=== PATIENT | female | born 1950 | race Caucasian/White ===

== ENCOUNTER → 2020-08-23 | Outpatient (REF) | payer OTHER | LOC: M LAB REF 16:44 | PROVIDERS: ATTEND Internal Medicine Nephrology | DX: R60.9 Edema, unspecified (principal) ==

== ENCOUNTER → 2020-10-03 | Outpatient (REF) | payer OTHER ==
[2020-10-03 17:54] LABS: COMPLEMENT C3 181 MG/DL (90-180); COMPLEMENT C4 39 MG/DL (10-40); TOTAL PROTEIN 8.4 GM/DL (6.4-8.2)
[2020-10-04 09:45] LABS: HEPATITIS B SURFACE ANTIBODY NEGATIVE (POSITIVE)
[2020-10-04 09:55] LABS: HEPATITIS B SURFACE ANTIGEN NEGATIVE (NEGATIVE)
[2020-10-04 10:23] LABS: HEPATITIS C VIRUS ABY INDEX < 0.0 INDEX (<0.8)
[2020-10-04 10:24] LABS: HEPATITIS B CORE ANTIBODY IGM NEGATIVE (NEGATIVE)
[2020-10-04 13:09] LABS: ALBUMIN 4.38 GM/DL (3.29-5.55); ALBUMIN % 52.1 % (55.8-66.1); ALPHA-1-GLOBULIN % 5.1 % (2.9-4.9); ALPHA-1-GLOBULINS 0.43 GM/DL (0.17-0.41); ALPHA-2-GLOBULINS 1.13 GM/DL (0.42-0.99); ALPHA-2-GLOBULINS % 13.5 % (7.1-11.8); BETA-1-GLOBULINS % 7.2 % (4.7-7.2); BETA-2-GLOBULINS 0.56 GM/DL (0.19-0.55); BETA-2-GLOBULINS % 6.7 % (3.2-6.5); GAMMA GLOBULIN % 15.4 % (11.1-18.8); GAMMA GLOBULINS 1.29 GM/DL (0.65-1.58)
== END ==
LOC: M LAB REF 17:00
PROVIDERS: ATTEND Internal Medicine Nephrology
DX: R80.9 Proteinuria, unspecified (principal)

== ENCOUNTER → 2021-03-14 | Outpatient (REF) | payer OTHER | LOC: M LAB REF 17:11 | PROVIDERS: ATTEND Internal Medicine Nephrology | DX: R80.9 Proteinuria, unspecified (principal); E83.42 Hypomagnesemia; N18.31 Chronic kidney disease, stage 3a ==

== ENCOUNTER → 2022-02-20 | Outpatient (REF) | payer OTHER ==
[2022-02-20 23:10] LABS: FERRITIN 103.6 NG/ML (7.3-270.7); PERCENT SATURATION 17.4 % (13.2-45.0)
[2022-02-20 23:15] LABS: FOLATE 16.7 NG/ML (>3.0)
== END ==
LOC: M LAB REF 17:19
PROVIDERS: ATTEND Internal Medicine Nephrology
DX: N18.9 Chronic kidney disease, unspecified (principal); D63.1 Anemia in chronic kidney disease

== ENCOUNTER → 2022-03-12 | Outpatient (CLI) | payer OTHER | LOC: M LABSMTC 11:01 | PROVIDERS: ATTEND Anesthesiology | DX: Z01.812 Encounter for preprocedural laboratory examination (principal); Z20.822 Contact with and (suspected) exposure to COVID-19 ==

== ENCOUNTER 2022-03-16 07:56 | Day surgery (SDC) | payer OTHER ==
[~2022-03-16] VITALS: Ht 152.4 cm; Wt 142.9 kg
[~2022-03-16 07:56] MED LIST: ACET650T61 PO; CALC1CAP31 PO; CARV3.12 PO; GLIM4TAB5 PO; HYDR-3490 PO; INSU100I12 SC; LISI40TA4 PO; MAGN200T PO; NITR4TASL SL; NS 1,000 ML IV ONE; PRESCAP PO; PROBCAP14 PO; SIMV20TA22 PO; SYNT150T PO; insulin N SC
[2022-03-16] MEDS ORDERED: propofoL 200 MG/20 ML VIAL As Ordered ONE ×2 (08:11→09:38)
[2022-03-16] MEDS ORDERED: LIDOCAINE 2% 100MG/5ML SDV (FOR ANES.) As Ordered ONE (08:11)
[2022-03-16] MEDS ORDERED: fentaNYL 100 MCG/2 ML INJECTION As Ordered ONE (08:11)
[2022-03-16] MEDS ORDERED: INSULIN LISPRO (NovoLOG) PER UNIT SC PRN (09:00)
[2022-03-16] MEDS ORDERED: LIDOCAINE VISCOUS 2% SOLN 15ML UDC As Ordered ONE (09:36)
[2022-03-16] MEDS ORDERED: LIDOCAINE 2% JELLY 6ML SYRINGE As Ordered ONE (09:36)
[2022-03-16 10:25] VITALS: BP 132/73
== END 2022-03-16 10:36 | disposition home or self-care (01) ==
LOC: M OPP 07:56
PROVIDERS: ATTEND Internal Medicine Gastroenterology
DX: D12.3 Benign neoplasm of transverse colon (principal); C20 Malignant neoplasm of rectum; D49.0 Neoplasm of unspecified behavior of digestive system; K56.690 Other partial intestinal obstruction; R19.7 Diarrhea, unspecified; K92.1 Melena; Z79.02 Long term (current) use of antithrombotics/antiplatelets; Z79.4 Long term (current) use of insulin; Z79.899 Other long term (current) drug therapy; Z88.0 Allergy status to penicillin; Z88.6 Allergy status to analgesic agent; Z88.8 Allergy status to other drugs, medicaments and biological substances; Z91.013 Allergy to seafood; I10 Essential (primary) hypertension; E11.9 Type 2 diabetes mellitus without complications; E03.9 Hypothyroidism, unspecified; I34.1 Nonrheumatic mitral (valve) prolapse; R10.30 Lower abdominal pain, unspecified; R15.9 Full incontinence of feces; K62.9 Disease of anus and rectum, unspecified; Z87.19 Personal history of other diseases of the digestive system
CPT/HCPCS: 43235; 45380; 45385; 87507; 88305; J1815; J3010

== ENCOUNTER → 2022-04-06 | Outpatient (CLI) | payer OTHER ==
[~2022-04-06] MED LIST changes: +HYDR-3910 PO; +LIDO1CRE2 TOP; +MAGN400C PO; +MIRA3350 PO; -NS 1,000 ML IV ONE
== END ==
LOC: M ONCR 12:43
PROVIDERS: ATTEND General Practice
DX: C20 Malignant neoplasm of rectum (principal); N39.46 Mixed incontinence; M12.9 Arthropathy, unspecified; N81.10 Cystocele, unspecified; Z79.4 Long term (current) use of insulin; Z79.899 Other long term (current) drug therapy; Z88.0 Allergy status to penicillin; Z88.6 Allergy status to analgesic agent; Z88.8 Allergy status to other drugs, medicaments and biological substances; Z90.710 Acquired absence of both cervix and uterus; Z91.013 Allergy to seafood; Z91.018 Allergy to other foods; Z91.048 Other nonmedicinal substance allergy status; Z95.5 Presence of coronary angioplasty implant and graft

== ENCOUNTER 2022-04-16 11:39 | Outpatient (RCR) | payer OTHER ==
[2022-04-19] MEDS ORDERED: CARV6.25 (11:42)
[2022-04-19] MEDS ORDERED: GLIM4TAB5 PO (11:42)
[2022-04-19] MEDS ORDERED: INSUN SC (18:24)
[2022-04-23] MEDS ORDERED: ONDA4TAB6 SL (14:16)
[2022-04-23] MEDS ORDERED: LACT20EL PO (14:16)
[2022-04-24] MEDS ORDERED: LACT20EL PO (14:09)
[2022-05-01] MEDS ORDERED: OXYC-517 PO (11:12)
[2022-05-01] MEDS ORDERED: COLA100C5 PO (11:18)
[2022-05-01] MEDS ORDERED: DEXA4TA PO (11:18)
[2022-05-07] MEDS ORDERED: CONS10SO3 (07:44)
[2022-05-07] MEDS ORDERED: CARV6.25 (07:44)
[2022-05-07] MEDS ORDERED: HYDR25TA PO (09:43)
[2022-05-07] MEDS ORDERED: LISI40TA4 PO (09:43)
[2022-05-08] MEDS ORDERED: OXYC-517 PO (15:57)
== END 2022-05-08 ==
LOC: M ONCR 11:39
PROVIDERS: ATTEND General Practice
DX: C21.0 Malignant neoplasm of anus, unspecified (principal)

== ENCOUNTER → 2022-04-16 | Outpatient (CLI) | payer OTHER | LOC: M LABSMTC 11:58 | PROVIDERS: ATTEND Anesthesiology | DX: Z01.812 Encounter for preprocedural laboratory examination (principal); Z20.822 Contact with and (suspected) exposure to COVID-19 ==

== ENCOUNTER 2022-04-19 11:23 | Inpatient (IN) | payer OTHER ==
[~2022-04-19] VITALS: Ht 154.9 cm; Wt 135.2 kg
[~2022-04-19 11:23] MED LIST changes: -CARV6.25; -INSUN SC; -LACT20EL PO; -NS 1,000 ML IV SCH; -ONDA4TAB6 SL; -VANCOMYCIN HCL 1,000 MG, VIAL MATE ADAPTER 1 EACH in NS 250 ML IV ONE
[2022-04-19] MEDS ORDERED: NS 1,000 ML IV SCH (11:40)
[2022-04-19] MEDS ORDERED: GLIM4TAB5 PO (11:42)
[2022-04-19] MEDS ORDERED: CARV6.25 (11:42)
[2022-04-19 12:30] LABS: BASO # 0.1 10^3/uL (0.0-0.2); BASO % 0.5 % (0.0-1.0); EOS # 0.1 10^3/uL (0.0-0.5); EOS % 0.8 % (0.0-3.0); HEMATOCRIT 37.3 % (36.0-47.0); HEMOGLOBIN 11.9 g/dl (12.0-15.5); LYMPH # 1.4 10^3/uL (1.5-5.0); LYMPH % 12.2 % (24.0-44.0); MEAN CORPUSCULAR HEMOGLOBIN 31.2 pg (27.0-33.0); MEAN CORPUSCULAR HGB CONC 31.9 g/dl (32.0-36.5); MEAN CORPUSCULAR VOLUME 97.6 fl (80.0-96.0); MONO # 0.5 10^3/uL (0.0-0.8); MONO % 4.7 % (2.0-8.0); NEUTROPHILS % 81.5 % (36.0-66.0); PLATELET COUNT, AUTOMATED 218 10^3/uL (150-450); RED BLOOD COUNT 3.82 10^6/uL (4.00-5.40)
[2022-04-19 12:47] LABS: PROTHROMBIN TIME 13.4 SECONDS (12.5-14.5)
[2022-04-19 12:54] LABS: BLOOD UREA NITROGEN 19 MG/DL (9-23); CALCIUM LEVEL 10.1 MG/DL (8.3-10.6); CARBON DIOXIDE LEVEL 26 MMOL/L (20-31); CHLORIDE LEVEL 102 MMOL/L (98-107); CREATININE FOR GFR 0.96 MG/DL (0.55-1.30); GLOMERULAR FILTRATION RATE > 60.0 (>39); GLUCOSE, FASTING 191 MG/DL (74-106); SODIUM LEVEL 138 MMOL/L (136-145)
[2022-04-19 12:54] LABS: ALBUMIN 3.7 G/DL (3.2-5.2); BILIRUBIN,DIRECT 0.2 MG/DL (<0.4); BILIRUBIN,TOTAL 0.5 MG/DL (0.3-1.2); TOTAL PROTEIN 7.3 G/DL (5.7-8.2)
[2022-04-19] MEDS ORDERED: ACETAMINOPHEN 500 MG TAB PO ONE (15:35)
[2022-04-19] MEDS ORDERED: INSUN SC (18:24)
[2022-04-19] MEDS ORDERED: HOME MED LIST COMPLETE! XX SCH (18:25)
[2022-04-19 20:00] LABS: RSV AMPLIFICATION NEGATIVE (NEGATIVE)
[2022-04-19] MEDS ORDERED: GLUCOSE 4GM CHEW TABLET PO PRN (21:30)
[2022-04-19] MEDS ORDERED: DEXTROSE 50% 50ML SYRINGE IV PRN (21:30)
[2022-04-19] MEDS ORDERED: GLUCAGON INJ 1MG VIAL SC PRN (21:30)
[2022-04-19] MEDS ORDERED: MORPHINE 2 MG/ML 1ML VIAL IV PRN (22:05)
[2022-04-19 22:48] VITALS: BP 138/79
[2022-04-20] MEDS: ACETAMINOPHEN TAB 650MG DOSE (2X325MG) PO PRN ×2 (01:20→12:24)
[2022-04-20] MEDS: NYSTATIN 100,000 UNITS/GM TOPICAL PWD 15GM TOP SCH ×3 (01:20→20:36)
[2022-04-20 05:50] VITALS: BP 145/79
[2022-04-20] MEDS: LEVOTHYROXINE 150MCG TABLET (0.15MG) PO SCH (06:08)
[2022-04-20 06:14] LABS: BASO # 0.1 10^3/uL (0.0-0.2); BASO % 0.5 % (0.0-1.0); EOS # 0.2 10^3/uL (0.0-0.5); EOS % 2.2 % (0.0-3.0); HEMATOCRIT 36.1 % (36.0-47.0); HEMOGLOBIN 11.5 g/dl (12.0-15.5); LYMPH # 1.6 10^3/uL (1.5-5.0); LYMPH % 15.8 % (24.0-44.0); MEAN CORPUSCULAR HEMOGLOBIN 30.9 pg (27.0-33.0); MEAN CORPUSCULAR HGB CONC 31.9 g/dl (32.0-36.5); MONO # 0.6 10^3/uL (0.0-0.8); MONO % 5.5 % (2.0-8.0); NEUTROPHILS # 7.7 10^3/uL (1.5-8.5); NEUTROPHILS % 75.6 % (36.0-66.0); PLATELET COUNT, AUTOMATED 221 10^3/uL (150-450); RED BLOOD COUNT 3.72 10^6/uL (4.00-5.40); WHITE BLOOD COUNT 10.2 10^3/uL (4.0-10.0)
[2022-04-20 06:38] LABS: BLOOD UREA NITROGEN 16 MG/DL (9-23); CALCIUM LEVEL 8.9 MG/DL (8.3-10.6); CARBON DIOXIDE LEVEL 26 MMOL/L (20-31); CHLORIDE LEVEL 103 MMOL/L (98-107); CREATININE FOR GFR 0.88 MG/DL (0.55-1.30); GLOMERULAR FILTRATION RATE > 60.0 (>39); GLUCOSE, FASTING 160 MG/DL (74-106); POTASSIUM SERUM 4.6 MMOL/L (3.5-5.1); SODIUM LEVEL 138 MMOL/L (136-145)
[2022-04-20] MEDS: lisinopriL 40MG TAB PO SCH (07:58)
[2022-04-20] MEDS: **hydrALAZINE HCL** 25 MG TAB PO SCH (07:58)
[2022-04-20] MEDS: INSULIN LISPRO (NovoLOG) PER UNIT SC SCH ×4 (07:59→20:35)
[2022-04-20] MEDS ORDERED: ONDANSETRON 4MG ORAL DISINTEGRATING TAB SL PRN (12:40)
[2022-04-20 14:00] VITALS: BP 142/74
[2022-04-20 20:00] VITALS: BP 155/66
[2022-04-20] MEDS: LACTULOSE 20GM/30ML SYRUP UDC PO SCH (20:36)
[2022-04-20] MEDS: SIMVASTATIN 20 MG TAB PO SCH (20:36)
[2022-04-21] MEDS: ACETAMINOPHEN TAB 650MG DOSE (2X325MG) PO PRN ×2 (02:22→21:57)
[2022-04-21] MEDS: diphenhydrAMINE 25MG CAP PO PRN ×2 (02:22→09:38)
[2022-04-21 06:00] VITALS: BP 158/62
[2022-04-21] MEDS: LEVOTHYROXINE 150MCG TABLET (0.15MG) PO SCH (06:28)
[2022-04-21 06:48] LABS: BASO # 0.1 10^3/uL (0.0-0.2); BASO % 0.5 % (0.0-1.0); EOS # 0.3 10^3/uL (0.0-0.5); EOS % 2.8 % (0.0-3.0); HEMATOCRIT 34.9 % (36.0-47.0); HEMOGLOBIN 11.1 g/dl (12.0-15.5); LYMPH # 1.6 10^3/uL (1.5-5.0); LYMPH % 17.1 % (24.0-44.0); MEAN CORPUSCULAR HEMOGLOBIN 30.8 pg (27.0-33.0); MEAN CORPUSCULAR HGB CONC 31.8 g/dl (32.0-36.5); MEAN CORPUSCULAR VOLUME 96.9 fl (80.0-96.0); MONO # 0.6 10^3/uL (0.0-0.8); MONO % 6.7 % (2.0-8.0); NEUTROPHILS # 6.8 10^3/uL (1.5-8.5); NEUTROPHILS % 72.4 % (36.0-66.0); PLATELET COUNT, AUTOMATED 204 10^3/uL (150-450); WHITE BLOOD COUNT 9.4 10^3/uL (4.0-10.0)
[2022-04-21 07:09] LABS: BLOOD UREA NITROGEN 13 MG/DL (9-23); CALCIUM LEVEL 8.6 MG/DL (8.3-10.6); CARBON DIOXIDE LEVEL 26 MMOL/L (20-31); CHLORIDE LEVEL 105 MMOL/L (98-107); CREATININE FOR GFR 0.87 MG/DL (0.55-1.30); GLOMERULAR FILTRATION RATE > 60.0 (>39); GLUCOSE, FASTING 147 MG/DL (74-106); POTASSIUM SERUM 4.2 MMOL/L (3.5-5.1); SODIUM LEVEL 138 MMOL/L (136-145)
[2022-04-21 08:00] VITALS: BP 138/64
[2022-04-21] MEDS ORDERED: FLUBLOK(EGG FREE)(QUAD)INFLUENZA VACC 0.5ML SYRINGE 18YRS & OLDER IM.IMMUN ONE (09:00)
[2022-04-21] MEDS: INSULIN LISPRO (NovoLOG) PER UNIT SC SCH ×4 (09:37→20:01)
[2022-04-21] MEDS: lisinopriL 40MG TAB PO SCH (10:21)
[2022-04-21] MEDS: **hydrALAZINE HCL** 25 MG TAB PO SCH (10:21)
[2022-04-21] MEDS: LACTULOSE 20GM/30ML SYRUP UDC PO SCH ×3 (10:22→20:01)
[2022-04-21] MEDS: NYSTATIN 100,000 UNITS/GM TOPICAL PWD 15GM TOP SCH ×2 (10:26→20:02)
[2022-04-21 14:00] VITALS: BP 142/64
[2022-04-21] MEDS: SIMVASTATIN 20 MG TAB PO SCH (20:01)
[2022-04-22] MEDS: CEPACOL LOZENGE PO PRN ×3 (02:23→20:38)
[2022-04-22] MEDS: LEVOTHYROXINE 150MCG TABLET (0.15MG) PO SCH (05:18)
[2022-04-22 05:35] LABS: BASO # 0.1 10^3/uL (0.0-0.2); BASO % 0.6 % (0.0-1.0); EOS # 0.2 10^3/uL (0.0-0.5); EOS % 2.4 % (0.0-3.0); HEMATOCRIT 34.5 % (36.0-47.0); HEMOGLOBIN 10.9 g/dl (12.0-15.5); LYMPH # 1.5 10^3/uL (1.5-5.0); MEAN CORPUSCULAR HEMOGLOBIN 30.5 pg (27.0-33.0); MEAN CORPUSCULAR HGB CONC 31.6 g/dl (32.0-36.5); MEAN CORPUSCULAR VOLUME 96.6 fl (80.0-96.0); MONO # 0.6 10^3/uL (0.0-0.8); MONO % 6.2 % (2.0-8.0); NEUTROPHILS # 6.6 10^3/uL (1.5-8.5); NEUTROPHILS % 73.4 % (36.0-66.0); PLATELET COUNT, AUTOMATED 203 10^3/uL (150-450); RED BLOOD COUNT 3.57 10^6/uL (4.00-5.40)
[2022-04-22 05:59] LABS: BLOOD UREA NITROGEN 15 MG/DL (9-23); CALCIUM LEVEL 8.8 MG/DL (8.3-10.6); CARBON DIOXIDE LEVEL 24 MMOL/L (20-31); CHLORIDE LEVEL 104 MMOL/L (98-107); CREATININE FOR GFR 0.92 MG/DL (0.55-1.30); GLOMERULAR FILTRATION RATE > 60.0 (>39); GLUCOSE, FASTING 189 MG/DL (74-106); POTASSIUM SERUM 4.1 MMOL/L (3.5-5.1); SODIUM LEVEL 139 MMOL/L (136-145)
[2022-04-22] MEDS: ACETAMINOPHEN TAB 650MG DOSE (2X325MG) PO PRN ×2 (09:30→20:38)
[2022-04-22] MEDS: LACTULOSE 20GM/30ML SYRUP UDC PO SCH ×3 (09:32→20:37)
[2022-04-22] MEDS: lisinopriL 40MG TAB PO SCH (09:33)
[2022-04-22] MEDS: **hydrALAZINE HCL** 25 MG TAB PO SCH (09:33)
[2022-04-22] MEDS: NYSTATIN 100,000 UNITS/GM TOPICAL PWD 15GM TOP SCH ×2 (09:33→20:39)
[2022-04-22] MEDS: INSULIN LISPRO (NovoLOG) PER UNIT SC SCH ×4 (09:34→22:02)
[2022-04-22] MEDS ORDERED: KETOROLAC 30 MG/ML 1ML VIAL IV ONE (13:00)
[2022-04-22 14:00] VITALS: BP 141/64
[2022-04-22] MEDS ORDERED: DICYCLOMINE 10 MG CAP PO ONE (14:00)
[2022-04-22] MEDS: LIDOCAINE 2% JELLY 6ML SYRINGE TOP PRN (17:37)
[2022-04-22] MEDS: SIMVASTATIN 20 MG TAB PO SCH (20:38)
[2022-04-22 22:00] VITALS: BP 128/63
[2022-04-23] MEDS: ACETAMINOPHEN TAB 650MG DOSE (2X325MG) PO PRN ×2 (03:24→10:14)
[2022-04-23] MEDS: CEPACOL LOZENGE PO PRN (04:04)
[2022-04-23] MEDS: LIDOCAINE 2% JELLY 6ML SYRINGE TOP PRN (04:05)
[2022-04-23] MEDS: LEVOTHYROXINE 150MCG TABLET (0.15MG) PO SCH (05:41)
[2022-04-23 06:00] VITALS: BP 130/60
[2022-04-23 06:30] LABS: BASO % 0.5 % (0.0-1.0); EOS # 0.2 10^3/uL (0.0-0.5); EOS % 2.4 % (0.0-3.0); HEMATOCRIT 35.2 % (36.0-47.0); HEMOGLOBIN 11.1 g/dl (12.0-15.5); LYMPH % 12.3 % (24.0-44.0); MEAN CORPUSCULAR HGB CONC 31.5 g/dl (32.0-36.5); MEAN CORPUSCULAR VOLUME 98.3 fl (80.0-96.0); MONO # 0.5 10^3/uL (0.0-0.8); MONO % 5.7 % (2.0-8.0); NEUTROPHILS # 6.6 10^3/uL (1.5-8.5); NEUTROPHILS % 78.9 % (36.0-66.0); PLATELET COUNT, AUTOMATED 197 10^3/uL (150-450); RED BLOOD COUNT 3.58 10^6/uL (4.00-5.40); WHITE BLOOD COUNT 8.4 10^3/uL (4.0-10.0)
[2022-04-23 06:56] LABS: BLOOD UREA NITROGEN 17 MG/DL (9-23); CALCIUM LEVEL 8.8 MG/DL (8.3-10.6); CARBON DIOXIDE LEVEL 26 MMOL/L (20-31); CHLORIDE LEVEL 102 MMOL/L (98-107); GLOMERULAR FILTRATION RATE > 60.0 (>39); GLUCOSE, FASTING 212 MG/DL (74-106); POTASSIUM SERUM 4.5 MMOL/L (3.5-5.1); SODIUM LEVEL 135 MMOL/L (136-145)
[2022-04-23 08:21] VITALS: BP 130/60
[2022-04-23] MEDS: INSULIN LISPRO (NovoLOG) PER UNIT SC SCH ×2 (08:21→12:33)
[2022-04-23] MEDS: lisinopriL 40MG TAB PO SCH (08:21)
[2022-04-23] MEDS: LACTULOSE 20GM/30ML SYRUP UDC PO SCH (08:21)
[2022-04-23] MEDS: **hydrALAZINE HCL** 25 MG TAB PO SCH (08:21)
[2022-04-23] MEDS: NYSTATIN 100,000 UNITS/GM TOPICAL PWD 15GM TOP SCH (08:22)
[2022-04-23 14:00] VITALS: BP 154/58
[2022-04-23] MEDS ORDERED: ONDA4TAB6 SL (14:16)
[2022-04-23] MEDS ORDERED: LACT20EL PO (14:16)
[2022-04-24] MEDS ORDERED: LACT20EL PO (14:09)
== END 2022-04-23 16:02 | disposition home or self-care (01) | DRG 392 ==
LOC: M ED 11:23 → M ED INP 18:04 → M MSPAV 22:47
PROVIDERS: ADMIT Internal Medicine Nephrology; ATTEND Internal Medicine Nephrology
DX: K59.00 Constipation, unspecified (principal); C20 Malignant neoplasm of rectum; K62.5 Hemorrhage of anus and rectum; K82.1 Hydrops of gallbladder; Z68.43 Body mass index [BMI] 50.0-59.9, adult; I10 Essential (primary) hypertension; E66.01 Morbid (severe) obesity due to excess calories; E03.9 Hypothyroidism, unspecified; I25.10 Atherosclerotic heart disease of native coronary artery without angina pectoris; K22.70 Barrett's esophagus without dysplasia; E78.5 Hyperlipidemia, unspecified; M19.90 Unspecified osteoarthritis, unspecified site; Z95.5 Presence of coronary angioplasty implant and graft; R63.0 Anorexia; E11.40 Type 2 diabetes mellitus with diabetic neuropathy, unspecified; Z79.899 Other long term (current) drug therapy; Z79.4 Long term (current) use of insulin; Z88.0 Allergy status to penicillin; Z91.013 Allergy to seafood; Z91.018 Allergy to other foods; Z88.6 Allergy status to analgesic agent; K76.0 Fatty (change of) liver, not elsewhere classified

== ENCOUNTER → 2022-04-19 | Outpatient (CLI) | payer OTHER ==
[~2022-04-19] MED LIST changes: +CARV6.25; +INSUN SC; +LACT20EL PO; +NS 1,000 ML IV SCH; +ONDA4TAB6 SL; +VANCOMYCIN HCL 1,000 MG, VIAL MATE ADAPTER 1 EACH in NS 250 ML IV ONE
== END ==
LOC: M IRPRO 10:37
PROVIDERS: ATTEND Internal Medicine Hematology & Oncology
DX: C21.0 Malignant neoplasm of anus, unspecified (principal); Z53.9 Procedure and treatment not carried out, unspecified reason

== ENCOUNTER → 2022-05-01 | Outpatient (CLI) | payer OTHER ==
[~2022-05-01] VITALS: Ht 152.4 cm; Wt 134.8 kg
[~2022-05-01] MED LIST changes: +CARV6.25; +COLA100C5 PO; +DEXA4TA PO; +INSUN SC; +LACT20EL PO; +ONDA4TAB6 SL; +OXYC-517 PO
[2022-05-01 09:45] VITALS: BP 125/60
== END ==
LOC: M PAL 09:34
PROVIDERS: ATTEND Nurse Practitioner Adult Health
DX: C21.0 Malignant neoplasm of anus, unspecified (principal); Z51.5 Encounter for palliative care; G89.3 Neoplasm related pain (acute) (chronic); R63.0 Anorexia; R11.0 Nausea; E11.9 Type 2 diabetes mellitus without complications; Z79.4 Long term (current) use of insulin; I10 Essential (primary) hypertension; M17.0 Bilateral primary osteoarthritis of knee; M19.011 Primary osteoarthritis, right shoulder; M19.012 Primary osteoarthritis, left shoulder; M19.032 Primary osteoarthritis, left wrist; M19.031 Primary osteoarthritis, right wrist; M54.50 Low back pain, unspecified; Z88.0 Allergy status to penicillin; Z88.8 Allergy status to other drugs, medicaments and biological substances; Z88.6 Allergy status to analgesic agent; Z88.5 Allergy status to narcotic agent; Z91.013 Allergy to seafood; Z79.891 Long term (current) use of opiate analgesic; Z79.899 Other long term (current) drug therapy

== ENCOUNTER → 2022-05-06 | Outpatient (CLI) | payer OTHER ==
[~2022-05-06] MED LIST changes: +CONS10SO3; +HYDR25TA PO
== END ==
LOC: M LABSMTC 11:01
PROVIDERS: ATTEND Anesthesiology
DX: Z20.828 Contact with and (suspected) exposure to other viral communicable diseases (principal); Z11.52 Encounter for screening for COVID-19

== ENCOUNTER → 2022-05-08 | Outpatient (REF) | payer OTHER ==
[2022-05-08 16:01] LABS: BASO # 0.1 10^3/uL (0.0-0.2); BASO % 0.6 % (0.0-1.0); EOS # 0.2 10^3/uL (0.0-0.5); EOS % 1.2 % (0.0-3.0); HEMATOCRIT 40.8 % (36.0-47.0); HEMOGLOBIN 13.2 g/dl (12.0-15.5); LYMPH # 1.6 10^3/uL (1.5-5.0); LYMPH % 11.5 % (24.0-44.0); MEAN CORPUSCULAR HEMOGLOBIN 30.8 pg (27.0-33.0); MEAN CORPUSCULAR HGB CONC 32.4 g/dl (32.0-36.5); MEAN CORPUSCULAR VOLUME 95.3 fl (80.0-96.0); MONO # 0.8 10^3/uL (0.0-0.8); MONO % 5.8 % (2.0-8.0); NEUTROPHILS # 10.8 10^3/uL (1.5-8.5); NEUTROPHILS % 80.5 % (36.0-66.0); PLATELET COUNT, AUTOMATED 274 10^3/uL (150-450); RED BLOOD COUNT 4.28 10^6/uL (4.00-5.40); WHITE BLOOD COUNT 13.4 10^3/uL (4.0-10.0)
[2022-05-08 16:33] LABS: ALBUMIN 3.6 G/DL (3.2-5.2); ALKALINE PHOSPHATASE 62 U/L (46-116); ALT/SGPT 25 U/L (7.0-40); AST/SGOT 17 U/L (<34); BILIRUBIN,TOTAL 0.4 MG/DL (0.3-1.2); BLOOD UREA NITROGEN 23 MG/DL (9-23); CALCIUM LEVEL 10.6 MG/DL (8.3-10.6); CARBON DIOXIDE LEVEL 27 MMOL/L (20-31); CHLORIDE LEVEL 99 MMOL/L (98-107); CHOLESTEROL LEVEL 136 MG/DL (<200); CHOLESTEROL RISK RATIO 2.91 (<5); GLOMERULAR FILTRATION RATE > 60.0 (>39); GLUCOSE, FASTING 167 MG/DL (74-106); HDL CHOLESTEROL 46.7 MG/DL (>40); IRON (FE) 28 UG/DL (50-170); LDL CHOLESTEROL 64.7 MG/DL (<100); NON-HDL-C 89 MG/DL; POTASSIUM SERUM 4.5 MMOL/L (3.5-5.1); SODIUM LEVEL 136 MMOL/L (136-145); TOTAL PROTEIN 7.4 G/DL (5.7-8.2); TRIGLYCERIDES LEVEL 123 MG/DL (<150)
[2022-05-08 16:34] LABS: FERRITIN 152.7 NG/ML (7.3-270.7); THYROID STIMULATING HORMONE 2.967 uIU/ML (0.55-4.78)
[2022-05-08 16:35] LABS: VITAMIN B12 LEVEL 637 PG/ML (211-911)
[2022-05-08 16:36] LABS: FREE T4 1.28 NG/DL (0.89-1.76)
[2022-05-08 18:20] LABS: FOLATE 6.2 NG/ML (>5.4)
== END ==
LOC: M LAB REF 15:30
PROVIDERS: ATTEND Family Medicine
DX: D53.9 Nutritional anemia, unspecified (principal); E87.1 Hypo-osmolality and hyponatremia; E03.9 Hypothyroidism, unspecified; E78.2 Mixed hyperlipidemia

== ENCOUNTER 2022-05-10 11:27 | Inpatient (IN) | payer OTHER ==
[~2022-05-10] VITALS: Ht 154.9 cm; Wt 130.6 kg
[~2022-05-10 11:27] MED LIST changes: +ALVIMOPAN 12 MG CAPSULE (ENTEREG) PO ONE; +CelecoXIB 400 MG CAP PO ONE; +HEPARIN SOD (PORCINE) 5000UNITS/ML 1ML VIAL/SYRINGE SQ ONE; +LIDOCAINE 2% 100MG/5ML SDV (FOR ANES.) As Ordered ONE; +MIDAZOLAM INJ 2MG/2ML VIAL As Ordered ONE; +ROCURONIUM BROMIDE 50MG/5ML VIAL As Ordered ONE; +cefoTEtan DISODIUM 2 GM in D5W MINI-BAG PLUS 50 ML IV ONE; +fentaNYL 250 MCG/5 ML INJECTION As Ordered ONE; +propofoL 200 MG/20 ML VIAL As Ordered ONE
[2022-05-10] MEDS ORDERED: DESFLURANE 240 ML INHALANT As Ordered ONE (11:40)
[2022-05-10] MEDS ORDERED: LR 1,000 ML IV SCH ×2 (11:50→17:10)
[2022-05-10] MEDS ORDERED: BUPIVACAINE HCL 0.25% 30ML VIAL As Ordered ONE ×2 (13:11→13:12)
[2022-05-10] MEDS ORDERED: LIDOCAINE 1% SDV 30ML VIAL As Ordered ONE (13:11)
[2022-05-10] MEDS ORDERED: BUPIVACAINE LIPOSOME/PF 1.3% 20ML VIAL (13.3MG/ML)(EXPAREL) As Ordered ONE (13:11)
[2022-05-10] MEDS ORDERED: LACRILUBE (AKWA TEARS) OPHTH OINT 3.5GM As Ordered ONE (13:52)
[2022-05-10] MEDS ORDERED: ROCURONIUM BROMIDE 50MG/5ML VIAL As Ordered ONE (14:23)
[2022-05-10] MEDS ORDERED: fentaNYL 100 MCG/2 ML INJECTION As Ordered ONE (14:33)
[2022-05-10] MEDS ORDERED: SUGAMMADEX SODIUM 500 MG/5 ML VIAL (BRIDION) As Ordered ONE (15:30)
[2022-05-10] MEDS ORDERED: ACETAMINOPHEN 1000MG 100ML IV BAG As Ordered ONE (15:36)
[2022-05-10] MEDS ORDERED: ONDANSETRON 4MG 2ML VIAL As Ordered ONE (15:37)
[2022-05-10] MEDS ORDERED: oxyCODONE 5MG TAB PO PRN (17:10)
[2022-05-10] MEDS ORDERED: fentaNYL 100 MCG/2 ML INJECTION IV PRN (17:10)
[2022-05-10] MEDS ORDERED: ONDANSETRON 4MG 2ML VIAL IV PRN ×2 (17:10→17:15)
[2022-05-10] MEDS ORDERED: KETOROLAC 30 MG/ML 1ML VIAL IV PRN (17:15)
[2022-05-10] MEDS ORDERED: GLUCAGON INJ 1MG VIAL SC PRN (17:25)
[2022-05-10] MEDS ORDERED: DEXTROSE 50% 50ML SYRINGE IV PRN (17:25)
[2022-05-10] MEDS ORDERED: GLUCOSE 4GM CHEW TABLET PO PRN (17:25)
[2022-05-10] MEDS: INSULIN LISPRO (NovoLOG) PER UNIT SC SCH (17:30)
[2022-05-10 18:51] VITALS: BP 153/70
[2022-05-10 19:30] VITALS: BP 140/67
[2022-05-10 20:30] VITALS: BP 141/68
[2022-05-10] MEDS: DOCUSATE SODIUM 100MG CAPSULE PO SCH (20:53)
[2022-05-10] MEDS: LR 1,000 ML IV SCH (20:53)
[2022-05-10 21:30] VITALS: BP 99/52
[2022-05-10 22:30] VITALS: BP 151/63
[2022-05-10 23:30] VITALS: BP 150/64
[2022-05-10] MEDS: ACETAMINOPHEN TAB 650MG DOSE (2X325MG) PO PRN (23:53)
[2022-05-11 00:30] VITALS: BP 148/71
[2022-05-11 02:00] VITALS: BP 151/78
[2022-05-11] MEDS: LR 1,000 ML IV SCH ×2 (05:44→19:55)
[2022-05-11] MEDS: LEVOTHYROXINE 150MCG TABLET (0.15MG) PO SCH (05:45)
[2022-05-11] MEDS: ACETAMINOPHEN TAB 650MG DOSE (2X325MG) PO PRN ×2 (05:45→19:02)
[2022-05-11 06:00] VITALS: BP 146/62
[2022-05-11 07:18] LABS: BASO # 0.1 10^3/uL (0.0-0.2); BASO % 0.4 % (0.0-1.0); EOS # 0.2 10^3/uL (0.0-0.5); EOS % 1.3 % (0.0-3.0); HEMATOCRIT 32.8 % (36.0-47.0); HEMOGLOBIN 10.4 g/dl (12.0-15.5); LYMPH # 1.7 10^3/uL (1.5-5.0); MEAN CORPUSCULAR HEMOGLOBIN 30.9 pg (27.0-33.0); MEAN CORPUSCULAR HGB CONC 31.7 g/dl (32.0-36.5); MEAN CORPUSCULAR VOLUME 97.3 fl (80.0-96.0); MONO # 0.7 10^3/uL (0.0-0.8); MONO % 6.2 % (2.0-8.0); NEUTROPHILS # 9.2 10^3/uL (1.5-8.5); NEUTROPHILS % 77.7 % (36.0-66.0); PLATELET COUNT, AUTOMATED 209 10^3/uL (150-450); RED BLOOD COUNT 3.37 10^6/uL (4.00-5.40); WHITE BLOOD COUNT 11.8 10^3/uL (4.0-10.0)
[2022-05-11 07:39] LABS: CALCIUM LEVEL 8.3 MG/DL (8.3-10.6); CREATININE FOR GFR 1.08 MG/DL (0.55-1.30); GLOMERULAR FILTRATION RATE 53.2 (>39); POTASSIUM SERUM 4.3 MMOL/L (3.5-5.1)
[2022-05-11] MEDS: ENOXAPARIN 40MG/0.4ML SYRINGE (J1650 PER 10MG) SC SCH (08:23)
[2022-05-11] MEDS: DOCUSATE SODIUM 100MG CAPSULE PO SCH ×2 (08:24→20:06)
[2022-05-11] MEDS: GLIMEPIRIDE 2 MG TAB PO SCH ×2 (08:24→18:31)
[2022-05-11] MEDS: INSULIN LISPRO (NovoLOG) PER UNIT SC SCH ×3 (08:25→18:32)
[2022-05-11] MEDS: PERCOCET 5MG/325MG TAB PO PRN ×2 (08:27→20:05)
[2022-05-11 10:00] VITALS: BP 117/61
[2022-05-11] MEDS: HumuLIN N INSULIN (NovoLIN N) PER UNIT SC SCH ×3 (12:00→20:07)
[2022-05-11 14:00] VITALS: BP 132/64
[2022-05-11 21:47] VITALS: BP 123/59
[2022-05-12] MEDS: LEVOTHYROXINE 150MCG TABLET (0.15MG) PO SCH (05:15)
[2022-05-12] MEDS: PERCOCET 5MG/325MG TAB PO PRN ×2 (05:45→19:58)
[2022-05-12 06:00] VITALS: BP 139/67
[2022-05-12] MEDS: INSULIN LISPRO (NovoLOG) PER UNIT SC SCH ×3 (09:00→17:11)
[2022-05-12] MEDS: GLIMEPIRIDE 2 MG TAB PO SCH ×2 (09:01→17:10)
[2022-05-12] MEDS: ENOXAPARIN 40MG/0.4ML SYRINGE (J1650 PER 10MG) SC SCH (09:01)
[2022-05-12] MEDS: HumuLIN N INSULIN (NovoLIN N) PER UNIT SC SCH ×4 (09:01→19:59)
[2022-05-12] MEDS: ACETAMINOPHEN TAB 650MG DOSE (2X325MG) PO PRN (09:02)
[2022-05-12] MEDS: DOCUSATE SODIUM 100MG CAPSULE PO SCH ×2 (09:02→19:58)
[2022-05-12] MEDS: LR 1,000 ML IV SCH (09:15)
[2022-05-12 14:00] VITALS: BP 146/62
[2022-05-12 22:00] VITALS: BP 146/70
[2022-05-13] MEDS: CEPACOL LOZENGE PO PRN
[2022-05-13] MEDS: LEVOTHYROXINE 150MCG TABLET (0.15MG) PO SCH (05:29)
[2022-05-13 06:00] VITALS: BP_SYST 146; BP_SYST 165; BP_DIAS 70; BP_DIAS 78
[2022-05-13] MEDS: INSULIN LISPRO (NovoLOG) PER UNIT SC SCH ×3 (07:30→17:30)
[2022-05-13] MEDS: DOCUSATE SODIUM 100MG CAPSULE PO SCH ×2 (08:04→21:57)
[2022-05-13] MEDS: diphenhydrAMINE 25MG CAP PO PRN ×3 (08:04→21:57)
[2022-05-13] MEDS: GLIMEPIRIDE 2 MG TAB PO SCH ×2 (08:04→18:00)
[2022-05-13] MEDS: ENOXAPARIN 40MG/0.4ML SYRINGE (J1650 PER 10MG) SC SCH (08:06)
[2022-05-13] MEDS: HumuLIN N INSULIN (NovoLIN N) PER UNIT SC SCH ×4 (08:06→21:00)
[2022-05-13] MEDS: MIRALAX *UNIT DOSE* 17GM PACKET PO SCH ×3 (09:00→21:57)
[2022-05-13] MEDS: DICYCLOMINE 10 MG CAP PO SCH ×2 (11:22→21:57)
[2022-05-13] MEDS: PERCOCET 5MG/325MG TAB PO PRN (11:23)
[2022-05-13 14:00] VITALS: BP 166/77
[2022-05-13] MEDS: PREPARATION H OINTMENT (HEMORRHOID) TOP PRN ×2 (14:32)
[2022-05-13 22:00] VITALS: BP 158/69
[2022-05-14] MEDS: ACETAMINOPHEN TAB 650MG DOSE (2X325MG) PO PRN ×2 (03:13→20:39)
[2022-05-14] MEDS: LEVOTHYROXINE 150MCG TABLET (0.15MG) PO SCH (05:20)
[2022-05-14 06:00] VITALS: BP 159/73
[2022-05-14] MEDS: ENOXAPARIN 40MG/0.4ML SYRINGE (J1650 PER 10MG) SC SCH (08:01)
[2022-05-14] MEDS: GLIMEPIRIDE 2 MG TAB PO SCH (08:01)
[2022-05-14] MEDS: INSULIN LISPRO (NovoLOG) PER UNIT SC SCH ×3 (08:01→17:39)
[2022-05-14] MEDS: MIRALAX *UNIT DOSE* 17GM PACKET PO SCH (08:02)
[2022-05-14] MEDS: DOCUSATE SODIUM 100MG CAPSULE PO SCH ×2 (08:02→20:39)
[2022-05-14] MEDS: DICYCLOMINE 10 MG CAP PO SCH ×2 (08:02→20:41)
[2022-05-14] MEDS: HumuLIN N INSULIN (NovoLIN N) PER UNIT SC SCH (08:02)
[2022-05-14] MEDS: PANTOPRAZOLE 40MG TAB (PROTONIX) PO SCH ×2 (09:00→20:40)
[2022-05-14] MEDS: LACTULOSE 20GM/30ML SYRUP UDC PO SCH ×3 (09:00→20:37)
[2022-05-14] MEDS: DAPAGLIFLOZIN PROPANEDIOL 10MG TABLET (FARXIGA) PO SCH (09:00)
[2022-05-14] MEDS ORDERED: MOM 30ML SUSPENSION UDC PO SCH (09:00)
[2022-05-14] MEDS: PERCOCET 5MG/325MG TAB PO PRN (09:12)
[2022-05-14 09:57] LABS: HEMOGLOBIN 11.4 g/dl (12.0-15.5); MEAN CORPUSCULAR HEMOGLOBIN 31.1 pg (27.0-33.0); MEAN CORPUSCULAR HGB CONC 32.6 g/dl (32.0-36.5); MEAN CORPUSCULAR VOLUME 95.6 fl (80.0-96.0); PLATELET COUNT, AUTOMATED 222 10^3/uL (150-450); RED BLOOD COUNT 3.66 10^6/uL (4.00-5.40); WHITE BLOOD COUNT 10.1 10^3/uL (4.0-10.0)
[2022-05-14 10:13] LABS: CK-MB VALUE MASS < 1.0 NG/ML (<3.6)
[2022-05-14 10:15] LABS: CPK CREATINE PHOSPHOKINASE 27 U/L (34-145)
[2022-05-14 10:20] LABS: ALBUMIN 2.7 G/DL (3.2-5.2); ALKALINE PHOSPHATASE 47 U/L (46-116); ALT/SGPT 17 U/L (7.0-40); AST/SGOT 17 U/L (<34); BILIRUBIN,TOTAL 0.4 MG/DL (0.3-1.2); BLOOD UREA NITROGEN 16 MG/DL (9-23); CALCIUM LEVEL 9.4 MG/DL (8.3-10.6); CARBON DIOXIDE LEVEL 27 MMOL/L (20-31); CHLORIDE LEVEL 100 MMOL/L (98-107); CREATININE FOR GFR 0.78 MG/DL (0.55-1.30); GLOMERULAR FILTRATION RATE > 60.0 (>39); GLUCOSE, FASTING 223 MG/DL (74-106); POTASSIUM SERUM 4.4 MMOL/L (3.5-5.1); SODIUM LEVEL 136 MMOL/L (136-145); TOTAL PROTEIN 6.5 G/DL (5.7-8.2)
[2022-05-14] MEDS ORDERED: PILL CUTTER 1 EACH XX PRN (11:15)
[2022-05-14] MEDS ORDERED: GI COCKTAIL 50ML BTL(HYOSCYAMINE/MAALOX/LIDOCAINE VISCOUS)(1:3:1) PO ONE (11:15)
[2022-05-14 11:44] LABS: HEMOGLOBIN A1c 7.6 % (4.0-6.0)
[2022-05-14] MEDS: metFORMIN (GLUCOPHAGE) 500MG TAB PO SCH ×2 (12:00→17:39)
[2022-05-14] MEDS ORDERED: PRES10CA2 PO (13:04)
[2022-05-14] MEDS ORDERED: SIME80CH6 PO (13:04)
[2022-05-14] MEDS ORDERED: HOME MED LIST COMPLETE! XX SCH (13:05)
[2022-05-14 13:34] VITALS: BP 172/72
[2022-05-14] MEDS: MAGNESIUM OXIDE 400MG TAB (MAG-OX) PO SCH (13:41)
[2022-05-14] MEDS: CALCITRIOL 0.25 MCG CAP (S0169) PO SCH (13:42)
[2022-05-14] MEDS: lisinopriL 40MG TAB PO SCH (13:42)
[2022-05-14] MEDS: **hydrALAZINE HCL** 25 MG TAB PO SCH (13:42)
[2022-05-14] MEDS: HumuLIN R (REGULAR) INSULIN (NovoLIN R) **100U/ML** PER UNIT SC SCH (17:38)
[2022-05-14] MEDS: SIMVASTATIN 20 MG TAB PO SCH (20:40)
[2022-05-14] MEDS ORDERED: LEVEMIR (INSULIN DETEMIR) 1 UNITS/0.01ML SC SCH (21:00)
[2022-05-14 22:00] VITALS: BP 151/60
[2022-05-15 06:00] VITALS: BP 145/71
[2022-05-15 06:05] LABS: BASO # 0.1 10^3/uL (0.0-0.2); BASO % 0.5 % (0.0-1.0); EOS # 0.3 10^3/uL (0.0-0.5); EOS % 2.5 % (0.0-3.0); HEMATOCRIT 31.9 % (36.0-47.0); HEMOGLOBIN 10.3 g/dl (12.0-15.5); LYMPH # 1.7 10^3/uL (1.5-5.0); LYMPH % 15.4 % (24.0-44.0); MEAN CORPUSCULAR HGB CONC 32.3 g/dl (32.0-36.5); MEAN CORPUSCULAR VOLUME 96.1 fl (80.0-96.0); MONO # 0.8 10^3/uL (0.0-0.8); MONO % 6.7 % (2.0-8.0); NEUTROPHILS # 8.4 10^3/uL (1.5-8.5); NEUTROPHILS % 74.5 % (36.0-66.0); PLATELET COUNT, AUTOMATED 213 10^3/uL (150-450); RED BLOOD COUNT 3.32 10^6/uL (4.00-5.40); WHITE BLOOD COUNT 11.3 10^3/uL (4.0-10.0)
[2022-05-15] MEDS: LEVOTHYROXINE 150MCG TABLET (0.15MG) PO SCH (06:17)
[2022-05-15] MEDS: ACETAMINOPHEN TAB 650MG DOSE (2X325MG) PO PRN ×2 (06:18→20:29)
[2022-05-15] MEDS: diphenhydrAMINE 25MG CAP PO PRN ×2 (06:18→20:29)
[2022-05-15 06:26] LABS: BLOOD UREA NITROGEN 18 MG/DL (9-23); CALCIUM LEVEL 9.3 MG/DL (8.3-10.6); CARBON DIOXIDE LEVEL 24 MMOL/L (20-31); CHLORIDE LEVEL 101 MMOL/L (98-107); CREATININE FOR GFR 0.93 MG/DL (0.55-1.30); GLOMERULAR FILTRATION RATE > 60.0 (>39); GLUCOSE, FASTING 169 MG/DL (74-106); POTASSIUM SERUM 4.8 MMOL/L (3.5-5.1); SODIUM LEVEL 136 MMOL/L (136-145)
[2022-05-15] MEDS: HumuLIN R (REGULAR) INSULIN (NovoLIN R) **100U/ML** PER UNIT SC SCH ×3 (07:30→18:11)
[2022-05-15] MEDS: INSULIN LISPRO (NovoLOG) PER UNIT SC SCH ×3 (07:30→18:12)
[2022-05-15 08:00] VITALS: BP 135/58
[2022-05-15] MEDS: metFORMIN (GLUCOPHAGE) 500MG TAB PO SCH ×2 (08:00→18:00)
[2022-05-15] MEDS: PANTOPRAZOLE 40MG TAB (PROTONIX) PO SCH ×2 (09:00→20:30)
[2022-05-15] MEDS: DAPAGLIFLOZIN PROPANEDIOL 10MG TABLET (FARXIGA) PO SCH (09:00)
[2022-05-15] MEDS: DICYCLOMINE 10 MG CAP PO SCH (09:00)
[2022-05-15] MEDS: MAGNESIUM OXIDE 400MG TAB (MAG-OX) PO SCH (10:28)
[2022-05-15] MEDS: DOCUSATE SODIUM 100MG CAPSULE PO SCH ×2 (10:28→20:30)
[2022-05-15] MEDS: lisinopriL 40MG TAB PO SCH (10:29)
[2022-05-15] MEDS: **hydrALAZINE HCL** 25 MG TAB PO SCH (10:30)
[2022-05-15] MEDS: ENOXAPARIN 40MG/0.4ML SYRINGE (J1650 PER 10MG) SC SCH (10:32)
[2022-05-15] MEDS: LACTULOSE 20GM/30ML SYRUP UDC PO SCH (10:32)
[2022-05-15] MEDS ORDERED: LIDOCAINE 5% OINT 30GM TUBE TOP PRN (10:45)
[2022-05-15 14:00] VITALS: BP 132/69
[2022-05-15] MEDS: SIMVASTATIN 20 MG TAB PO SCH (20:30)
[2022-05-15 21:37] VITALS: BP 123/68
[2022-05-16] MEDS: CEPACOL LOZENGE PO PRN (00:09)
[2022-05-16 05:33] VITALS: BP 134/66
[2022-05-16] MEDS: LEVOTHYROXINE 150MCG TABLET (0.15MG) PO SCH (06:02)
[2022-05-16] MEDS: ACETAMINOPHEN TAB 650MG DOSE (2X325MG) PO PRN ×2 (06:02→21:22)
[2022-05-16 06:38] LABS: BASO # 0.1 10^3/uL (0.0-0.2); BASO % 0.6 % (0.0-1.0); EOS # 0.3 10^3/uL (0.0-0.5); EOS % 2.7 % (0.0-3.0); HEMATOCRIT 32.3 % (36.0-47.0); HEMOGLOBIN 10.4 g/dl (12.0-15.5); LYMPH # 1.7 10^3/uL (1.5-5.0); LYMPH % 15.8 % (24.0-44.0); MEAN CORPUSCULAR HGB CONC 32.2 g/dl (32.0-36.5); MEAN CORPUSCULAR VOLUME 96.4 fl (80.0-96.0); MONO # 0.6 10^3/uL (0.0-0.8); NEUTROPHILS % 74.2 % (36.0-66.0); PLATELET COUNT, AUTOMATED 240 10^3/uL (150-450); RED BLOOD COUNT 3.35 10^6/uL (4.00-5.40); WHITE BLOOD COUNT 10.8 10^3/uL (4.0-10.0)
[2022-05-16 06:55] LABS: BLOOD UREA NITROGEN 20 MG/DL (9-23); CALCIUM LEVEL 9.1 MG/DL (8.3-10.6); CARBON DIOXIDE LEVEL 27 MMOL/L (20-31); CHLORIDE LEVEL 102 MMOL/L (98-107); CREATININE FOR GFR 0.92 MG/DL (0.55-1.30); GLOMERULAR FILTRATION RATE > 60.0 (>39); GLUCOSE, FASTING 184 MG/DL (74-106); POTASSIUM SERUM 4.5 MMOL/L (3.5-5.1); SODIUM LEVEL 134 MMOL/L (136-145)
[2022-05-16] MEDS: metFORMIN (GLUCOPHAGE) 500MG TAB PO SCH ×2 (08:00→18:00)
[2022-05-16 08:27] VITALS: BP 135/67
[2022-05-16] MEDS: **hydrALAZINE HCL** 25 MG TAB PO SCH (08:27)
[2022-05-16] MEDS: CALCITRIOL 0.25 MCG CAP (S0169) PO SCH (08:27)
[2022-05-16] MEDS: MAGNESIUM OXIDE 400MG TAB (MAG-OX) PO SCH (08:27)
[2022-05-16] MEDS: ENOXAPARIN 40MG/0.4ML SYRINGE (J1650 PER 10MG) SC SCH (08:28)
[2022-05-16] MEDS: lisinopriL 40MG TAB PO SCH (08:28)
[2022-05-16] MEDS: HumuLIN R (REGULAR) INSULIN (NovoLIN R) **100U/ML** PER UNIT SC SCH ×3 (08:29→18:37)
[2022-05-16] MEDS: INSULIN LISPRO (NovoLOG) PER UNIT SC SCH ×3 (08:29→18:36)
[2022-05-16] MEDS: DAPAGLIFLOZIN PROPANEDIOL 10MG TABLET (FARXIGA) PO SCH (08:44)
[2022-05-16] MEDS: PANTOPRAZOLE 40MG TAB (PROTONIX) PO SCH ×2 (08:45→21:00)
[2022-05-16] MEDS ORDERED: LACTULOSE 20GM/30ML SYRUP UDC PO SCH (09:00)
[2022-05-16 14:00] VITALS: BP 130/69
[2022-05-16] MEDS: DOCUSATE SODIUM 100MG CAPSULE PO SCH (21:22)
[2022-05-16] MEDS: SIMVASTATIN 20 MG TAB PO SCH (21:23)
[2022-05-16 22:00] VITALS: BP 128/70
[2022-05-17] MEDS: LEVOTHYROXINE 150MCG TABLET (0.15MG) PO SCH (05:52)
[2022-05-17 06:00] VITALS: BP 134/71
[2022-05-17] MEDS ORDERED: COLA100C5 PO (06:04)
[2022-05-17] MEDS ORDERED: LACT20EL PO (06:04)
[2022-05-17 06:32] LABS: BASO # 0.1 10^3/uL (0.0-0.2); BASO % 0.6 % (0.0-1.0); EOS # 0.3 10^3/uL (0.0-0.5); EOS % 2.8 % (0.0-3.0); HEMATOCRIT 34.1 % (36.0-47.0); HEMOGLOBIN 10.6 g/dl (12.0-15.5); LYMPH # 1.5 10^3/uL (1.5-5.0); LYMPH % 15.8 % (24.0-44.0); MEAN CORPUSCULAR HEMOGLOBIN 29.9 pg (27.0-33.0); MEAN CORPUSCULAR HGB CONC 31.1 g/dl (32.0-36.5); MEAN CORPUSCULAR VOLUME 96.3 fl (80.0-96.0); MONO # 0.6 10^3/uL (0.0-0.8); MONO % 6.5 % (2.0-8.0); NEUTROPHILS # 6.9 10^3/uL (1.5-8.5); NEUTROPHILS % 73.9 % (36.0-66.0); PLATELET COUNT, AUTOMATED 257 10^3/uL (150-450); RED BLOOD COUNT 3.54 10^6/uL (4.00-5.40); WHITE BLOOD COUNT 9.3 10^3/uL (4.0-10.0)
[2022-05-17 07:01] LABS: BLOOD UREA NITROGEN 18 MG/DL (9-23); CALCIUM LEVEL 9.5 MG/DL (8.3-10.6); CARBON DIOXIDE LEVEL 27 MMOL/L (20-31); CHLORIDE LEVEL 98 MMOL/L (98-107); CREATININE FOR GFR 0.85 MG/DL (0.55-1.30); GLOMERULAR FILTRATION RATE > 60.0 (>39); GLUCOSE, FASTING 212 MG/DL (74-106); POTASSIUM SERUM 4.4 MMOL/L (3.5-5.1); SODIUM LEVEL 135 MMOL/L (136-145)
[2022-05-17] MEDS: HumuLIN R (REGULAR) INSULIN (NovoLIN R) **100U/ML** PER UNIT SC SCH (07:30)
[2022-05-17] MEDS: INSULIN LISPRO (NovoLOG) PER UNIT SC SCH (07:30)
[2022-05-22] MEDS ORDERED: OXYC-517 PO (14:25)
[2022-05-25] MEDS ORDERED: Magic Mouthwash SSP (13:50)
[2022-05-28] MEDS ORDERED: Magic Mouthwash SSP ×2 (11:00→18:07)
[2022-05-28] MEDS ORDERED: LEVO25TA5 PO (11:00)
[2022-06-04] MEDS ORDERED: LIDO15SO4 PO (13:00)
== END 2022-05-17 07:29 | disposition home or self-care (01) | DRG 330 ==
LOC: M OR 11:27 → M MS5PR 18:25
PROVIDERS: ADMIT Surgery; ATTEND Internal Medicine
PROC: 8E0W4CZ Robotic Assisted Procedure of Trunk Region, Percutaneous Endoscopic Approach (ICD-10-PCS; 2022-05-10)
PROC: 0D1N4Z4 Bypass Sigmoid Colon to Cutaneous, Percutaneous Endoscopic Approach (ICD-10-PCS; principal; 2022-05-10 13:00)
DX: C21.0 Malignant neoplasm of anus, unspecified (principal); Z68.43 Body mass index [BMI] 50.0-59.9, adult; K82.1 Hydrops of gallbladder; E66.01 Morbid (severe) obesity due to excess calories; E11.9 Type 2 diabetes mellitus without complications; I10 Essential (primary) hypertension; E78.5 Hyperlipidemia, unspecified; I25.119 Atherosclerotic heart disease of native coronary artery with unspecified angina pectoris; E89.0 Postprocedural hypothyroidism; K76.0 Fatty (change of) liver, not elsewhere classified; K21.9 Gastro-esophageal reflux disease without esophagitis; G89.29 Other chronic pain; K22.70 Barrett's esophagus without dysplasia; R26.89 Other abnormalities of gait and mobility; M19.90 Unspecified osteoarthritis, unspecified site; R14.0 Abdominal distension (gaseous); R07.9 Chest pain, unspecified; T47.4X5A Adverse effect of other laxatives, initial encounter; Z95.5 Presence of coronary angioplasty implant and graft; Z79.890 Hormone replacement therapy; Z79.899 Other long term (current) drug therapy; Z79.4 Long term (current) use of insulin

== ENCOUNTER → 2022-05-17 | Outpatient (CLI) | payer OTHER ==
[~2022-05-17] MED LIST changes: +ACETAMINOPHEN 325 MG TAB As Ordered ONE; +ACETAMINOPHEN TAB 650MG DOSE (2X325MG) PO ONE; -ALVIMOPAN 12 MG CAPSULE (ENTEREG) PO ONE; -CelecoXIB 400 MG CAP PO ONE; -HEPARIN SOD (PORCINE) 5000UNITS/ML 1ML VIAL/SYRINGE SQ ONE; +LIDOCAINE 1% MDV 20ML VIAL As Ordered ONE; -LIDOCAINE 2% 100MG/5ML SDV (FOR ANES.) As Ordered ONE; +NS 1,000 ML IV SCH; +PRES10CA2 PO; +PROMETHAZINE 25MG/ML 1ML VIAL As Ordered ONE; -ROCURONIUM BROMIDE 50MG/5ML VIAL As Ordered ONE; +SIME80CH6 PO; +VANCOMYCIN 1000MG/20ML VIAL As Ordered ONE; +VANCOMYCIN HCL 1,000 MG, VIAL MATE ADAPTER 1 EACH in NS 250 ML IV ONE; -cefoTEtan DISODIUM 2 GM in D5W MINI-BAG PLUS 50 ML IV ONE; +diphenhydrAMINE 50MG/ML VIAL As Ordered ONE; +fentaNYL 100 MCG/2 ML INJECTION As Ordered ONE; -fentaNYL 250 MCG/5 ML INJECTION As Ordered ONE; -propofoL 200 MG/20 ML VIAL As Ordered ONE
[2022-05-17 11:45] VITALS: BP 170/75
== END ==
LOC: M IRPRO 07:38
PROVIDERS: ATTEND Internal Medicine Hematology & Oncology
DX: C21.0 Malignant neoplasm of anus, unspecified (principal)
CPT/HCPCS: 36561; C1769; C1788; C1894; J1200; J2250; J3010

== ENCOUNTER → 2022-05-22 | Outpatient (CLI) | payer OTHER ==
[~2022-05-22] VITALS: Ht 154.9 cm; Wt 131.3 kg
[~2022-05-22] MED LIST changes: -ACETAMINOPHEN 325 MG TAB As Ordered ONE; -ACETAMINOPHEN TAB 650MG DOSE (2X325MG) PO ONE; +LEVO25TA5 PO; +LIDO15SO4 PO; -LIDOCAINE 1% MDV 20ML VIAL As Ordered ONE; -MIDAZOLAM INJ 2MG/2ML VIAL As Ordered ONE; +Magic Mouthwash SSP; -NS 1,000 ML IV SCH; -PROMETHAZINE 25MG/ML 1ML VIAL As Ordered ONE; -VANCOMYCIN 1000MG/20ML VIAL As Ordered ONE; -VANCOMYCIN HCL 1,000 MG, VIAL MATE ADAPTER 1 EACH in NS 250 ML IV ONE; -diphenhydrAMINE 50MG/ML VIAL As Ordered ONE; -fentaNYL 100 MCG/2 ML INJECTION As Ordered ONE
[2022-05-22 13:36] VITALS: BP 112/61
== END ==
LOC: M PAL 13:13
PROVIDERS: ATTEND Nurse Practitioner Adult Health
DX: C21.0 Malignant neoplasm of anus, unspecified (principal); Z51.5 Encounter for palliative care; G89.3 Neoplasm related pain (acute) (chronic); R06.02 Shortness of breath; E11.9 Type 2 diabetes mellitus without complications; Z79.4 Long term (current) use of insulin; R63.0 Anorexia; R11.10 Vomiting, unspecified; Z79.899 Other long term (current) drug therapy; Z79.891 Long term (current) use of opiate analgesic; I10 Essential (primary) hypertension; Z88.5 Allergy status to narcotic agent; Z88.8 Allergy status to other drugs, medicaments and biological substances; Z88.6 Allergy status to analgesic agent; Z88.0 Allergy status to penicillin; Z93.3 Colostomy status

== ENCOUNTER → 2022-06-05 | Outpatient (POV) | payer OTHER ==
[~2022-06-05] MED LIST changes: +LIDVISCBTL SSP; +MM S100C PO; +ONDA4TAB6 PO; +[UNRECOGNIZED DRUG - SUPPLY] TOP
== END ==
LOC: M IRPOV 14:43
PROVIDERS: ATTEND Radiology Diagnostic Radiology
DX: Z01.89 Encounter for other specified special examinations (principal)

== ENCOUNTER → 2022-06-05 | Outpatient (RCR) | payer OTHER | LOC: M ONCR 05-28 13:14 | PROVIDERS: ATTEND General Practice | DX: C21.0 Malignant neoplasm of anus, unspecified (principal) | CPT/HCPCS: 77336; 77386; G0463 ==

== ENCOUNTER 2022-06-08 12:28 | Inpatient (IN) | payer OTHER ==
[~2022-06-08] VITALS: Ht 154.9 cm; Wt 123.6 kg
[~2022-06-08 12:28] MED LIST changes: +LIDO15SO PO; -LIDO15SO4 PO; -LIDVISCBTL SSP; -MM S100C PO; -ONDA4TAB6 PO; -[UNRECOGNIZED DRUG - SUPPLY] TOP
[2022-06-08 13:15] VITALS: BP 133/58
[2022-06-08] MEDS ORDERED: GLUCOSE 4GM CHEW TABLET PO PRN (13:15)
[2022-06-08] MEDS ORDERED: GLUCAGON INJ 1MG VIAL SC PRN (13:15)
[2022-06-08] MEDS ORDERED: DEXTROSE 50% 50ML SYRINGE IV PRN (13:15)
[2022-06-08 14:00] VITALS: BP 133/58
[2022-06-08] MEDS ORDERED: ACETAMINOPHEN 650MG ER TAB (TYLENOL ARTHRITIS) PO PRN (14:25)
[2022-06-08] MEDS ORDERED: MM S100C PO (14:37)
[2022-06-08] MEDS ORDERED: OXYC-517 PO (14:37)
[2022-06-08] MEDS ORDERED: LIDVISCBTL SSP (14:37)
[2022-06-08] MEDS ORDERED: [UNRECOGNIZED DRUG - SUPPLY] TOP (14:37)
[2022-06-08] MEDS ORDERED: ONDA4TAB6 PO (14:37)
[2022-06-08] MEDS ORDERED: LEVO25TA5 PO (14:37)
[2022-06-08] MEDS ORDERED: HOME MED LIST COMPLETE! XX SCH (14:40)
[2022-06-08] MEDS: MAGNESIUM OXIDE 400MG TAB (MAG-OX) PO SCH (15:06)
[2022-06-08] MEDS: ACETAMINOPHEN TAB 650MG DOSE (2X325MG) PO PRN (15:10)
[2022-06-08 15:13] LABS: HEMATOCRIT 30.3 % (36.0-47.0); HEMOGLOBIN 9.8 g/dl (12.0-15.5); MEAN CORPUSCULAR HEMOGLOBIN 30.3 pg (27.0-33.0); MEAN CORPUSCULAR HGB CONC 32.3 g/dl (32.0-36.5); MEAN CORPUSCULAR VOLUME 93.8 fl (80.0-96.0); PLATELET COUNT, AUTOMATED 112 10^3/uL (150-450); RED BLOOD COUNT 3.23 10^6/uL (4.00-5.40); WHITE BLOOD COUNT 3.7 10^3/uL (4.0-10.0)
[2022-06-08 15:38] LABS: ALBUMIN 3.2 G/DL (3.2-5.2); BILIRUBIN,TOTAL 0.5 MG/DL (0.3-1.2); CALCIUM LEVEL 8.6 MG/DL (8.3-10.6); CREATININE FOR GFR 1.34 MG/DL (0.55-1.30); GLOMERULAR FILTRATION RATE 41.5 (>39); POTASSIUM SERUM 4.2 MMOL/L (3.5-5.1); TOTAL PROTEIN 6.7 G/DL (5.7-8.2)
[2022-06-08] MEDS: LIDOCAINE VISCOUS 2% SOLN 15ML UDC SSP SCH ×2 (16:31→21:18)
[2022-06-08] MEDS ORDERED: INSULIN LISPRO (NovoLOG) PER UNIT SC SCH ×2 (17:30→21:00)
[2022-06-08] MEDS: INSULIN LISPRO (NovoLOG) PER UNIT SC SCH ×2 (17:56→20:31)
[2022-06-08 20:00] VITALS: BP 103/45
[2022-06-08] MEDS: DOCUSATE SODIUM 100MG CAPSULE PO SCH ×2 (21:00→21:17)
[2022-06-08] MEDS: SIMVASTATIN 20 MG TAB PO SCH (21:17)
[2022-06-08] MEDS: HEPARIN SOD (PORCINE) 5000UNITS/ML 1ML VIAL/SYRINGE SC SCH (21:18)
[2022-06-09] MEDS: oxyCODONE 5MG TAB PO PRN ×2 (00:20→20:35)
[2022-06-09] MEDS: ACETAMINOPHEN TAB 650MG DOSE (2X325MG) PO PRN ×3 (02:07→16:53)
[2022-06-09] MEDS: LEVOTHYROXINE 25MCG TABLET (0.025MG) PO SCH (05:38)
[2022-06-09] MEDS: LEVOTHYROXINE 150MCG TABLET (0.15MG) PO SCH (05:38)
[2022-06-09] MEDS: HEPARIN SOD (PORCINE) 5000UNITS/ML 1ML VIAL/SYRINGE SC SCH ×3 (05:38→20:36)
[2022-06-09 06:00] VITALS: BP 114/47
[2022-06-09] MEDS: INSULIN LISPRO (NovoLOG) PER UNIT SC SCH ×4 (09:00→20:21)
[2022-06-09] MEDS: LIDOCAINE VISCOUS 2% SOLN 15ML UDC SSP SCH ×3 (09:00→20:36)
[2022-06-09] MEDS: DOCUSATE SODIUM 100MG CAPSULE PO SCH (09:00)
[2022-06-09] MEDS: lisinopriL 40MG TAB PO SCH (09:02)
[2022-06-09] MEDS: **hydrALAZINE HCL** 25 MG TAB PO SCH (09:03)
[2022-06-09 09:39] LABS: CALCIUM LEVEL 8.1 MG/DL (8.3-10.6); CREATININE FOR GFR 1.12 MG/DL (0.55-1.30); GLOMERULAR FILTRATION RATE 51.1 (>39); MAGNESIUM LEVEL 1.5 MG/DL (1.8-2.4); POTASSIUM SERUM 4.1 MMOL/L (3.5-5.1)
[2022-06-09] MEDS ORDERED: MAGNESIUM OXIDE 400MG TAB (MAG-OX) PO ONE (12:00)
[2022-06-09 14:00] VITALS: BP 117/49
[2022-06-09 20:30] VITALS: BP 124/51
[2022-06-09] MEDS: SIMVASTATIN 20 MG TAB PO SCH (20:36)
[2022-06-10] MEDS: ACETAMINOPHEN TAB 650MG DOSE (2X325MG) PO PRN ×2 (03:17→21:08)
[2022-06-10] MEDS: LEVOTHYROXINE 150MCG TABLET (0.15MG) PO SCH (05:32)
[2022-06-10] MEDS: LEVOTHYROXINE 25MCG TABLET (0.025MG) PO SCH (05:32)
[2022-06-10] MEDS: HEPARIN SOD (PORCINE) 5000UNITS/ML 1ML VIAL/SYRINGE SC SCH ×3 (05:33→21:07)
[2022-06-10 06:00] VITALS: BP 115/57
[2022-06-10 08:25] LABS: CALCIUM LEVEL 8.7 MG/DL (8.3-10.6); CREATININE FOR GFR 0.99 MG/DL (0.55-1.30); GLOMERULAR FILTRATION RATE 58.7 (>39); MAGNESIUM LEVEL 1.6 MG/DL (1.8-2.4); POTASSIUM SERUM 4.3 MMOL/L (3.5-5.1)
[2022-06-10] MEDS: LIDOCAINE VISCOUS 2% SOLN 15ML UDC SSP SCH ×3 (09:00→21:00)
[2022-06-10] MEDS ORDERED: MAGNESIUM OXIDE 400MG TAB (MAG-OX) PO ONE (09:30)
[2022-06-10] MEDS: lisinopriL 40MG TAB PO SCH (09:39)
[2022-06-10] MEDS: **hydrALAZINE HCL** 25 MG TAB PO SCH (09:43)
[2022-06-10] MEDS: INSULIN LISPRO (NovoLOG) PER UNIT SC SCH ×4 (09:44→20:37)
[2022-06-10] MEDS: oxyCODONE 5MG TAB PO PRN ×2 (09:47→18:15)
[2022-06-10] MEDS ORDERED: LIDOCAINE 4% CREAM 5GM (LMX4) TOP PRN (09:55)
[2022-06-10 13:57] VITALS: BP_SYST 112; BP_DIAS 52; BP_DIAS 54
[2022-06-10 21:00] VITALS: BP 124/48
[2022-06-10] MEDS: SIMVASTATIN 20 MG TAB PO SCH (21:08)
[2022-06-11] MEDS: BENZOCAINE 20% HEMORRHOIDAL OINTMENT 28GM TUBE TOP PRN ×3 (00:11→12:49)
[2022-06-11] MEDS: HEPARIN SOD (PORCINE) 5000UNITS/ML 1ML VIAL/SYRINGE SC SCH ×3 (05:33→20:49)
[2022-06-11] MEDS: LEVOTHYROXINE 150MCG TABLET (0.15MG) PO SCH (05:34)
[2022-06-11] MEDS: LEVOTHYROXINE 25MCG TABLET (0.025MG) PO SCH (05:34)
[2022-06-11 06:00] VITALS: BP 119/52
[2022-06-11] MEDS: LIDOCAINE VISCOUS 2% SOLN 15ML UDC SSP SCH ×3 (09:00→20:54)
[2022-06-11] MEDS: INSULIN LISPRO (NovoLOG) PER UNIT SC SCH ×4 (09:22→21:00)
[2022-06-11] MEDS: METAMUCIL (PSYLLIUM) PACKET PO SCH ×2 (09:23→20:50)
[2022-06-11] MEDS: **hydrALAZINE HCL** 25 MG TAB PO SCH (09:23)
[2022-06-11] MEDS: MAGNESIUM OXIDE 400MG TAB (MAG-OX) PO SCH (09:23)
[2022-06-11] MEDS: lisinopriL 40MG TAB PO SCH (09:24)
[2022-06-11] MEDS: oxyCODONE 5MG TAB PO PRN ×3 (09:56→22:29)
[2022-06-11 10:56] VITALS: BP 115/51
[2022-06-11 11:17] LABS: CALCIUM LEVEL 8.3 MG/DL (8.3-10.6); CREATININE FOR GFR 1.08 MG/DL (0.55-1.30); GLOMERULAR FILTRATION RATE 53.1 (>39); MAGNESIUM LEVEL 1.6 MG/DL (1.8-2.4); POTASSIUM SERUM 4.2 MMOL/L (3.5-5.1)
[2022-06-11] MEDS: NS 1,000 ML IV SCH ×2 (12:50→22:03)
[2022-06-11] MEDS: ACETAMINOPHEN TAB 650MG DOSE (2X325MG) PO PRN ×2 (13:12→20:50)
[2022-06-11 15:00] VITALS: BP 130/50
[2022-06-11 20:17] VITALS: BP 105/47
[2022-06-11] MEDS: SIMVASTATIN 20 MG TAB PO SCH (20:50)
[2022-06-11] MEDS: SIMETHICONE 80MG CHEW TAB PO PRN (20:53)
[2022-06-12] MEDS: LEVOTHYROXINE 25MCG TABLET (0.025MG) PO SCH (05:39)
[2022-06-12] MEDS: LEVOTHYROXINE 150MCG TABLET (0.15MG) PO SCH (05:39)
[2022-06-12] MEDS: HEPARIN SOD (PORCINE) 5000UNITS/ML 1ML VIAL/SYRINGE SC SCH (05:40)
[2022-06-12 06:00] VITALS: BP 119/60
[2022-06-12 06:29] LABS: CREATININE FOR GFR 1.17 MG/DL (0.55-1.30); GLOMERULAR FILTRATION RATE 48.4 (>39); MAGNESIUM LEVEL 1.4 MG/DL (1.8-2.4); POTASSIUM SERUM 4.5 MMOL/L (3.5-5.1)
[2022-06-12] MEDS: INSULIN LISPRO (NovoLOG) PER UNIT SC SCH ×4 (07:30→22:27)
[2022-06-12] MEDS: LIDOCAINE VISCOUS 2% SOLN 15ML UDC SSP SCH ×3 (08:45→21:00)
[2022-06-12] MEDS: MAGNESIUM OXIDE 400MG TAB (MAG-OX) PO SCH ×2 (08:46→22:53)
[2022-06-12] MEDS: ACETAMINOPHEN TAB 650MG DOSE (2X325MG) PO PRN ×2 (08:47→13:58)
[2022-06-12] MEDS: METAMUCIL (PSYLLIUM) PACKET PO SCH ×2 (08:48→22:54)
[2022-06-12] MEDS: **hydrALAZINE HCL** 25 MG TAB PO SCH (08:48)
[2022-06-12] MEDS: lisinopriL 40MG TAB PO SCH (08:48)
[2022-06-12] MEDS: NS 1,000 ML IV SCH (08:48)
[2022-06-12] MEDS: ONDANSETRON 4MG ORAL DISINTEGRATING TAB PO PRN (08:48)
[2022-06-12 09:35] LABS: BASO % 0.7 % (0.0-1.0); EOS # 0.1 10^3/uL (0.0-0.5); EOS % 4.9 % (0.0-3.0); HEMOGLOBIN 8.8 g/dl (12.0-15.5); LYMPH # 0.4 10^3/uL (1.5-5.0); LYMPH % 26.4 % (24.0-44.0); MEAN CORPUSCULAR HEMOGLOBIN 30.9 pg (27.0-33.0); MEAN CORPUSCULAR HGB CONC 32.6 g/dl (32.0-36.5); MEAN CORPUSCULAR VOLUME 94.7 fl (80.0-96.0); MONO # 0.4 10^3/uL (0.0-0.8); MONO % 24.3 % (2.0-8.0); NEUTROPHILS % 42.3 % (36.0-66.0); RED BLOOD COUNT 2.85 10^6/uL (4.00-5.40); WHITE BLOOD COUNT 1.4 10^3/uL (4.0-10.0)
[2022-06-12 09:49] LABS: NEUTROPHILS # 0.6 10^3/uL (1.5-8.5); PLATELET COUNT, AUTOMATED 66 10^3/uL (150-450)
[2022-06-12] MEDS ORDERED: MAG SULF 1GM/100ML (MAG RUN) 1 GM in IV 1 EA IV ONE (10:00)
[2022-06-12] MEDS: oxyCODONE 5MG TAB PO PRN ×2 (10:32→15:29)
[2022-06-12] MEDS: BENZOCAINE 20% HEMORRHOIDAL OINTMENT 28GM TUBE TOP PRN ×2 (11:42→18:10)
[2022-06-12] MEDS: oxyCODONE 20MG CR TAB PO SCH ×2 (13:58→22:54)
[2022-06-12 14:00] VITALS: BP 104/58
[2022-06-12] MEDS ORDERED: SENOKOT S TAB PO SCH (14:00)
[2022-06-12 22:40] VITALS: BP 110/58
[2022-06-12] MEDS: SIMVASTATIN 20 MG TAB PO SCH (22:53)
[2022-06-13] VITALS (11 sets, daily range): BP systolic 82–121; BP diastolic 40–59; O2SAT 94
[2022-06-13] MEDS: LEVOTHYROXINE 25MCG TABLET (0.025MG) PO SCH (05:51)
[2022-06-13] MEDS: LEVOTHYROXINE 150MCG TABLET (0.15MG) PO SCH (05:51)
[2022-06-13] MEDS: INSULIN LISPRO (NovoLOG) PER UNIT SC SCH ×4 (08:17→22:20)
[2022-06-13] MEDS: MAGNESIUM OXIDE 400MG TAB (MAG-OX) PO SCH ×2 (08:18→22:30)
[2022-06-13] MEDS: LIDOCAINE VISCOUS 2% SOLN 15ML UDC SSP SCH ×3 (08:19→22:26)
[2022-06-13] MEDS: oxyCODONE 20MG CR TAB PO SCH ×2 (08:19→22:30)
[2022-06-13] MEDS: METAMUCIL (PSYLLIUM) PACKET PO SCH ×2 (08:19→22:25)
[2022-06-13] MEDS ORDERED: lisinopriL 40MG TAB PO SCH (09:00)
[2022-06-13] MEDS ORDERED: hydroCHLOROthiazide 12.5 MG CAPSULE PO SCH (09:00)
[2022-06-13] MEDS: oxyCODONE 5MG TAB PO PRN (11:54)
[2022-06-13] MEDS: ONDANSETRON 4MG ORAL DISINTEGRATING TAB PO PRN (17:59)
[2022-06-13] MEDS ORDERED: SODIUM CHLORIDE 0.9% 1000ML IV ONE (19:45)
[2022-06-13 20:07] LABS: HEMATOCRIT 29.2 % (36.0-47.0); HEMOGLOBIN 9.6 g/dl (12.0-15.5); MEAN CORPUSCULAR HEMOGLOBIN 30.9 pg (27.0-33.0); MEAN CORPUSCULAR HGB CONC 32.9 g/dl (32.0-36.5); MEAN CORPUSCULAR VOLUME 93.9 fl (80.0-96.0); PLATELET COUNT, AUTOMATED 101 10^3/uL (150-450); RED BLOOD COUNT 3.11 10^6/uL (4.00-5.40); WHITE BLOOD COUNT 3.5 10^3/uL (4.0-10.0)
[2022-06-13 20:50] LABS: EOSINOPHILS 3 % (0-3); LYMPHOCYTES 11 % (16-44); METAMYELOCYTES 1 % (0-0); MONOCYTES 10 % (0-5); MYELOCYTES 8 % (0-0); NEUTROPHILS 60 % (28-66); PLATELET ESTIMATE DECREASED (NORMAL)
[2022-06-13] MEDS ORDERED: NS 500 ML IV ONE (20:55)
[2022-06-13 21:16] LABS: ALBUMIN 2.7 G/DL (3.2-5.2); ALKALINE PHOSPHATASE 48 U/L (46-116); ALT/SGPT 17 U/L (7.0-40); AST/SGOT < 8 U/L (<34); BILIRUBIN,TOTAL 0.2 MG/DL (0.3-1.2); BLOOD UREA NITROGEN 43 MG/DL (9-23); CALCIUM LEVEL 8.5 MG/DL (8.3-10.6); CARBON DIOXIDE LEVEL 24 MMOL/L (20-31); CHLORIDE LEVEL 97 MMOL/L (98-107); CREATININE FOR GFR 1.97 MG/DL (0.55-1.30); GLOMERULAR FILTRATION RATE 26.5 (>39); GLUCOSE, FASTING 188 MG/DL (74-106); POTASSIUM SERUM 4.7 MMOL/L (3.5-5.1); SODIUM LEVEL 129 MMOL/L (136-145)
[2022-06-13] MEDS ORDERED: NS 1,000 ML IV ONE (21:20)
[2022-06-13] MEDS: SODIUM CHLORIDE 0.9% INJ 10 ML SYR IV PRN ×2 (21:36→23:22)
[2022-06-13 22:16] LABS: MAGNESIUM LEVEL 1.6 MG/DL (1.8-2.4)
[2022-06-13] MEDS: SIMVASTATIN 20 MG TAB PO SCH (22:30)
[2022-06-14] VITALS (25 sets, daily range): BP systolic 107–131; BP diastolic 40–63; O2SAT 94–100
[2022-06-14] MEDS: LR 1,000 ML IV SCH ×2 (00:43→08:35)
[2022-06-14] MEDS: ACETAMINOPHEN TAB 650MG DOSE (2X325MG) PO PRN (04:41)
[2022-06-14 05:13] LABS: HEMATOCRIT 27.1 % (36.0-47.0); HEMOGLOBIN 8.7 g/dl (12.0-15.5); MEAN CORPUSCULAR HEMOGLOBIN 30.7 pg (27.0-33.0); MEAN CORPUSCULAR HGB CONC 32.1 g/dl (32.0-36.5); MEAN CORPUSCULAR VOLUME 95.8 fl (80.0-96.0); PLATELET COUNT, AUTOMATED 100 10^3/uL (150-450); RED BLOOD COUNT 2.83 10^6/uL (4.00-5.40); WHITE BLOOD COUNT 3.2 10^3/uL (4.0-10.0)
[2022-06-14 05:38] LABS: CREATININE FOR GFR 1.65 MG/DL (0.55-1.30); GLOMERULAR FILTRATION RATE 32.6 (>39); MAGNESIUM LEVEL 1.6 MG/DL (1.8-2.4)
[2022-06-14] MEDS: LEVOTHYROXINE 150MCG TABLET (0.15MG) PO SCH (05:46)
[2022-06-14] MEDS: LEVOTHYROXINE 25MCG TABLET (0.025MG) PO SCH (05:46)
[2022-06-14 06:09] LABS: BASOPHILS 5 % (0-1); EOSINOPHILS 4 % (0-3); LYMPHOCYTES 22 % (16-44); MONOCYTES 9 % (0-5); MYELOCYTES 3 % (0-0); NEUTROPHILS 55 % (28-66); PLATELET ESTIMATE NORMAL (NORMAL)
[2022-06-14] MEDS: INSULIN LISPRO (NovoLOG) PER UNIT SC SCH ×4 (07:30→20:42)
[2022-06-14] MEDS: SODIUM CHLORIDE 0.9% INJ 10 ML SYR IV SCH (08:09)
[2022-06-14] MEDS: LIDOCAINE VISCOUS 2% SOLN 15ML UDC SSP SCH ×4 (08:32→20:40)
[2022-06-14] MEDS: oxyCODONE 20MG CR TAB PO SCH ×2 (08:35→20:40)
[2022-06-14] MEDS: MAG SULF 1GM/100ML (MAG RUN) 1 GM in IV 1 EA IV SCH ×2 (08:35→13:01)
[2022-06-14] MEDS: MAGNESIUM OXIDE 400MG TAB (MAG-OX) PO SCH ×2 (08:35→20:39)
[2022-06-14] MEDS: DULoxetine 30MG CAPSULE (CYMBALTA) PO SCH ×2 (09:00→12:48)
[2022-06-14] MEDS: oxyCODONE 5MG TAB PO PRN (11:23)
[2022-06-14] MEDS: METAMUCIL (PSYLLIUM) PACKET PO SCH ×2 (12:48→20:58)
[2022-06-14] MEDS ORDERED: MAG SULF 1GM/100ML (MAG RUN) 1 GM in IV 1 EA IV SCH (13:00)
[2022-06-14 13:54] LABS: APPEARANCE, URINE HAZY (CLEAR); BACTERIA, URINE AUTO 3+ (NEGATIVE); BILIRUBIN, URINE AUTO NEGATIVE (NEGATIVE); BLOOD, URINE BLOOD NEGATIVE (NEGATIVE); COLOR, URINE YELLOW (YELLOW); GLUCOSE, URINE (UA) AUTO NEGATIVE (NEGATIVE); KETONE, URINE AUTO NEGATIVE (NEGATIVE); LEUKOCYTE ESTERASE, URINE AUTO TRACE (NEGATIVE); MUCUS, URINE SMALL (NEGATIVE); NITRITE, URINE AUTO NEGATIVE (NEGATIVE); PROTEIN, URINE AUTO 1+ mg/dL (NEGATIVE); RBC, URINE AUTO 1 /HPF (0-3); SPECIFIC GRAVITY URINE AUTO 1.014 (1.002-1.035); SQUAMOUS EPITHELIAL CELL UR AU 1 /HPF (0-6); UROBILINOGEN, URINE AUTO 0.2 mg/dL (0.0-2.0); WBC, URINE AUTO 6 /HPF (0-3)
[2022-06-14] MEDS: GABAPENTIN 100 MG CAP PO SCH ×2 (17:33→20:59)
[2022-06-14] MEDS: cefTRIAXone SOD 1 GM in D5W MINI-BAG PLUS 50 ML IV SCH (17:34)
[2022-06-14] MEDS ORDERED: LevoFLOXacin 500 MG TABLET PO ONE (18:00)
[2022-06-14] MEDS: SIMVASTATIN 20 MG TAB PO SCH (20:40)
[2022-06-15] VITALS (26 sets, daily range): BP systolic 116–145; BP diastolic 51–73; O2SAT 87–99
[2022-06-15] MEDS: ACETAMINOPHEN TAB 650MG DOSE (2X325MG) PO PRN ×3 (03:47→23:29)
[2022-06-15] MEDS: LEVOTHYROXINE 25MCG TABLET (0.025MG) PO SCH (05:24)
[2022-06-15] MEDS: LEVOTHYROXINE 150MCG TABLET (0.15MG) PO SCH (05:24)
[2022-06-15 06:27] LABS: BASO % 0.5 % (0.0-1.0); EOS # 0.1 10^3/uL (0.0-0.5); EOS % 2.5 % (0.0-3.0); HEMATOCRIT 27.2 % (36.0-47.0); HEMOGLOBIN 8.6 g/dl (12.0-15.5); LYMPH # 0.5 10^3/uL (1.5-5.0); LYMPH % 11.4 % (24.0-44.0); MEAN CORPUSCULAR HGB CONC 31.6 g/dl (32.0-36.5); MEAN CORPUSCULAR VOLUME 94.8 fl (80.0-96.0); MONO # 0.6 10^3/uL (0.0-0.8); MONO % 15.4 % (2.0-8.0); NEUTROPHILS # 2.8 10^3/uL (1.5-8.5); NEUTROPHILS % 68.2 % (36.0-66.0); PLATELET COUNT, AUTOMATED 105 10^3/uL (150-450); RED BLOOD COUNT 2.87 10^6/uL (4.00-5.40)
[2022-06-15 06:56] LABS: CALCIUM LEVEL 8.1 MG/DL (8.3-10.6); CREATININE FOR GFR 1.35 MG/DL (0.55-1.30); POTASSIUM SERUM 5.1 MMOL/L (3.5-5.1)
[2022-06-15] MEDS: METAMUCIL (PSYLLIUM) PACKET PO SCH ×2 (09:35→21:00)
[2022-06-15] MEDS: SODIUM CHLORIDE 0.9% INJ 10 ML SYR IV SCH (09:35)
[2022-06-15] MEDS: MAGNESIUM OXIDE 400MG TAB (MAG-OX) PO SCH ×2 (09:36→20:59)
[2022-06-15] MEDS: GABAPENTIN 100 MG CAP PO SCH ×3 (09:36→21:00)
[2022-06-15] MEDS: LIDOCAINE VISCOUS 2% SOLN 15ML UDC SSP SCH ×3 (09:36→20:59)
[2022-06-15] MEDS: BENZOCAINE 20% HEMORRHOIDAL OINTMENT 28GM TUBE TOP PRN (09:36)
[2022-06-15] MEDS: oxyCODONE 20MG CR TAB PO SCH ×2 (09:37→20:59)
[2022-06-15] MEDS: DULoxetine 30MG CAPSULE (CYMBALTA) PO SCH (09:37)
[2022-06-15] MEDS: INSULIN LISPRO (NovoLOG) PER UNIT SC SCH ×4 (10:09→20:59)
[2022-06-15] MEDS: oxyCODONE 5MG TAB PO PRN (12:36)
[2022-06-15] MEDS: cefTRIAXone SOD 1 GM in D5W MINI-BAG PLUS 50 ML IV SCH ×2 (17:49→21:00)
[2022-06-15] MEDS ORDERED: LevoFLOXacin 250 MG TABLET PO SCH (18:00)
[2022-06-15] MEDS ORDERED: LevoFLOXacin 250 MG TABLET PO ONE (20:00)
[2022-06-15] MEDS: SIMVASTATIN 20 MG TAB PO SCH (20:59)
[2022-06-16] VITALS (12 sets, daily range): BP systolic 115–140; BP diastolic 53–69; O2SAT 93–98
[2022-06-16] MEDS: oxyCODONE 5MG TAB PO PRN ×2 (00:06→22:03)
[2022-06-16] MEDS ORDERED: MORPHINE 2 MG/ML 1ML VIAL IV ONE (04:30)
[2022-06-16] MEDS ORDERED: oxyCODONE 5MG TAB PO ONE (05:00)
[2022-06-16] MEDS: LEVOTHYROXINE 25MCG TABLET (0.025MG) PO SCH (05:01)
[2022-06-16] MEDS: LEVOTHYROXINE 150MCG TABLET (0.15MG) PO SCH (05:01)
[2022-06-16 05:16] LABS: BASO % 0.5 % (0.0-1.0); EOS # 0.1 10^3/uL (0.0-0.5); EOS % 2.7 % (0.0-3.0); HEMOGLOBIN 8.5 g/dl (12.0-15.5); LYMPH # 0.4 10^3/uL (1.5-5.0); LYMPH % 9.4 % (24.0-44.0); MEAN CORPUSCULAR HGB CONC 31.5 g/dl (32.0-36.5); MEAN CORPUSCULAR VOLUME 95.4 fl (80.0-96.0); MONO # 0.6 10^3/uL (0.0-0.8); MONO % 12.8 % (2.0-8.0); NEUTROPHILS # 3.2 10^3/uL (1.5-8.5); NEUTROPHILS % 72.1 % (36.0-66.0); PLATELET COUNT, AUTOMATED 111 10^3/uL (150-450); RED BLOOD COUNT 2.83 10^6/uL (4.00-5.40); WHITE BLOOD COUNT 4.4 10^3/uL (4.0-10.0)
[2022-06-16 05:32] LABS: CALCIUM LEVEL 8.1 MG/DL (8.3-10.6); CREATININE FOR GFR 0.99 MG/DL (0.55-1.30); GLOMERULAR FILTRATION RATE 58.7 (>39); MAGNESIUM LEVEL 1.7 MG/DL (1.8-2.4); POTASSIUM SERUM 5.4 MMOL/L (3.5-5.1)
[2022-06-16] MEDS ORDERED: oxyCODONE 5MG TAB PO PRN (07:15)
[2022-06-16] MEDS: INSULIN LISPRO (NovoLOG) PER UNIT SC SCH ×4 (08:48→20:14)
[2022-06-16] MEDS: oxyCODONE 20MG CR TAB PO SCH ×2 (08:50→20:21)
[2022-06-16] MEDS: DULoxetine 30MG CAPSULE (CYMBALTA) PO SCH (08:52)
[2022-06-16] MEDS: GABAPENTIN 100 MG CAP PO SCH ×3 (08:52→20:21)
[2022-06-16] MEDS: MAGNESIUM OXIDE 400MG TAB (MAG-OX) PO SCH ×2 (08:52→20:21)
[2022-06-16] MEDS: LEVEMIR (INSULIN DETEMIR) 1 UNITS/0.01ML SC SCH (08:53)
[2022-06-16] MEDS: SODIUM CHLORIDE 0.9% INJ 10 ML SYR IV SCH (08:59)
[2022-06-16] MEDS: LIDOCAINE VISCOUS 2% SOLN 15ML UDC SSP SCH ×4 (09:00→20:34)
[2022-06-16] MEDS: METAMUCIL (PSYLLIUM) PACKET PO SCH ×2 (09:00→20:19)
[2022-06-16] MEDS ORDERED: LevoFLOXacin 250 MG TABLET PO SCH (18:00)
[2022-06-16] MEDS: cefTRIAXone SOD 1 GM in D5W MINI-BAG PLUS 50 ML IV SCH (20:19)
[2022-06-16] MEDS: SIMVASTATIN 20 MG TAB PO SCH (20:21)
[2022-06-17 03:21] VITALS: BP 120/53
[2022-06-17] MEDS: LEVOTHYROXINE 150MCG TABLET (0.15MG) PO SCH (05:23)
[2022-06-17] MEDS: oxyCODONE 5MG TAB PO PRN ×4 (05:24→22:25)
[2022-06-17] MEDS: LEVOTHYROXINE 25MCG TABLET (0.025MG) PO SCH (05:24)
[2022-06-17 05:30] LABS: BASO % 0.4 % (0.0-1.0); EOS # 0.1 10^3/uL (0.0-0.5); EOS % 2.2 % (0.0-3.0); HEMATOCRIT 25.6 % (36.0-47.0); HEMOGLOBIN 7.9 g/dl (12.0-15.5); LYMPH # 0.4 10^3/uL (1.5-5.0); LYMPH % 8.3 % (24.0-44.0); MEAN CORPUSCULAR HEMOGLOBIN 29.6 pg (27.0-33.0); MEAN CORPUSCULAR HGB CONC 30.9 g/dl (32.0-36.5); MEAN CORPUSCULAR VOLUME 95.9 fl (80.0-96.0); MONO # 0.5 10^3/uL (0.0-0.8); NEUTROPHILS # 3.4 10^3/uL (1.5-8.5); NEUTROPHILS % 75.2 % (36.0-66.0); PLATELET COUNT, AUTOMATED 122 10^3/uL (150-450); RED BLOOD COUNT 2.67 10^6/uL (4.00-5.40); WHITE BLOOD COUNT 4.5 10^3/uL (4.0-10.0)
[2022-06-17 05:56] LABS: CALCIUM LEVEL 8.3 MG/DL (8.3-10.6); CREATININE FOR GFR 0.98 MG/DL (0.55-1.30); GLOMERULAR FILTRATION RATE 59.4 (>39); POTASSIUM SERUM 5.6 MMOL/L (3.5-5.1)
[2022-06-17] MEDS: INSULIN LISPRO (NovoLOG) PER UNIT SC SCH ×4 (07:30→20:56)
[2022-06-17 07:58] VITALS: BP 150/65
[2022-06-17] MEDS: LEVEMIR (INSULIN DETEMIR) 1 UNITS/0.01ML SC SCH (08:38)
[2022-06-17] MEDS: MAGNESIUM OXIDE 400MG TAB (MAG-OX) PO SCH ×2 (08:39→21:12)
[2022-06-17] MEDS: GABAPENTIN 100 MG CAP PO SCH ×3 (08:39→21:11)
[2022-06-17] MEDS: DULoxetine 30MG CAPSULE (CYMBALTA) PO SCH (08:40)
[2022-06-17] MEDS: ONDANSETRON 4MG ORAL DISINTEGRATING TAB PO PRN (08:40)
[2022-06-17] MEDS: SODIUM CHLORIDE 0.9% INJ 10 ML SYR IV SCH (08:44)
[2022-06-17] MEDS: oxyCODONE 20MG CR TAB PO SCH ×2 (08:45→21:13)
[2022-06-17] MEDS: METAMUCIL (PSYLLIUM) PACKET PO SCH ×2 (08:46→21:13)
[2022-06-17] MEDS: LIDOCAINE VISCOUS 2% SOLN 15ML UDC SSP SCH ×3 (08:46→21:00)
[2022-06-17] MEDS ORDERED: MIRALAX *UNIT DOSE* 17GM PACKET PO PRN (10:55)
[2022-06-17] MEDS ORDERED: NS 500 ML IV ONE (10:55)
[2022-06-17] MEDS ORDERED: FUROSEMIDE 40MG/4ML VIAL IV ONE (10:55)
[2022-06-17] MEDS: SENOKOT S TAB PO SCH ×2 (11:03→21:11)
[2022-06-17] MEDS: oxyBUTYnin 5 MG TAB PO PRN ×2 (11:03→22:19)
[2022-06-17 12:00] VITALS: BP 139/74
[2022-06-17 15:15] VITALS: BP 135/47
[2022-06-17 20:18] VITALS: BP 132/56
[2022-06-17] MEDS: SIMVASTATIN 20 MG TAB PO SCH (21:11)
[2022-06-17] MEDS: cefTRIAXone SOD 1 GM in D5W MINI-BAG PLUS 50 ML IV SCH (21:14)
[2022-06-17] MEDS: SODIUM CHLORIDE 0.9% INJ 10 ML SYR IV PRN (22:20)
[2022-06-18 02:00] VITALS: BP 124/64
[2022-06-18] MEDS: LEVOTHYROXINE 150MCG TABLET (0.15MG) PO SCH (05:48)
[2022-06-18] MEDS: LEVOTHYROXINE 25MCG TABLET (0.025MG) PO SCH (05:48)
[2022-06-18 06:08] VITALS: BP 136/84
[2022-06-18] MEDS: oxyCODONE 5MG TAB PO PRN ×3 (06:08→18:44)
[2022-06-18 07:12] LABS: BASO % 0.4 % (0.0-1.0); EOS # 0.1 10^3/uL (0.0-0.5); EOS % 1.9 % (0.0-3.0); HEMATOCRIT 26.2 % (36.0-47.0); HEMOGLOBIN 8.4 g/dl (12.0-15.5); LYMPH # 0.3 10^3/uL (1.5-5.0); LYMPH % 6.4 % (24.0-44.0); MEAN CORPUSCULAR HEMOGLOBIN 30.7 pg (27.0-33.0); MEAN CORPUSCULAR HGB CONC 32.1 g/dl (32.0-36.5); MEAN CORPUSCULAR VOLUME 95.6 fl (80.0-96.0); MONO # 0.4 10^3/uL (0.0-0.8); MONO % 9.1 % (2.0-8.0); NEUTROPHILS # 3.8 10^3/uL (1.5-8.5); NEUTROPHILS % 78.5 % (36.0-66.0); PLATELET COUNT, AUTOMATED 130 10^3/uL (150-450); RED BLOOD COUNT 2.74 10^6/uL (4.00-5.40); WHITE BLOOD COUNT 4.8 10^3/uL (4.0-10.0)
[2022-06-18 07:49] LABS: BLOOD UREA NITROGEN 23 MG/DL (9-23); CALCIUM LEVEL 8.1 MG/DL (8.3-10.6); CARBON DIOXIDE LEVEL 28 MMOL/L (20-31); CHLORIDE LEVEL 98 MMOL/L (98-107); CREATININE FOR GFR 0.94 MG/DL (0.55-1.30); GLOMERULAR FILTRATION RATE > 60.0 (>39); GLUCOSE, FASTING 161 MG/DL (74-106); POTASSIUM SERUM 5.3 MMOL/L (3.5-5.1); SODIUM LEVEL 130 MMOL/L (136-145)
[2022-06-18] MEDS: METAMUCIL (PSYLLIUM) PACKET PO SCH (08:27)
[2022-06-18] MEDS: LIDOCAINE VISCOUS 2% SOLN 15ML UDC SSP SCH ×4 (08:27→21:00)
[2022-06-18] MEDS: MAGNESIUM OXIDE 400MG TAB (MAG-OX) PO SCH ×2 (08:28→21:28)
[2022-06-18] MEDS: DULoxetine 30MG CAPSULE (CYMBALTA) PO SCH (08:28)
[2022-06-18] MEDS: SENOKOT S TAB PO SCH ×2 (08:28→21:28)
[2022-06-18] MEDS: SODIUM CHLORIDE 0.9% INJ 10 ML SYR IV SCH (08:28)
[2022-06-18] MEDS: GABAPENTIN 100 MG CAP PO SCH ×3 (08:28→21:28)
[2022-06-18] MEDS: LEVEMIR (INSULIN DETEMIR) 1 UNITS/0.01ML SC SCH (08:29)
[2022-06-18] MEDS: INSULIN LISPRO (NovoLOG) PER UNIT SC SCH ×4 (08:29→20:57)
[2022-06-18] MEDS: oxyCODONE 20MG CR TAB PO SCH ×2 (08:32→21:29)
[2022-06-18] MEDS: CEFDINIR 300 MG CAP (OMNICEF) PO SCH ×2 (12:13→21:28)
[2022-06-18] MEDS ORDERED: FUROSEMIDE 40MG/4ML VIAL IV ONE (13:10)
[2022-06-18] MEDS: oxyBUTYnin 5 MG TAB PO PRN (13:59)
[2022-06-18 14:00] VITALS: BP 112/43
[2022-06-18] MEDS: LACTULOSE 20GM/30ML SYRUP UDC PO SCH (18:01)
[2022-06-18 20:55] VITALS: BP 124/46
[2022-06-18] MEDS: SIMVASTATIN 20 MG TAB PO SCH (21:28)
[2022-06-18] MEDS: HEPARIN SOD (PORCINE) 5000UNITS/ML 1ML VIAL/SYRINGE SQ SCH (21:29)
[2022-06-19] MEDS: LACTULOSE 20GM/30ML SYRUP UDC PO SCH ×5 (00:08→22:18)
[2022-06-19] MEDS: oxyBUTYnin 5 MG TAB PO PRN ×2 (05:23→19:47)
[2022-06-19] MEDS: LEVOTHYROXINE 25MCG TABLET (0.025MG) PO SCH (05:23)
[2022-06-19] MEDS: LEVOTHYROXINE 150MCG TABLET (0.15MG) PO SCH (05:23)
[2022-06-19 05:45] VITALS: BP 123/49
[2022-06-19 06:13] LABS: BASO % 0.4 % (0.0-1.0); EOS # 0.1 10^3/uL (0.0-0.5); EOS % 1.7 % (0.0-3.0); HEMATOCRIT 26.6 % (36.0-47.0); HEMOGLOBIN 8.5 g/dl (12.0-15.5); LYMPH # 0.3 10^3/uL (1.5-5.0); LYMPH % 5.4 % (24.0-44.0); MONO # 0.4 10^3/uL (0.0-0.8); MONO % 6.5 % (2.0-8.0); NEUTROPHILS # 4.4 10^3/uL (1.5-8.5); NEUTROPHILS % 82.1 % (36.0-66.0); PLATELET COUNT, AUTOMATED 128 10^3/uL (150-450); RED BLOOD COUNT 2.83 10^6/uL (4.00-5.40); WHITE BLOOD COUNT 5.4 10^3/uL (4.0-10.0)
[2022-06-19 07:05] LABS: BLOOD UREA NITROGEN 22 MG/DL (9-23); CALCIUM LEVEL 8.1 MG/DL (8.3-10.6); CARBON DIOXIDE LEVEL 26 MMOL/L (20-31); CHLORIDE LEVEL 97 MMOL/L (98-107); CREATININE FOR GFR 0.96 MG/DL (0.55-1.30); GLOMERULAR FILTRATION RATE > 60.0 (>39); GLUCOSE, FASTING 169 MG/DL (74-106); MAGNESIUM LEVEL 1.4 MG/DL (1.8-2.4); POTASSIUM SERUM 5.5 MMOL/L (3.5-5.1); SODIUM LEVEL 129 MMOL/L (136-145)
[2022-06-19] MEDS: oxyCODONE 20MG CR TAB PO SCH ×2 (08:06→22:17)
[2022-06-19] MEDS ORDERED: FUROSEMIDE 40MG/4ML VIAL IV ONE (08:10)
[2022-06-19 08:30] VITALS: BP 116/47
[2022-06-19] MEDS: LIDOCAINE VISCOUS 2% SOLN 15ML UDC SSP SCH ×3 (09:00→16:00)
[2022-06-19] MEDS ORDERED: MAG SULF 1GM/100ML (MAG RUN) 1 GM in IV 1 EA IV ONE (09:00)
[2022-06-19 09:45] VITALS: BP 113/54
[2022-06-19] MEDS: INSULIN LISPRO (NovoLOG) PER UNIT SC SCH ×4 (09:53→20:08)
[2022-06-19] MEDS: HEPARIN SOD (PORCINE) 5000UNITS/ML 1ML VIAL/SYRINGE SQ SCH ×2 (10:13→22:18)
[2022-06-19] MEDS: SENOKOT S TAB PO SCH ×2 (10:17→22:17)
[2022-06-19] MEDS: DULoxetine 30MG CAPSULE (CYMBALTA) PO SCH (10:17)
[2022-06-19] MEDS: CEFDINIR 300 MG CAP (OMNICEF) PO SCH ×2 (10:17→22:16)
[2022-06-19] MEDS: oxyCODONE 5MG TAB PO PRN (10:17)
[2022-06-19] MEDS: GABAPENTIN 100 MG CAP PO SCH ×3 (10:17→22:18)
[2022-06-19] MEDS: MAGNESIUM OXIDE 400MG TAB (MAG-OX) PO SCH ×2 (10:18→22:17)
[2022-06-19] MEDS: LEVEMIR (INSULIN DETEMIR) 1 UNITS/0.01ML SC SCH (10:20)
[2022-06-19] MEDS: SODIUM CHLORIDE 0.9% INJ 10 ML SYR IV SCH (10:34)
[2022-06-19 14:00] VITALS: BP 103/44
[2022-06-19 15:02] LABS: BLOOD UREA NITROGEN 21 MG/DL (9-23); CALCIUM LEVEL 8.7 MG/DL (8.3-10.6); CARBON DIOXIDE LEVEL 27 MMOL/L (20-31); CHLORIDE LEVEL 95 MMOL/L (98-107); CREATININE FOR GFR 0.93 MG/DL (0.55-1.30); GLOMERULAR FILTRATION RATE > 60.0 (>39); GLUCOSE, FASTING 199 MG/DL (74-106); POTASSIUM SERUM 4.8 MMOL/L (3.5-5.1); SODIUM LEVEL 129 MMOL/L (136-145)
[2022-06-19 22:00] VITALS: BP 123/49
[2022-06-19] MEDS: SIMVASTATIN 20 MG TAB PO SCH (22:17)
[2022-06-20] MEDS: oxyCODONE 5MG TAB PO PRN ×2 (00:14→10:22)
[2022-06-20] MEDS: LEVOTHYROXINE 25MCG TABLET (0.025MG) PO SCH (05:35)
[2022-06-20] MEDS: LACTULOSE 20GM/30ML SYRUP UDC PO SCH ×4 (05:35→23:39)
[2022-06-20] MEDS: LEVOTHYROXINE 150MCG TABLET (0.15MG) PO SCH (05:35)
[2022-06-20 06:00] VITALS: BP 133/53
[2022-06-20 06:18] LABS: BASO % 0.4 % (0.0-1.0); EOS # 0.1 10^3/uL (0.0-0.5); HEMATOCRIT 26.1 % (36.0-47.0); HEMOGLOBIN 8.7 g/dl (12.0-15.5); LYMPH # 0.4 10^3/uL (1.5-5.0); LYMPH % 7.8 % (24.0-44.0); MEAN CORPUSCULAR HEMOGLOBIN 30.9 pg (27.0-33.0); MEAN CORPUSCULAR HGB CONC 33.3 g/dl (32.0-36.5); MEAN CORPUSCULAR VOLUME 92.6 fl (80.0-96.0); MONO # 0.3 10^3/uL (0.0-0.8); MONO % 6.3 % (2.0-8.0); NEUTROPHILS # 3.9 10^3/uL (1.5-8.5); PLATELET COUNT, AUTOMATED 117 10^3/uL (150-450); RED BLOOD COUNT 2.82 10^6/uL (4.00-5.40); WHITE BLOOD COUNT 4.9 10^3/uL (4.0-10.0)
[2022-06-20 06:49] LABS: BLOOD UREA NITROGEN 19 MG/DL (9-23); CALCIUM LEVEL 8.4 MG/DL (8.3-10.6); CARBON DIOXIDE LEVEL 29 MMOL/L (20-31); CHLORIDE LEVEL 96 MMOL/L (98-107); CREATININE FOR GFR 0.83 MG/DL (0.55-1.30); GLOMERULAR FILTRATION RATE > 60.0 (>39); GLUCOSE, FASTING 189 MG/DL (74-106); MAGNESIUM LEVEL 1.4 MG/DL (1.8-2.4); POTASSIUM SERUM 4.6 MMOL/L (3.5-5.1); SODIUM LEVEL 129 MMOL/L (136-145)
[2022-06-20] MEDS ORDERED: MAG SULF 1GM/100ML (MAG RUN) 1 GM in IV 1 EA IV ONE (07:50)
[2022-06-20] MEDS ORDERED: FUROSEMIDE 40MG/4ML VIAL IV ONE (07:50)
[2022-06-20] MEDS: INSULIN LISPRO (NovoLOG) PER UNIT SC SCH ×4 (08:31→20:10)
[2022-06-20] MEDS: LEVEMIR (INSULIN DETEMIR) 1 UNITS/0.01ML SC SCH (08:31)
[2022-06-20] MEDS: HEPARIN SOD (PORCINE) 5000UNITS/ML 1ML VIAL/SYRINGE SQ SCH ×2 (08:31→21:08)
[2022-06-20] MEDS: SENOKOT S TAB PO SCH ×2 (08:32→21:07)
[2022-06-20] MEDS: GABAPENTIN 100 MG CAP PO SCH ×3 (08:32→21:07)
[2022-06-20] MEDS: DULoxetine 30MG CAPSULE (CYMBALTA) PO SCH (08:32)
[2022-06-20] MEDS: MAGNESIUM OXIDE 400MG TAB (MAG-OX) PO SCH ×2 (08:32→21:07)
[2022-06-20] MEDS: oxyCODONE 20MG CR TAB PO SCH ×2 (08:36→21:08)
[2022-06-20] MEDS: ONDANSETRON 4MG ORAL DISINTEGRATING TAB PO PRN ×2 (08:37→17:47)
[2022-06-20] MEDS: SODIUM CHLORIDE 0.9% INJ 10 ML SYR IV SCH (08:37)
[2022-06-20] MEDS: METAMUCIL (PSYLLIUM) PACKET PO SCH ×2 (10:22→21:07)
[2022-06-20 14:00] VITALS: BP 116/54
[2022-06-20] MEDS: SIMVASTATIN 20 MG TAB PO SCH (21:07)
[2022-06-20 22:00] VITALS: BP 119/43
[2022-06-21] MEDS: LEVOTHYROXINE 25MCG TABLET (0.025MG) PO SCH (05:33)
[2022-06-21] MEDS: LEVOTHYROXINE 150MCG TABLET (0.15MG) PO SCH (05:33)
[2022-06-21] MEDS: LACTULOSE 20GM/30ML SYRUP UDC PO SCH ×3 (05:33→18:24)
[2022-06-21 05:54] LABS: BASO % 0.6 % (0.0-1.0); EOS # 0.1 10^3/uL (0.0-0.5); EOS % 2.2 % (0.0-3.0); HEMATOCRIT 25.5 % (36.0-47.0); HEMOGLOBIN 8.3 g/dl (12.0-15.5); LYMPH # 0.3 10^3/uL (1.5-5.0); LYMPH % 6.1 % (24.0-44.0); MEAN CORPUSCULAR HEMOGLOBIN 30.3 pg (27.0-33.0); MEAN CORPUSCULAR HGB CONC 32.5 g/dl (32.0-36.5); MEAN CORPUSCULAR VOLUME 93.1 fl (80.0-96.0); MONO # 0.4 10^3/uL (0.0-0.8); MONO % 7.1 % (2.0-8.0); NEUTROPHILS # 4.1 10^3/uL (1.5-8.5); NEUTROPHILS % 81.6 % (36.0-66.0); PLATELET COUNT, AUTOMATED 113 10^3/uL (150-450); RED BLOOD COUNT 2.74 10^6/uL (4.00-5.40); WHITE BLOOD COUNT 5.1 10^3/uL (4.0-10.0)
[2022-06-21 06:00] VITALS: BP 125/48
[2022-06-21 06:16] LABS: BLOOD UREA NITROGEN 17 MG/DL (9-23); CALCIUM LEVEL 8.2 MG/DL (8.3-10.6); CARBON DIOXIDE LEVEL 30 MMOL/L (20-31); CHLORIDE LEVEL 95 MMOL/L (98-107); CREATININE FOR GFR 0.95 MG/DL (0.55-1.30); GLOMERULAR FILTRATION RATE > 60.0 (>39); GLUCOSE, FASTING 153 MG/DL (74-106); MAGNESIUM LEVEL 1.5 MG/DL (1.8-2.4); POTASSIUM SERUM 4.6 MMOL/L (3.5-5.1); SODIUM LEVEL 129 MMOL/L (136-145)
[2022-06-21] MEDS ORDERED: MAG SULF 1GM/100ML (MAG RUN) 1 GM in IV 1 EA IV ONE (08:00)
[2022-06-21] MEDS: METAMUCIL (PSYLLIUM) PACKET PO SCH ×2 (08:17→20:24)
[2022-06-21] MEDS: SODIUM CHLORIDE 0.9% INJ 10 ML SYR IV SCH (08:18)
[2022-06-21] MEDS: INSULIN LISPRO (NovoLOG) PER UNIT SC SCH ×4 (08:19→20:09)
[2022-06-21] MEDS: LEVEMIR (INSULIN DETEMIR) 1 UNITS/0.01ML SC SCH (08:19)
[2022-06-21] MEDS: oxyCODONE 20MG CR TAB PO SCH ×2 (08:19→20:24)
[2022-06-21] MEDS: DULoxetine 30MG CAPSULE (CYMBALTA) PO SCH (08:20)
[2022-06-21] MEDS: GABAPENTIN 100 MG CAP PO SCH ×3 (08:20→20:25)
[2022-06-21] MEDS: MAGNESIUM OXIDE 400MG TAB (MAG-OX) PO SCH ×2 (08:20→20:25)
[2022-06-21] MEDS: ONDANSETRON 4MG ORAL DISINTEGRATING TAB PO PRN ×2 (08:20→18:00)
[2022-06-21] MEDS: SENOKOT S TAB PO SCH ×2 (08:20→20:25)
[2022-06-21] MEDS: HEPARIN SOD (PORCINE) 5000UNITS/ML 1ML VIAL/SYRINGE SQ SCH ×2 (08:21→20:26)
[2022-06-21] MEDS: ACETAMINOPHEN TAB 650MG DOSE (2X325MG) PO PRN (10:44)
[2022-06-21] MEDS: MIDODRINE 2.5 MG TAB PO SCH ×2 (12:50→16:00)
[2022-06-21 14:00] VITALS: BP 133/54
[2022-06-21] MEDS: FUROSEMIDE injection 250 MG in D5W 225 ML IV SCH (14:31)
[2022-06-21] MEDS: oxyBUTYnin 5 MG TAB PO PRN (19:22)
[2022-06-21 20:00] VITALS: BP 128/50
[2022-06-21 20:21] VITALS: BP 135/50
[2022-06-21] MEDS: SIMVASTATIN 20 MG TAB PO SCH (20:25)
[2022-06-22] VITALS (7 sets, daily range): BP systolic 65–132; BP diastolic 48–71
[2022-06-22] MEDS: LEVOTHYROXINE 150MCG TABLET (0.15MG) PO SCH (05:55)
[2022-06-22] MEDS: LEVOTHYROXINE 25MCG TABLET (0.025MG) PO SCH (05:55)
[2022-06-22 06:31] LABS: BASO % 0.4 % (0.0-1.0); EOS # 0.2 10^3/uL (0.0-0.5); EOS % 3.2 % (0.0-3.0); HEMATOCRIT 26.6 % (36.0-47.0); HEMOGLOBIN 8.7 g/dl (12.0-15.5); LYMPH # 0.3 10^3/uL (1.5-5.0); LYMPH % 5.5 % (24.0-44.0); MEAN CORPUSCULAR HEMOGLOBIN 30.2 pg (27.0-33.0); MEAN CORPUSCULAR HGB CONC 32.7 g/dl (32.0-36.5); MEAN CORPUSCULAR VOLUME 92.4 fl (80.0-96.0); MONO # 0.4 10^3/uL (0.0-0.8); MONO % 6.9 % (2.0-8.0); NEUTROPHILS # 4.3 10^3/uL (1.5-8.5); NEUTROPHILS % 81.9 % (36.0-66.0); PLATELET COUNT, AUTOMATED 107 10^3/uL (150-450); RED BLOOD COUNT 2.88 10^6/uL (4.00-5.40); WHITE BLOOD COUNT 5.2 10^3/uL (4.0-10.0)
[2022-06-22 07:00] LABS: ALBUMIN 2.3 G/DL (3.2-5.2); BILIRUBIN,TOTAL 0.2 MG/DL (0.3-1.2); CALCIUM LEVEL 8.2 MG/DL (8.3-10.6); CREATININE FOR GFR 1.07 MG/DL (0.55-1.30); GLOMERULAR FILTRATION RATE 53.7 (>39); MAGNESIUM LEVEL 1.5 MG/DL (1.8-2.4); POTASSIUM SERUM 4.2 MMOL/L (3.5-5.1); TOTAL PROTEIN 5.2 G/DL (5.7-8.2)
[2022-06-22] MEDS: METAMUCIL (PSYLLIUM) PACKET PO SCH ×2 (08:17→20:39)
[2022-06-22] MEDS: INSULIN LISPRO (NovoLOG) PER UNIT SC SCH ×4 (08:18→20:42)
[2022-06-22] MEDS: LEVEMIR (INSULIN DETEMIR) 1 UNITS/0.01ML SC SCH (08:18)
[2022-06-22] MEDS: oxyCODONE 20MG CR TAB PO SCH ×2 (08:19→20:41)
[2022-06-22] MEDS: DULoxetine 30MG CAPSULE (CYMBALTA) PO SCH (08:19)
[2022-06-22] MEDS: HEPARIN SOD (PORCINE) 5000UNITS/ML 1ML VIAL/SYRINGE SQ SCH ×2 (08:19→20:40)
[2022-06-22] MEDS: MIDODRINE 2.5 MG TAB PO SCH ×3 (08:19→16:59)
[2022-06-22] MEDS: MAGNESIUM OXIDE 400MG TAB (MAG-OX) PO SCH ×2 (08:20→20:41)
[2022-06-22] MEDS: SENOKOT S TAB PO SCH ×2 (08:20→20:41)
[2022-06-22] MEDS: GABAPENTIN 100 MG CAP PO SCH ×3 (08:20→20:45)
[2022-06-22] MEDS: SODIUM CHLORIDE 0.9% INJ 10 ML SYR IV SCH (08:21)
[2022-06-22] MEDS: oxyCODONE 5MG TAB PO PRN (10:37)
[2022-06-22] MEDS ORDERED: MAG SULF 1GM/100ML (MAG RUN) 1 GM in IV 1 EA IV ONE (11:00)
[2022-06-22] MEDS: FUROSEMIDE injection 250 MG in D5W 225 ML IV SCH (17:00)
[2022-06-22] MEDS: SIMVASTATIN 20 MG TAB PO SCH (20:41)
[2022-06-23 06:00] VITALS: BP 120/48
[2022-06-23] MEDS: LEVOTHYROXINE 150MCG TABLET (0.15MG) PO SCH (06:25)
[2022-06-23] MEDS: LEVOTHYROXINE 25MCG TABLET (0.025MG) PO SCH (06:25)
[2022-06-23 07:22] LABS: BASO % 0.3 % (0.0-1.0); EOS # 0.2 10^3/uL (0.0-0.5); HEMOGLOBIN 8.9 g/dl (12.0-15.5); LYMPH # 0.4 10^3/uL (1.5-5.0); LYMPH % 6.8 % (24.0-44.0); MEAN CORPUSCULAR HEMOGLOBIN 30.1 pg (27.0-33.0); MEAN CORPUSCULAR VOLUME 91.2 fl (80.0-96.0); MONO # 0.5 10^3/uL (0.0-0.8); MONO % 7.7 % (2.0-8.0); NEUTROPHILS # 5.1 10^3/uL (1.5-8.5); NEUTROPHILS % 80.6 % (36.0-66.0); RED BLOOD COUNT 2.96 10^6/uL (4.00-5.40); WHITE BLOOD COUNT 6.4 10^3/uL (4.0-10.0)
[2022-06-23 07:45] VITALS: BP 141/63
[2022-06-23 07:45] LABS: PLATELET COUNT, AUTOMATED 96 10^3/uL (150-450)
[2022-06-23 07:51] LABS: ALBUMIN 2.5 G/DL (3.2-5.2); BILIRUBIN,TOTAL 0.2 MG/DL (0.3-1.2); CALCIUM LEVEL 8.3 MG/DL (8.3-10.6); CREATININE FOR GFR 1.21 MG/DL (0.55-1.30); GLOMERULAR FILTRATION RATE 46.6 (>39); MAGNESIUM LEVEL 1.4 MG/DL (1.8-2.4); POTASSIUM SERUM 4.4 MMOL/L (3.5-5.1); TOTAL PROTEIN 5.4 G/DL (5.7-8.2)
[2022-06-23] MEDS: ONDANSETRON 4MG ORAL DISINTEGRATING TAB PO PRN ×2 (08:12→14:22)
[2022-06-23] MEDS: INSULIN LISPRO (NovoLOG) PER UNIT SC SCH ×4 (08:16→20:20)
[2022-06-23] MEDS: LEVEMIR (INSULIN DETEMIR) 1 UNITS/0.01ML SC SCH (08:17)
[2022-06-23] MEDS: SODIUM CHLORIDE 0.9% INJ 10 ML SYR IV SCH (09:00)
[2022-06-23] MEDS ORDERED: MAG SULF 1GM/100ML (MAG RUN) 1 GM in IV 1 EA IV ONE (09:00)
[2022-06-23] MEDS: DULoxetine 30MG CAPSULE (CYMBALTA) PO SCH (09:28)
[2022-06-23] MEDS: MAGNESIUM OXIDE 400MG TAB (MAG-OX) PO SCH ×2 (09:28→21:37)
[2022-06-23] MEDS: SENOKOT S TAB PO SCH ×2 (09:28→21:39)
[2022-06-23] MEDS: oxyCODONE 20MG CR TAB PO SCH ×2 (09:29→21:40)
[2022-06-23] MEDS: MIDODRINE 2.5 MG TAB PO SCH ×3 (09:29→15:19)
[2022-06-23] MEDS: GABAPENTIN 100 MG CAP PO SCH ×3 (09:30→21:37)
[2022-06-23] MEDS: METAMUCIL (PSYLLIUM) PACKET PO SCH ×2 (09:30→21:37)
[2022-06-23] MEDS: HEPARIN SOD (PORCINE) 5000UNITS/ML 1ML VIAL/SYRINGE SQ SCH ×2 (09:30→21:41)
[2022-06-23] MEDS: FUROSEMIDE injection 250 MG in D5W 225 ML IV SCH (12:30)
[2022-06-23 14:05] VITALS: BP 132/63
[2022-06-23 20:00] VITALS: BP 132/48
[2022-06-23] MEDS: SIMVASTATIN 20 MG TAB PO SCH (21:37)
[2022-06-24] MEDS: FUROSEMIDE injection 250 MG in D5W 225 ML IV SCH ×3 (03:55→21:09)
[2022-06-24 03:56] VITALS: BP 130/48
[2022-06-24] MEDS: POLYVINYL ALCOHOL OPHTH SOLN 15ML (LIQUITEARS) OU PRN ×2 (03:56→09:04)
[2022-06-24] MEDS: LEVOTHYROXINE 150MCG TABLET (0.15MG) PO SCH (05:22)
[2022-06-24] MEDS: LEVOTHYROXINE 25MCG TABLET (0.025MG) PO SCH (05:22)
[2022-06-24 06:00] VITALS: BP 128/49
[2022-06-24 06:04] LABS: BASO % 0.4 % (0.0-1.0); EOS # 0.3 10^3/uL (0.0-0.5); EOS % 5.4 % (0.0-3.0); HEMATOCRIT 25.7 % (36.0-47.0); HEMOGLOBIN 8.7 g/dl (12.0-15.5); LYMPH # 0.3 10^3/uL (1.5-5.0); LYMPH % 6.4 % (24.0-44.0); MEAN CORPUSCULAR HEMOGLOBIN 31.1 pg (27.0-33.0); MEAN CORPUSCULAR HGB CONC 33.9 g/dl (32.0-36.5); MEAN CORPUSCULAR VOLUME 91.8 fl (80.0-96.0); MONO # 0.5 10^3/uL (0.0-0.8); MONO % 8.7 % (2.0-8.0); NEUTROPHILS % 78.1 % (36.0-66.0); WHITE BLOOD COUNT 5.2 10^3/uL (4.0-10.0)
[2022-06-24 06:11] LABS: PLATELET COUNT, AUTOMATED 82 10^3/uL (150-450)
[2022-06-24 06:36] LABS: ALBUMIN 2.4 G/DL (3.2-5.2); BILIRUBIN,TOTAL 0.3 MG/DL (0.3-1.2); CALCIUM LEVEL 8.4 MG/DL (8.3-10.6); CREATININE FOR GFR 1.2 MG/DL (0.55-1.30); MAGNESIUM LEVEL 1.4 MG/DL (1.8-2.4); POTASSIUM SERUM 3.5 MMOL/L (3.5-5.1); TOTAL PROTEIN 5.4 G/DL (5.7-8.2)
[2022-06-24] MEDS: INSULIN LISPRO (NovoLOG) PER UNIT SC SCH ×4 (07:57→21:00)
[2022-06-24] MEDS: ONDANSETRON 4MG ORAL DISINTEGRATING TAB PO PRN (07:57)
[2022-06-24] MEDS: SODIUM CHLORIDE 0.9% INJ 10 ML SYR IV SCH (09:00)
[2022-06-24] MEDS: LEVEMIR (INSULIN DETEMIR) 1 UNITS/0.01ML SC SCH (09:00)
[2022-06-24] MEDS ORDERED: MAG SULF 1GM/100ML (MAG RUN) 1 GM in IV 1 EA IV ONE (09:00)
[2022-06-24] MEDS: oxyCODONE 20MG CR TAB PO SCH ×2 (09:01→21:07)
[2022-06-24] MEDS: MIDODRINE 2.5 MG TAB PO SCH ×3 (09:01→16:46)
[2022-06-24] MEDS: GABAPENTIN 100 MG CAP PO SCH ×3 (09:02→21:06)
[2022-06-24] MEDS: SENOKOT S TAB PO SCH ×3 (09:02→22:34)
[2022-06-24] MEDS: MAGNESIUM OXIDE 400MG TAB (MAG-OX) PO SCH ×2 (09:02→21:07)
[2022-06-24] MEDS: METAMUCIL (PSYLLIUM) PACKET PO SCH ×2 (09:02→21:06)
[2022-06-24] MEDS: DULoxetine 30MG CAPSULE (CYMBALTA) PO SCH (09:02)
[2022-06-24] MEDS: HEPARIN SOD (PORCINE) 5000UNITS/ML 1ML VIAL/SYRINGE SQ SCH ×2 (09:03→21:08)
[2022-06-24] MEDS: POTASSIUM CHLORIDE 10MEQ SR TABLET PO SCH ×2 (12:55→16:47)
[2022-06-24 14:00] VITALS: BP 127/61
[2022-06-24 20:00] VITALS: BP 131/57
[2022-06-24] MEDS: SIMVASTATIN 20 MG TAB PO SCH (21:06)
[2022-06-25] MEDS: LEVOTHYROXINE 25MCG TABLET (0.025MG) PO SCH (05:09)
[2022-06-25] MEDS: LEVOTHYROXINE 150MCG TABLET (0.15MG) PO SCH (05:09)
[2022-06-25] MEDS: POLYVINYL ALCOHOL OPHTH SOLN 15ML (LIQUITEARS) OU PRN (05:10)
[2022-06-25 06:00] VITALS: BP 127/55
[2022-06-25 06:05] LABS: BASO % 0.6 % (0.0-1.0); EOS # 0.3 10^3/uL (0.0-0.5); EOS % 4.1 % (0.0-3.0); HEMATOCRIT 27.2 % (36.0-47.0); LYMPH # 0.3 10^3/uL (1.5-5.0); LYMPH % 5.3 % (24.0-44.0); MEAN CORPUSCULAR HEMOGLOBIN 30.3 pg (27.0-33.0); MEAN CORPUSCULAR HGB CONC 33.1 g/dl (32.0-36.5); MEAN CORPUSCULAR VOLUME 91.6 fl (80.0-96.0); MONO # 0.6 10^3/uL (0.0-0.8); MONO % 9.1 % (2.0-8.0); NEUTROPHILS % 79.9 % (36.0-66.0); RED BLOOD COUNT 2.97 10^6/uL (4.00-5.40); WHITE BLOOD COUNT 6.3 10^3/uL (4.0-10.0)
[2022-06-25 06:35] LABS: PLATELET COUNT, AUTOMATED 52 10^3/uL (150-450)
[2022-06-25 06:37] LABS: ALBUMIN 2.5 G/DL (3.2-5.2); BILIRUBIN,TOTAL 0.4 MG/DL (0.3-1.2); CALCIUM LEVEL 7.9 MG/DL (8.3-10.6); CREATININE FOR GFR 1.27 MG/DL (0.55-1.30); MAGNESIUM LEVEL 1.4 MG/DL (1.8-2.4); POTASSIUM SERUM 3.6 MMOL/L (3.5-5.1); TOTAL PROTEIN 5.5 G/DL (5.7-8.2)
[2022-06-25] MEDS: INSULIN LISPRO (NovoLOG) PER UNIT SC SCH ×4 (07:30→21:00)
[2022-06-25] MEDS: MIDODRINE 2.5 MG TAB PO SCH ×3 (08:00→15:44)
[2022-06-25] MEDS: HEPARIN SOD (PORCINE) 5000UNITS/ML 1ML VIAL/SYRINGE SQ SCH (09:00)
[2022-06-25] MEDS: SODIUM CHLORIDE 0.9% INJ 10 ML SYR IV SCH (09:00)
[2022-06-25] MEDS: oxyCODONE 20MG CR TAB PO SCH ×2 (09:00→22:29)
[2022-06-25] MEDS: MAGNESIUM OXIDE 400MG TAB (MAG-OX) PO SCH ×2 (10:00→22:30)
[2022-06-25] MEDS: GABAPENTIN 100 MG CAP PO SCH ×3 (10:01→22:30)
[2022-06-25] MEDS: METAMUCIL (PSYLLIUM) PACKET PO SCH ×2 (10:01→22:31)
[2022-06-25] MEDS: DULoxetine 30MG CAPSULE (CYMBALTA) PO SCH (10:01)
[2022-06-25] MEDS: SENOKOT S TAB PO SCH ×2 (10:01→22:29)
[2022-06-25] MEDS: LEVEMIR (INSULIN DETEMIR) 1 UNITS/0.01ML SC SCH (10:02)
[2022-06-25] MEDS: ACETAMINOPHEN TAB 650MG DOSE (2X325MG) PO PRN ×2 (10:05→17:23)
[2022-06-25] MEDS ORDERED: POTASSIUM CHLORIDE 10MEQ SR TABLET PO ONE (10:40)
[2022-06-25] MEDS: SODIUM CHLORIDE 0.9% INJ 10 ML SYR IV PRN ×2 (11:50→14:27)
[2022-06-25] MEDS: MAG SULF 1GM/100ML (MAG RUN) 1 GM in IV 1 EA IV SCH ×2 (11:51→12:58)
[2022-06-25] MEDS ORDERED: TOLVAPTAN 7.5 MG HALF-TAB PO ONE (12:00)
[2022-06-25 14:00] VITALS: BP 158/102
[2022-06-25] MEDS: oxyCODONE 5MG TAB PO PRN (14:32)
[2022-06-25] MEDS: BENZOCAINE 20% HEMORRHOIDAL OINTMENT 28GM TUBE TOP PRN ×2 (15:45→22:31)
[2022-06-25 20:00] VITALS: BP 137/53
[2022-06-25] MEDS: SIMVASTATIN 20 MG TAB PO SCH (22:32)
[2022-06-26] MEDS: oxyCODONE 5MG TAB PO PRN ×2 (02:41→10:32)
[2022-06-26] MEDS: LEVOTHYROXINE 25MCG TABLET (0.025MG) PO SCH (05:09)
[2022-06-26] MEDS: POLYVINYL ALCOHOL OPHTH SOLN 15ML (LIQUITEARS) OU PRN (05:10)
[2022-06-26] MEDS: LEVOTHYROXINE 150MCG TABLET (0.15MG) PO SCH (05:13)
[2022-06-26 06:00] VITALS: BP 134/49
[2022-06-26 08:06] LABS: BASO % 0.8 % (0.0-1.0); EOS # 0.4 10^3/uL (0.0-0.5); EOS % 8.2 % (0.0-3.0); HEMOGLOBIN 8.5 g/dl (12.0-15.5); LYMPH # 0.3 10^3/uL (1.5-5.0); LYMPH % 5.3 % (24.0-44.0); MEAN CORPUSCULAR HEMOGLOBIN 30.7 pg (27.0-33.0); MEAN CORPUSCULAR HGB CONC 32.7 g/dl (32.0-36.5); MEAN CORPUSCULAR VOLUME 93.9 fl (80.0-96.0); MONO # 0.5 10^3/uL (0.0-0.8); NEUTROPHILS # 3.7 10^3/uL (1.5-8.5); NEUTROPHILS % 75.1 % (36.0-66.0); PLATELET COUNT, AUTOMATED 33 10^3/uL (150-450); RED BLOOD COUNT 2.77 10^6/uL (4.00-5.40); WHITE BLOOD COUNT 4.9 10^3/uL (4.0-10.0)
[2022-06-26 08:54] LABS: ALBUMIN 2.3 G/DL (3.2-5.2); BILIRUBIN,TOTAL 0.3 MG/DL (0.3-1.2); CALCIUM LEVEL 8.4 MG/DL (8.3-10.6); CREATININE FOR GFR 1.15 MG/DL (0.55-1.30); GLOMERULAR FILTRATION RATE 49.4 (>39); POTASSIUM SERUM 3.5 MMOL/L (3.5-5.1); TOTAL PROTEIN 5.3 G/DL (5.7-8.2)
[2022-06-26] MEDS ORDERED: MAG SULF 1GM/100ML (MAG RUN) 1 GM in IV 1 EA IV ONE (09:00)
[2022-06-26 09:05] LABS: MAGNESIUM LEVEL 1.7 MG/DL (1.8-2.4)
[2022-06-26] MEDS: SENOKOT S TAB PO SCH ×2 (09:08→21:00)
[2022-06-26] MEDS: MAGNESIUM OXIDE 400MG TAB (MAG-OX) PO SCH ×2 (09:08→22:15)
[2022-06-26] MEDS: LEVEMIR (INSULIN DETEMIR) 1 UNITS/0.01ML SC SCH (09:09)
[2022-06-26] MEDS: oxyCODONE 20MG CR TAB PO SCH ×2 (09:09→22:14)
[2022-06-26] MEDS: DULoxetine 30MG CAPSULE (CYMBALTA) PO SCH (09:09)
[2022-06-26] MEDS: GABAPENTIN 100 MG CAP PO SCH ×3 (09:09→22:15)
[2022-06-26] MEDS: INSULIN LISPRO (NovoLOG) PER UNIT SC SCH ×4 (09:10→21:00)
[2022-06-26] MEDS: MIDODRINE 2.5 MG TAB PO SCH ×3 (09:10→16:00)
[2022-06-26] MEDS: METAMUCIL (PSYLLIUM) PACKET PO SCH ×2 (09:11→22:18)
[2022-06-26 14:00] VITALS: BP 156/51
[2022-06-26] MEDS: POTASSIUM CHLORIDE 10MEQ SR TABLET PO SCH ×2 (16:57→22:16)
[2022-06-26 22:00] VITALS: BP 134/53
[2022-06-26] MEDS: SIMVASTATIN 20 MG TAB PO SCH (22:15)
[2022-06-27] MEDS: LEVOTHYROXINE 150MCG TABLET (0.15MG) PO SCH (05:43)
[2022-06-27] MEDS: LEVOTHYROXINE 25MCG TABLET (0.025MG) PO SCH (05:44)
[2022-06-27 05:49] VITALS: BP 141/70
[2022-06-27 06:40] LABS: BASO # 0.1 10^3/uL (0.0-0.2); BASO % 0.9 % (0.0-1.0); EOS # 0.7 10^3/uL (0.0-0.5); EOS % 10.1 % (0.0-3.0); HEMATOCRIT 28.1 % (36.0-47.0); HEMOGLOBIN 9.2 g/dl (12.0-15.5); LYMPH # 0.4 10^3/uL (1.5-5.0); LYMPH % 5.6 % (24.0-44.0); MEAN CORPUSCULAR HEMOGLOBIN 30.4 pg (27.0-33.0); MEAN CORPUSCULAR HGB CONC 32.7 g/dl (32.0-36.5); MEAN CORPUSCULAR VOLUME 92.7 fl (80.0-96.0); MONO # 0.6 10^3/uL (0.0-0.8); MONO % 9.8 % (2.0-8.0); NEUTROPHILS # 4.7 10^3/uL (1.5-8.5); NEUTROPHILS % 73.1 % (36.0-66.0); RED BLOOD COUNT 3.03 10^6/uL (4.00-5.40); WHITE BLOOD COUNT 6.5 10^3/uL (4.0-10.0)
[2022-06-27 06:45] LABS: PLATELET COUNT, AUTOMATED 32 10^3/uL (150-450)
[2022-06-27 07:13] LABS: ALBUMIN 2.5 G/DL (3.2-5.2); BILIRUBIN,TOTAL 0.4 MG/DL (0.3-1.2); CALCIUM LEVEL 8.7 MG/DL (8.3-10.6); CREATININE FOR GFR 1.17 MG/DL (0.55-1.30); GLOMERULAR FILTRATION RATE 48.4 (>39); POTASSIUM SERUM 4.7 MMOL/L (3.5-5.1); TOTAL PROTEIN 5.7 G/DL (5.7-8.2)
[2022-06-27] MEDS: MIDODRINE 2.5 MG TAB PO SCH ×3 (08:00→16:00)
[2022-06-27] MEDS: SENOKOT S TAB PO SCH ×2 (08:26→21:19)
[2022-06-27] MEDS: MAGNESIUM OXIDE 400MG TAB (MAG-OX) PO SCH ×2 (08:26→21:20)
[2022-06-27] MEDS: METAMUCIL (PSYLLIUM) PACKET PO SCH ×2 (08:27→21:20)
[2022-06-27] MEDS: DULoxetine 30MG CAPSULE (CYMBALTA) PO SCH (08:27)
[2022-06-27] MEDS: INSULIN LISPRO (NovoLOG) PER UNIT SC SCH ×4 (08:27→21:00)
[2022-06-27] MEDS: GABAPENTIN 100 MG CAP PO SCH ×3 (08:27→21:20)
[2022-06-27] MEDS: LEVEMIR (INSULIN DETEMIR) 1 UNITS/0.01ML SC SCH (08:28)
[2022-06-27] MEDS: oxyCODONE 20MG CR TAB PO SCH ×2 (08:31→21:19)
[2022-06-27 08:35] VITALS: BP 117/55
[2022-06-27] MEDS: oxyCODONE 5MG TAB PO PRN (10:39)
[2022-06-27 14:00] VITALS: BP 117/52
[2022-06-27 20:55] VITALS: BP 114/50
[2022-06-27] MEDS: SIMVASTATIN 20 MG TAB PO SCH (21:19)
[2022-06-27] MEDS: POLYVINYL ALCOHOL OPHTH SOLN 15ML (LIQUITEARS) OU PRN (21:26)
[2022-06-28 05:30] VITALS: BP 118/48
[2022-06-28] MEDS: LEVOTHYROXINE 150MCG TABLET (0.15MG) PO SCH (05:48)
[2022-06-28] MEDS: LEVOTHYROXINE 25MCG TABLET (0.025MG) PO SCH (05:48)
[2022-06-28 06:13] LABS: BASO % 0.5 % (0.0-1.0); EOS # 0.5 10^3/uL (0.0-0.5); EOS % 9.1 % (0.0-3.0); HEMATOCRIT 28.1 % (36.0-47.0); LYMPH # 0.4 10^3/uL (1.5-5.0); LYMPH % 7.3 % (24.0-44.0); MEAN CORPUSCULAR HEMOGLOBIN 29.8 pg (27.0-33.0); MONO # 0.5 10^3/uL (0.0-0.8); MONO % 8.9 % (2.0-8.0); NEUTROPHILS # 4.1 10^3/uL (1.5-8.5); NEUTROPHILS % 73.5 % (36.0-66.0); RED BLOOD COUNT 3.02 10^6/uL (4.00-5.40); WHITE BLOOD COUNT 5.6 10^3/uL (4.0-10.0)
[2022-06-28 06:16] LABS: PLATELET COUNT, AUTOMATED 33 10^3/uL (150-450)
[2022-06-28 06:38] LABS: ALBUMIN 2.5 G/DL (3.2-5.2); BILIRUBIN,TOTAL 0.5 MG/DL (0.3-1.2); CALCIUM LEVEL 8.4 MG/DL (8.3-10.6); CREATININE FOR GFR 1.1 MG/DL (0.55-1.30); MAGNESIUM LEVEL 2.1 MG/DL (1.8-2.4); POTASSIUM SERUM 4.5 MMOL/L (3.5-5.1); TOTAL PROTEIN 5.6 G/DL (5.7-8.2)
[2022-06-28 08:00] VITALS: BP 118/47
[2022-06-28] MEDS: SENOKOT S TAB PO SCH ×2 (08:20→20:51)
[2022-06-28] MEDS: GABAPENTIN 100 MG CAP PO SCH ×3 (08:21→22:05)
[2022-06-28] MEDS: DULoxetine 30MG CAPSULE (CYMBALTA) PO SCH (08:21)
[2022-06-28] MEDS: oxyCODONE 20MG CR TAB PO SCH ×2 (08:23→20:52)
[2022-06-28] MEDS: MAGNESIUM OXIDE 400MG TAB (MAG-OX) PO SCH ×2 (08:24→20:51)
[2022-06-28] MEDS: MIDODRINE 2.5 MG TAB PO SCH ×3 (08:24→15:28)
[2022-06-28] MEDS: METAMUCIL (PSYLLIUM) PACKET PO SCH ×2 (08:25→21:00)
[2022-06-28] MEDS: LEVEMIR (INSULIN DETEMIR) 1 UNITS/0.01ML SC SCH (08:26)
[2022-06-28] MEDS: INSULIN LISPRO (NovoLOG) PER UNIT SC SCH ×4 (08:27→21:00)
[2022-06-28 12:15] VITALS: BP 127/47
[2022-06-28] MEDS: FUROSEMIDE 40 MG TAB PO SCH (12:26)
[2022-06-28 15:00] VITALS: BP 117/39
[2022-06-28] MEDS: SIMVASTATIN 20 MG TAB PO SCH (20:52)
[2022-06-28 21:00] VITALS: BP 125/47
[2022-06-28] MEDS ORDERED: FONDAPARINUX SODIUM 2.5 MG/0.5 ML SYRINGE SC SCH (21:00)
[2022-06-28] MEDS: oxyCODONE 5MG TAB PO PRN (23:05)
[2022-06-29] MEDS: BENZOCAINE 20% HEMORRHOIDAL OINTMENT 28GM TUBE TOP PRN (05:10)
[2022-06-29] MEDS: LEVOTHYROXINE 150MCG TABLET (0.15MG) PO SCH (05:19)
[2022-06-29] MEDS: LEVOTHYROXINE 25MCG TABLET (0.025MG) PO SCH (05:19)
[2022-06-29 06:00] VITALS: BP 141/63
[2022-06-29] MEDS: MIDODRINE 2.5 MG TAB PO SCH ×3 (08:00→15:34)
[2022-06-29] MEDS: oxyCODONE 20MG CR TAB PO SCH ×2 (08:57→21:52)
[2022-06-29] MEDS: LEVEMIR (INSULIN DETEMIR) 1 UNITS/0.01ML SC SCH (08:58)
[2022-06-29] MEDS: INSULIN LISPRO (NovoLOG) PER UNIT SC SCH ×4 (08:58→21:00)
[2022-06-29] MEDS: SENOKOT S TAB PO SCH ×2 (08:59→21:50)
[2022-06-29] MEDS: MAGNESIUM OXIDE 400MG TAB (MAG-OX) PO SCH ×2 (08:59→21:49)
[2022-06-29] MEDS: DULoxetine 30MG CAPSULE (CYMBALTA) PO SCH (09:00)
[2022-06-29] MEDS: METAMUCIL (PSYLLIUM) PACKET PO SCH ×2 (09:00→21:49)
[2022-06-29] MEDS: GABAPENTIN 100 MG CAP PO SCH ×3 (09:00→21:49)
[2022-06-29] MEDS: FUROSEMIDE 40 MG TAB PO SCH (09:00)
[2022-06-29] MEDS: oxyCODONE 5MG TAB PO PRN (13:40)
[2022-06-29 14:00] VITALS: BP 137/57
[2022-06-29 20:00] VITALS: BP 141/49
[2022-06-29] MEDS: SIMVASTATIN 20 MG TAB PO SCH (21:50)
[2022-06-29] MEDS: SODIUM CHLORIDE 0.9% INJ 10 ML SYR IV PRN (21:52)
[2022-06-29] MEDS: METOCLOPRAMIDE INJ 10MG/2ML VIAL IV PRN (21:52)
[2022-06-30 06:00] VITALS: BP 143/55
[2022-06-30] MEDS ORDERED: FONDAPARINUX SODIUM 2.5 MG/0.5 ML SYRINGE SC ONE (06:00)
[2022-06-30] MEDS: LEVOTHYROXINE 25MCG TABLET (0.025MG) PO SCH (06:38)
[2022-06-30] MEDS: LEVOTHYROXINE 150MCG TABLET (0.15MG) PO SCH (06:38)
[2022-06-30] MEDS: oxyCODONE 5MG TAB PO PRN (06:40)
[2022-06-30 07:01] LABS: HEMATOCRIT 26.5 % (36.0-47.0); HEMOGLOBIN 8.7 g/dl (12.0-15.5); MEAN CORPUSCULAR HEMOGLOBIN 30.9 pg (27.0-33.0); MEAN CORPUSCULAR HGB CONC 32.8 g/dl (32.0-36.5); RED BLOOD COUNT 2.82 10^6/uL (4.00-5.40); WHITE BLOOD COUNT 5.6 10^3/uL (4.0-10.0)
[2022-06-30 07:02] LABS: PLATELET COUNT, AUTOMATED 44 10^3/uL (150-450)
[2022-06-30 07:20] LABS: ALBUMIN 2.5 G/DL (3.2-5.2); BILIRUBIN,TOTAL 0.4 MG/DL (0.3-1.2); CALCIUM LEVEL 8.3 MG/DL (8.3-10.6); CREATININE FOR GFR 1.25 MG/DL (0.55-1.30); GLOMERULAR FILTRATION RATE 44.8 (>39); POTASSIUM SERUM 4.1 MMOL/L (3.5-5.1); TOTAL PROTEIN 5.6 G/DL (5.7-8.2)
[2022-06-30 08:00] VITALS: BP 140/54
[2022-06-30 09:19] LABS: INR 1.11; PROTHROMBIN TIME 14.5 SECONDS (12.5-14.5)
[2022-06-30 09:20] LABS: PARTIAL THROMBOPLASTIN TIME 30.8 SECONDS (24.8-34.2)
[2022-06-30] MEDS: METAMUCIL (PSYLLIUM) PACKET PO SCH ×2 (09:29→21:00)
[2022-06-30] MEDS: DULoxetine 30MG CAPSULE (CYMBALTA) PO SCH (09:30)
[2022-06-30] MEDS: MAGNESIUM OXIDE 400MG TAB (MAG-OX) PO SCH ×2 (09:30→21:55)
[2022-06-30] MEDS: SENOKOT S TAB PO SCH ×2 (09:30→21:00)
[2022-06-30] MEDS: oxyCODONE 20MG CR TAB PO SCH ×2 (09:30→21:58)
[2022-06-30] MEDS: FUROSEMIDE 40 MG TAB PO SCH (09:31)
[2022-06-30] MEDS: GABAPENTIN 100 MG CAP PO SCH ×3 (09:31→21:56)
[2022-06-30] MEDS: INSULIN LISPRO (NovoLOG) PER UNIT SC SCH ×4 (09:32→21:00)
[2022-06-30] MEDS: LEVEMIR (INSULIN DETEMIR) 1 UNITS/0.01ML SC SCH (09:32)
[2022-06-30] MEDS: SODIUM CHLORIDE 0.9% INJ 10 ML SYR IV SCH (09:33)
[2022-06-30] MEDS: POLYVINYL ALCOHOL OPHTH SOLN 15ML (LIQUITEARS) OU PRN (09:41)
[2022-06-30 13:18] VITALS: BP 140/56
[2022-06-30 14:00] VITALS: BP 125/48
[2022-06-30] MEDS: SIMETHICONE 80MG CHEW TAB PO PRN (21:56)
[2022-06-30] MEDS: SIMVASTATIN 20 MG TAB PO SCH (21:56)
[2022-06-30 22:00] VITALS: BP 128/44
[2022-07-01] VITALS (8 sets, daily range): BP systolic 125–155; BP diastolic 44–89
[2022-07-01] MEDS: LEVOTHYROXINE 150MCG TABLET (0.15MG) PO SCH (06:03)
[2022-07-01] MEDS: LEVOTHYROXINE 25MCG TABLET (0.025MG) PO SCH (06:03)
[2022-07-01] MEDS: oxyCODONE 5MG TAB PO PRN (06:04)
[2022-07-01 07:16] LABS: HEMOGLOBIN 8.1 g/dl (12.0-15.5); MEAN CORPUSCULAR HEMOGLOBIN 30.1 pg (27.0-33.0); MEAN CORPUSCULAR HGB CONC 32.4 g/dl (32.0-36.5); MEAN CORPUSCULAR VOLUME 92.9 fl (80.0-96.0); RED BLOOD COUNT 2.69 10^6/uL (4.00-5.40); WHITE BLOOD COUNT 6.3 10^3/uL (4.0-10.0)
[2022-07-01 07:17] LABS: PLATELET COUNT, AUTOMATED 46 10^3/uL (150-450)
[2022-07-01 07:45] LABS: ALBUMIN 2.4 G/DL (3.2-5.2); BILIRUBIN,TOTAL 0.4 MG/DL (0.3-1.2); CALCIUM LEVEL 7.9 MG/DL (8.3-10.6); CREATININE FOR GFR 1.31 MG/DL (0.55-1.30); GLOMERULAR FILTRATION RATE 42.5 (>39); POTASSIUM SERUM 3.8 MMOL/L (3.5-5.1); TOTAL PROTEIN 5.3 G/DL (5.7-8.2)
[2022-07-01] MEDS: METAMUCIL (PSYLLIUM) PACKET PO SCH ×2 (08:10→21:11)
[2022-07-01] MEDS: SENOKOT S TAB PO SCH ×2 (08:10→21:00)
[2022-07-01] MEDS: LEVEMIR (INSULIN DETEMIR) 1 UNITS/0.01ML SC SCH (08:26)
[2022-07-01] MEDS: INSULIN LISPRO (NovoLOG) PER UNIT SC SCH ×4 (08:27→21:00)
[2022-07-01] MEDS: FERROUS SULFATE 325MG TAB PO SCH ×2 (08:28→21:13)
[2022-07-01] MEDS: FONDAPARINUX SODIUM 2.5 MG/0.5 ML SYRINGE SC SCH (08:28)
[2022-07-01] MEDS: MAGNESIUM OXIDE 400MG TAB (MAG-OX) PO SCH ×2 (08:28→21:13)
[2022-07-01] MEDS: oxyCODONE 20MG CR TAB PO SCH ×2 (08:28→21:15)
[2022-07-01] MEDS: GABAPENTIN 100 MG CAP PO SCH ×3 (08:29→21:13)
[2022-07-01] MEDS: FUROSEMIDE 40 MG TAB PO SCH (08:29)
[2022-07-01] MEDS: SODIUM CHLORIDE 0.9% INJ 10 ML SYR IV SCH (08:29)
[2022-07-01] MEDS: DULoxetine 30MG CAPSULE (CYMBALTA) PO SCH (08:29)
[2022-07-01 09:32] LABS: PERCENT SATURATION 13.8 % (13.2-45.0)
[2022-07-01 09:35] LABS: FERRITIN 274.4 NG/ML (7.3-270.7)
[2022-07-01 20:13] LABS: HEMATOCRIT 30.1 % (36.0-47.0); MEAN CORPUSCULAR HEMOGLOBIN 30.6 pg (27.0-33.0); MEAN CORPUSCULAR HGB CONC 33.6 g/dl (32.0-36.5); MEAN CORPUSCULAR VOLUME 91.2 fl (80.0-96.0); WHITE BLOOD COUNT 6.2 10^3/uL (4.0-10.0)
[2022-07-01 20:28] LABS: HEMOGLOBIN 10.1 g/dl (12.0-15.5); PLATELET COUNT, AUTOMATED 52 10^3/uL (150-450)
[2022-07-01] MEDS: SIMVASTATIN 20 MG TAB PO SCH (21:13)
[2022-07-02] MEDS: oxyBUTYnin 5 MG TAB PO PRN (05:47)
[2022-07-02] MEDS: LEVOTHYROXINE 25MCG TABLET (0.025MG) PO SCH (05:47)
[2022-07-02] MEDS: LEVOTHYROXINE 150MCG TABLET (0.15MG) PO SCH (05:47)
[2022-07-02 06:12] LABS: HEMATOCRIT 30.4 % (36.0-47.0); HEMOGLOBIN 9.9 g/dl (12.0-15.5); MEAN CORPUSCULAR HEMOGLOBIN 29.7 pg (27.0-33.0); MEAN CORPUSCULAR HGB CONC 32.6 g/dl (32.0-36.5); MEAN CORPUSCULAR VOLUME 91.3 fl (80.0-96.0); RED BLOOD COUNT 3.33 10^6/uL (4.00-5.40); WHITE BLOOD COUNT 5.9 10^3/uL (4.0-10.0)
[2022-07-02 06:21] LABS: PLATELET COUNT, AUTOMATED 49 10^3/uL (150-450)
[2022-07-02 06:47] LABS: ALBUMIN 2.3 G/DL (3.2-5.2); BILIRUBIN,TOTAL 0.6 MG/DL (0.3-1.2); CALCIUM LEVEL 8.4 MG/DL (8.3-10.6); CREATININE FOR GFR 1.17 MG/DL (0.55-1.30); GLOMERULAR FILTRATION RATE 48.4 (>39); POTASSIUM SERUM 3.9 MMOL/L (3.5-5.1); TOTAL PROTEIN 5.4 G/DL (5.7-8.2)
[2022-07-02] MEDS: SODIUM CHLORIDE 0.9% INJ 10 ML SYR IV SCH (09:00)
[2022-07-02] MEDS: DULoxetine 30MG CAPSULE (CYMBALTA) PO SCH (09:41)
[2022-07-02] MEDS: MAGNESIUM OXIDE 400MG TAB (MAG-OX) PO SCH ×2 (09:41→21:52)
[2022-07-02] MEDS: SENOKOT S TAB PO SCH ×2 (09:42→21:00)
[2022-07-02] MEDS: FERROUS SULFATE 325MG TAB PO SCH ×2 (09:42→21:53)
[2022-07-02] MEDS: GABAPENTIN 100 MG CAP PO SCH ×3 (09:42→21:52)
[2022-07-02] MEDS: FUROSEMIDE 40 MG TAB PO SCH (09:42)
[2022-07-02] MEDS: oxyCODONE 20MG CR TAB PO SCH ×2 (09:43→21:52)
[2022-07-02] MEDS: INSULIN LISPRO (NovoLOG) PER UNIT SC SCH ×4 (09:44→21:00)
[2022-07-02] MEDS: LEVEMIR (INSULIN DETEMIR) 1 UNITS/0.01ML SC SCH (09:45)
[2022-07-02] MEDS: FONDAPARINUX SODIUM 2.5 MG/0.5 ML SYRINGE SC SCH (09:46)
[2022-07-02] MEDS: METAMUCIL (PSYLLIUM) PACKET PO SCH ×2 (10:26→21:53)
[2022-07-02] MEDS: oxyCODONE 5MG TAB PO PRN ×2 (12:10→17:47)
[2022-07-02 14:00] VITALS: BP 130/51
[2022-07-02 20:34] VITALS: BP 123/53
[2022-07-02] MEDS: SIMVASTATIN 20 MG TAB PO SCH (21:53)
[2022-07-03] MEDS: POLYVINYL ALCOHOL OPHTH SOLN 15ML (LIQUITEARS) OU PRN (05:16)
[2022-07-03] MEDS: LEVOTHYROXINE 25MCG TABLET (0.025MG) PO SCH (05:16)
[2022-07-03] MEDS: LEVOTHYROXINE 150MCG TABLET (0.15MG) PO SCH (05:16)
[2022-07-03 06:30] LABS: HEMATOCRIT 29.7 % (36.0-47.0); HEMOGLOBIN 9.7 g/dl (12.0-15.5); MEAN CORPUSCULAR HEMOGLOBIN 29.9 pg (27.0-33.0); MEAN CORPUSCULAR HGB CONC 32.7 g/dl (32.0-36.5); MEAN CORPUSCULAR VOLUME 91.7 fl (80.0-96.0); RED BLOOD COUNT 3.24 10^6/uL (4.00-5.40)
[2022-07-03 06:31] VITALS: BP 135/68
[2022-07-03 06:31] LABS: PLATELET COUNT, AUTOMATED 51 10^3/uL (150-450)
[2022-07-03 06:58] LABS: ALBUMIN 2.4 G/DL (3.2-5.2); BILIRUBIN,TOTAL 0.4 MG/DL (0.3-1.2); CALCIUM LEVEL 8.4 MG/DL (8.3-10.6); CREATININE FOR GFR 1.25 MG/DL (0.55-1.30); GLOMERULAR FILTRATION RATE 44.8 (>39); POTASSIUM SERUM 3.7 MMOL/L (3.5-5.1); TOTAL PROTEIN 5.6 G/DL (5.7-8.2)
[2022-07-03] MEDS: GABAPENTIN 100 MG CAP PO SCH ×3 (08:40→21:37)
[2022-07-03] MEDS: FERROUS SULFATE 325MG TAB PO SCH ×2 (08:40→21:37)
[2022-07-03] MEDS: SENOKOT S TAB PO SCH ×2 (08:40→21:00)
[2022-07-03] MEDS: METAMUCIL (PSYLLIUM) PACKET PO SCH ×2 (08:40→21:37)
[2022-07-03] MEDS: DULoxetine 30MG CAPSULE (CYMBALTA) PO SCH (08:40)
[2022-07-03] MEDS: MAGNESIUM OXIDE 400MG TAB (MAG-OX) PO SCH ×2 (08:40→21:38)
[2022-07-03] MEDS: FUROSEMIDE 40 MG TAB PO SCH (08:40)
[2022-07-03] MEDS: INSULIN LISPRO (NovoLOG) PER UNIT SC SCH ×4 (08:41→21:00)
[2022-07-03] MEDS: LEVEMIR (INSULIN DETEMIR) 1 UNITS/0.01ML SC SCH (08:41)
[2022-07-03] MEDS: FONDAPARINUX SODIUM 2.5 MG/0.5 ML SYRINGE SC SCH (08:42)
[2022-07-03] MEDS: oxyCODONE 20MG CR TAB PO SCH ×2 (08:44→21:44)
[2022-07-03] MEDS: SODIUM CHLORIDE 0.9% INJ 10 ML SYR IV SCH (08:45)
[2022-07-03] MEDS: BENZOCAINE 20% HEMORRHOIDAL OINTMENT 28GM TUBE TOP PRN (08:45)
[2022-07-03] MEDS: oxyCODONE 5MG TAB PO PRN ×2 (08:55→16:04)
[2022-07-03 14:00] VITALS: BP 131/64
[2022-07-03] MEDS ORDERED: TOLVAPTAN 7.5 MG HALF-TAB PO ONE (14:00)
[2022-07-03 20:00] VITALS: BP 151/60
[2022-07-03] MEDS: SIMVASTATIN 20 MG TAB PO SCH (21:37)
[2022-07-04] MEDS: oxyCODONE 5MG TAB PO PRN ×4 (02:20→18:38)
[2022-07-04 05:21] VITALS: BP 140/55
[2022-07-04] MEDS: LEVOTHYROXINE 150MCG TABLET (0.15MG) PO SCH (05:49)
[2022-07-04] MEDS: LEVOTHYROXINE 25MCG TABLET (0.025MG) PO SCH (05:49)
[2022-07-04 06:15] LABS: BASO % 0.3 % (0.0-1.0); EOS # 0.9 10^3/uL (0.0-0.5); EOS % 13.9 % (0.0-3.0); HEMATOCRIT 28.4 % (36.0-47.0); HEMOGLOBIN 9.3 g/dl (12.0-15.5); LYMPH # 0.3 10^3/uL (1.5-5.0); LYMPH % 4.7 % (24.0-44.0); MEAN CORPUSCULAR HGB CONC 32.7 g/dl (32.0-36.5); MEAN CORPUSCULAR VOLUME 91.6 fl (80.0-96.0); MONO # 0.5 10^3/uL (0.0-0.8); MONO % 8.3 % (2.0-8.0); NEUTROPHILS # 4.6 10^3/uL (1.5-8.5); NEUTROPHILS % 72.2 % (36.0-66.0); WHITE BLOOD COUNT 6.4 10^3/uL (4.0-10.0)
[2022-07-04 06:16] LABS: PLATELET COUNT, AUTOMATED 49 10^3/uL (150-450)
[2022-07-04 06:43] LABS: ALBUMIN 2.3 G/DL (3.2-5.2); BILIRUBIN,TOTAL 0.3 MG/DL (0.3-1.2); CALCIUM LEVEL 8.2 MG/DL (8.3-10.6); CREATININE FOR GFR 1.15 MG/DL (0.55-1.30); GLOMERULAR FILTRATION RATE 49.4 (>39); POTASSIUM SERUM 3.7 MMOL/L (3.5-5.1); TOTAL PROTEIN 5.4 G/DL (5.7-8.2)
[2022-07-04] MEDS: INSULIN LISPRO (NovoLOG) PER UNIT SC SCH ×4 (08:27→21:00)
[2022-07-04] MEDS: FERROUS SULFATE 325MG TAB PO SCH ×2 (08:29→21:55)
[2022-07-04] MEDS: METAMUCIL (PSYLLIUM) PACKET PO SCH ×2 (08:29→21:55)
[2022-07-04] MEDS: GABAPENTIN 100 MG CAP PO SCH ×3 (08:30→21:54)
[2022-07-04] MEDS: SENOKOT S TAB PO SCH ×2 (08:30→21:00)
[2022-07-04] MEDS: DULoxetine 30MG CAPSULE (CYMBALTA) PO SCH (08:30)
[2022-07-04] MEDS: oxyCODONE 20MG CR TAB PO SCH ×2 (08:30→21:55)
[2022-07-04] MEDS: MAGNESIUM OXIDE 400MG TAB (MAG-OX) PO SCH ×2 (08:30→21:54)
[2022-07-04] MEDS: SODIUM CHLORIDE 0.9% INJ 10 ML SYR IV SCH (08:31)
[2022-07-04] MEDS: FONDAPARINUX SODIUM 2.5 MG/0.5 ML SYRINGE SC SCH (08:44)
[2022-07-04] MEDS ORDERED: LEVEMIR (INSULIN DETEMIR) 1 UNITS/0.01ML SC SCH (09:00)
[2022-07-04] MEDS: BENZOCAINE 20% HEMORRHOIDAL OINTMENT 28GM TUBE TOP PRN ×2 (12:30→19:29)
[2022-07-04 14:00] VITALS: BP 153/71
[2022-07-04 21:00] VITALS: BP 132/49
[2022-07-04] MEDS ORDERED: FLUCONAZOLE 50MG TABLET PO ONE (21:00)
[2022-07-04] MEDS: SIMVASTATIN 20 MG TAB PO SCH (21:55)
[2022-07-05 05:00] VITALS: BP 106/43
[2022-07-05] MEDS: LEVOTHYROXINE 25MCG TABLET (0.025MG) PO SCH (06:08)
[2022-07-05] MEDS: LEVOTHYROXINE 150MCG TABLET (0.15MG) PO SCH (06:08)
[2022-07-05 06:11] LABS: BASO % 0.3 % (0.0-1.0); EOS # 0.8 10^3/uL (0.0-0.5); EOS % 13.2 % (0.0-3.0); HEMATOCRIT 27.4 % (36.0-47.0); HEMOGLOBIN 8.9 g/dl (12.0-15.5); LYMPH # 0.3 10^3/uL (1.5-5.0); LYMPH % 5.5 % (24.0-44.0); MEAN CORPUSCULAR HEMOGLOBIN 30.1 pg (27.0-33.0); MEAN CORPUSCULAR HGB CONC 32.5 g/dl (32.0-36.5); MEAN CORPUSCULAR VOLUME 92.6 fl (80.0-96.0); MONO # 0.4 10^3/uL (0.0-0.8); MONO % 7.6 % (2.0-8.0); NEUTROPHILS # 4.2 10^3/uL (1.5-8.5); NEUTROPHILS % 72.7 % (36.0-66.0); RED BLOOD COUNT 2.96 10^6/uL (4.00-5.40); WHITE BLOOD COUNT 5.8 10^3/uL (4.0-10.0)
[2022-07-05 06:12] LABS: PLATELET COUNT, AUTOMATED 58 10^3/uL (150-450)
[2022-07-05 06:39] LABS: ALBUMIN 2.3 G/DL (3.2-5.2); BILIRUBIN,TOTAL 0.3 MG/DL (0.3-1.2); CALCIUM LEVEL 8.3 MG/DL (8.3-10.6); CREATININE FOR GFR 1.19 MG/DL (0.55-1.30); GLOMERULAR FILTRATION RATE 47.5 (>39); POTASSIUM SERUM 3.8 MMOL/L (3.5-5.1); TOTAL PROTEIN 5.2 G/DL (5.7-8.2)
[2022-07-05] MEDS: METAMUCIL (PSYLLIUM) PACKET PO SCH ×2 (08:27→21:00)
[2022-07-05] MEDS: LEVEMIR (INSULIN DETEMIR) 1 UNITS/0.01ML SC SCH (08:27)
[2022-07-05] MEDS: oxyCODONE 20MG CR TAB PO SCH ×2 (08:28→21:31)
[2022-07-05] MEDS: SENOKOT S TAB PO SCH ×2 (08:28→21:00)
[2022-07-05] MEDS: INSULIN LISPRO (NovoLOG) PER UNIT SC SCH ×4 (08:28→21:00)
[2022-07-05] MEDS: APIXABAN 5 MG TAB (ELIQUIS) PO SCH ×2 (08:29→21:30)
[2022-07-05] MEDS: DULoxetine 20MG CAP (CYMBALTA) PO SCH (08:29)
[2022-07-05] MEDS: FERROUS SULFATE 325MG TAB PO SCH ×2 (08:29→21:31)
[2022-07-05] MEDS: MAGNESIUM OXIDE 400MG TAB (MAG-OX) PO SCH ×2 (08:29→21:31)
[2022-07-05] MEDS: GABAPENTIN 100 MG CAP PO SCH ×3 (08:29→21:31)
[2022-07-05] MEDS: SODIUM CHLORIDE 0.9% INJ 10 ML SYR IV SCH (08:30)
[2022-07-05] MEDS: oxyCODONE 5MG TAB PO PRN (14:02)
[2022-07-05] MEDS: METOCLOPRAMIDE INJ 10MG/2ML VIAL IV PRN (14:49)
[2022-07-05 16:04] LABS: GC DNA AMPLIFICATION NEGATIVE (NEGATIVE)
[2022-07-05] MEDS: SIMVASTATIN 20 MG TAB PO SCH (21:30)
[2022-07-06 05:00] VITALS: BP 131/58
[2022-07-06] MEDS: LEVOTHYROXINE 150MCG TABLET (0.15MG) PO SCH (05:28)
[2022-07-06] MEDS: LEVOTHYROXINE 25MCG TABLET (0.025MG) PO SCH (05:29)
[2022-07-06 06:12] LABS: BASO % 0.5 % (0.0-1.0); EOS # 0.8 10^3/uL (0.0-0.5); EOS % 13.1 % (0.0-3.0); HEMATOCRIT 28.4 % (36.0-47.0); HEMOGLOBIN 9.2 g/dl (12.0-15.5); LYMPH # 0.3 10^3/uL (1.5-5.0); LYMPH % 4.3 % (24.0-44.0); MEAN CORPUSCULAR HEMOGLOBIN 30.1 pg (27.0-33.0); MEAN CORPUSCULAR HGB CONC 32.4 g/dl (32.0-36.5); MEAN CORPUSCULAR VOLUME 92.8 fl (80.0-96.0); MONO # 0.5 10^3/uL (0.0-0.8); MONO % 7.9 % (2.0-8.0); NEUTROPHILS # 4.5 10^3/uL (1.5-8.5); NEUTROPHILS % 73.5 % (36.0-66.0); RED BLOOD COUNT 3.06 10^6/uL (4.00-5.40); WHITE BLOOD COUNT 6.1 10^3/uL (4.0-10.0)
[2022-07-06 06:13] LABS: PLATELET COUNT, AUTOMATED 67 10^3/uL (150-450)
[2022-07-06 06:40] LABS: ALBUMIN 2.3 G/DL (3.2-5.2); BILIRUBIN,TOTAL 0.3 MG/DL (0.3-1.2); CALCIUM LEVEL 8.6 MG/DL (8.3-10.6); CREATININE FOR GFR 1.16 MG/DL (0.55-1.30); GLOMERULAR FILTRATION RATE 48.9 (>39); TOTAL PROTEIN 5.2 G/DL (5.7-8.2)
[2022-07-06] MEDS: SENOKOT S TAB PO SCH ×2 (08:52→20:42)
[2022-07-06] MEDS: MAGNESIUM OXIDE 400MG TAB (MAG-OX) PO SCH ×2 (08:53→20:38)
[2022-07-06] MEDS: DULoxetine 20MG CAP (CYMBALTA) PO SCH (08:53)
[2022-07-06] MEDS: oxyCODONE 20MG CR TAB PO SCH ×2 (08:53→20:41)
[2022-07-06] MEDS: GABAPENTIN 100 MG CAP PO SCH ×3 (08:53→20:39)
[2022-07-06] MEDS: APIXABAN 5 MG TAB (ELIQUIS) PO SCH ×2 (08:54→20:39)
[2022-07-06] MEDS: FERROUS SULFATE 325MG TAB PO SCH ×2 (08:54→20:39)
[2022-07-06] MEDS: LEVEMIR (INSULIN DETEMIR) 1 UNITS/0.01ML SC SCH (08:54)
[2022-07-06] MEDS: INSULIN LISPRO (NovoLOG) PER UNIT SC SCH ×4 (08:54→20:31)
[2022-07-06] MEDS: METAMUCIL (PSYLLIUM) PACKET PO SCH ×2 (09:00→20:32)
[2022-07-06] MEDS: SODIUM CHLORIDE 0.9% INJ 10 ML SYR IV SCH (09:05)
[2022-07-06] MEDS: oxyCODONE 5MG TAB PO PRN ×2 (09:29→13:17)
[2022-07-06] MEDS: METOCLOPRAMIDE INJ 10MG/2ML VIAL IV PRN ×2 (14:16→20:58)
[2022-07-06] MEDS: SIMVASTATIN 20 MG TAB PO SCH (20:39)
[2022-07-06] MEDS: POLYVINYL ALCOHOL OPHTH SOLN 15ML (LIQUITEARS) OU PRN (20:47)
[2022-07-07] MEDS: LEVOTHYROXINE 25MCG TABLET (0.025MG) PO SCH (05:50)
[2022-07-07] MEDS: BENZOCAINE 20% HEMORRHOIDAL OINTMENT 28GM TUBE TOP PRN (05:50)
[2022-07-07] MEDS: LEVOTHYROXINE 150MCG TABLET (0.15MG) PO SCH (05:50)
[2022-07-07] MEDS: POLYVINYL ALCOHOL OPHTH SOLN 15ML (LIQUITEARS) OU PRN (05:55)
[2022-07-07 06:00] VITALS: BP 133/58
[2022-07-07 06:51] LABS: ALBUMIN 2.6 G/DL (3.2-5.2); BILIRUBIN,TOTAL 0.3 MG/DL (0.3-1.2); CALCIUM LEVEL 8.6 MG/DL (8.3-10.6); CREATININE FOR GFR 1.32 MG/DL (0.55-1.30); GLOMERULAR FILTRATION RATE 42.1 (>39); POTASSIUM SERUM 4.5 MMOL/L (3.5-5.1); TOTAL PROTEIN 5.8 G/DL (5.7-8.2)
[2022-07-07] MEDS: METAMUCIL (PSYLLIUM) PACKET PO SCH ×2 (08:16→21:06)
[2022-07-07] MEDS: oxyCODONE 20MG CR TAB PO SCH ×2 (08:17→21:05)
[2022-07-07] MEDS: GABAPENTIN 100 MG CAP PO SCH ×3 (08:17→21:03)
[2022-07-07] MEDS: FERROUS SULFATE 325MG TAB PO SCH ×2 (08:17→21:03)
[2022-07-07] MEDS: MAGNESIUM OXIDE 400MG TAB (MAG-OX) PO SCH ×2 (08:17→21:04)
[2022-07-07] MEDS: APIXABAN 5 MG TAB (ELIQUIS) PO SCH ×2 (08:18→21:04)
[2022-07-07] MEDS: LEVEMIR (INSULIN DETEMIR) 1 UNITS/0.01ML SC SCH (08:18)
[2022-07-07] MEDS: DULoxetine 20MG CAP (CYMBALTA) PO SCH (08:18)
[2022-07-07] MEDS: SODIUM CHLORIDE 0.9% INJ 10 ML SYR IV SCH (08:19)
[2022-07-07] MEDS: INSULIN LISPRO (NovoLOG) PER UNIT SC SCH ×4 (08:19→21:00)
[2022-07-07] MEDS: SENOKOT S TAB PO SCH ×2 (08:24→21:00)
[2022-07-07] MEDS: SIMETHICONE 80MG CHEW TAB PO PRN ×2 (12:07→18:13)
[2022-07-07] MEDS: oxyCODONE 5MG TAB PO PRN ×2 (13:31→18:14)
[2022-07-07] MEDS ORDERED: LR 500 ML IV ONE (16:30)
[2022-07-07] MEDS ORDERED: LR 500 ML IV SCH (16:30)
[2022-07-07] MEDS ORDERED: PINK BISMUTH SUSP 524MG/30ML ORAL SYRINGE PO PRN (16:40)
[2022-07-07] MEDS: METOCLOPRAMIDE INJ 10MG/2ML VIAL IV PRN (16:50)
[2022-07-07 17:32] LABS: HEMATOCRIT 30.5 % (36.0-47.0); MEAN CORPUSCULAR HEMOGLOBIN 30.1 pg (27.0-33.0); MEAN CORPUSCULAR HGB CONC 32.8 g/dl (32.0-36.5); MEAN CORPUSCULAR VOLUME 91.9 fl (80.0-96.0); RED BLOOD COUNT 3.32 10^6/uL (4.00-5.40); WHITE BLOOD COUNT 5.5 10^3/uL (4.0-10.0)
[2022-07-07 17:44] LABS: PLATELET COUNT, AUTOMATED 87 10^3/uL (150-450)
[2022-07-07] MEDS: SIMVASTATIN 20 MG TAB PO SCH (21:03)
[2022-07-08] MEDS: oxyCODONE 5MG TAB PO PRN ×2 (00:16→05:05)
[2022-07-08] MEDS: LEVOTHYROXINE 150MCG TABLET (0.15MG) PO SCH (05:05)
[2022-07-08] MEDS: BENZOCAINE 20% HEMORRHOIDAL OINTMENT 28GM TUBE TOP PRN (05:05)
[2022-07-08] MEDS: LEVOTHYROXINE 25MCG TABLET (0.025MG) PO SCH (05:05)
[2022-07-08] MEDS: POLYVINYL ALCOHOL OPHTH SOLN 15ML (LIQUITEARS) OU PRN (05:07)
[2022-07-08 05:31] VITALS: BP 154/67
[2022-07-08 06:23] LABS: HEMATOCRIT 29.8 % (36.0-47.0); HEMOGLOBIN 9.8 g/dl (12.0-15.5); MEAN CORPUSCULAR HEMOGLOBIN 30.6 pg (27.0-33.0); MEAN CORPUSCULAR HGB CONC 32.9 g/dl (32.0-36.5); MEAN CORPUSCULAR VOLUME 93.1 fl (80.0-96.0); WHITE BLOOD COUNT 5.7 10^3/uL (4.0-10.0)
[2022-07-08 06:26] LABS: PLATELET COUNT, AUTOMATED 99 10^3/uL (150-450)
[2022-07-08 06:44] LABS: CALCIUM LEVEL 8.4 MG/DL (8.3-10.6); CREATININE FOR GFR 1.25 MG/DL (0.55-1.30); GLOMERULAR FILTRATION RATE 44.8 (>39); POTASSIUM SERUM 3.8 MMOL/L (3.5-5.1)
[2022-07-08] MEDS: SENOKOT S TAB PO SCH ×2 (09:00→20:23)
[2022-07-08] MEDS: METAMUCIL (PSYLLIUM) PACKET PO SCH ×2 (09:00→20:23)
[2022-07-08] MEDS: METOCLOPRAMIDE INJ 10MG/2ML VIAL IV PRN ×2 (09:34→17:27)
[2022-07-08] MEDS: LEVEMIR (INSULIN DETEMIR) 1 UNITS/0.01ML SC SCH (09:38)
[2022-07-08] MEDS: INSULIN LISPRO (NovoLOG) PER UNIT SC SCH ×4 (09:38→21:00)
[2022-07-08] MEDS: FERROUS SULFATE 325MG TAB PO SCH ×2 (09:40→20:21)
[2022-07-08] MEDS: GABAPENTIN 100 MG CAP PO SCH ×3 (09:40→20:22)
[2022-07-08] MEDS: MAGNESIUM OXIDE 400MG TAB (MAG-OX) PO SCH ×2 (09:40→20:22)
[2022-07-08] MEDS: oxyCODONE 20MG CR TAB PO SCH ×2 (09:40→20:23)
[2022-07-08] MEDS: APIXABAN 5 MG TAB (ELIQUIS) PO SCH ×2 (09:41→20:21)
[2022-07-08] MEDS: DULoxetine 20MG CAP (CYMBALTA) PO SCH (09:41)
[2022-07-08] MEDS: SODIUM CHLORIDE 0.9% INJ 10 ML SYR IV SCH (09:45)
[2022-07-08] MEDS: SIMETHICONE 80MG CHEW TAB PO PRN ×2 (13:45→20:22)
[2022-07-08] MEDS: SIMVASTATIN 20 MG TAB PO SCH (20:22)
[2022-07-09] MEDS ORDERED: NYSTATIN 100,000 UNITS/GM TOPICAL PWD 15GM TOP PRN (04:30)
[2022-07-09 05:18] VITALS: BP 153/69
[2022-07-09] MEDS: LEVOTHYROXINE 150MCG TABLET (0.15MG) PO SCH (05:23)
[2022-07-09] MEDS: LEVOTHYROXINE 25MCG TABLET (0.025MG) PO SCH (05:24)
[2022-07-09] MEDS: METOCLOPRAMIDE INJ 10MG/2ML VIAL IV PRN ×2 (06:45→15:09)
[2022-07-09] MEDS: LEVEMIR (INSULIN DETEMIR) 1 UNITS/0.01ML SC SCH (08:55)
[2022-07-09] MEDS: INSULIN LISPRO (NovoLOG) PER UNIT SC SCH ×4 (08:56→20:43)
[2022-07-09] MEDS: SENOKOT S TAB PO SCH ×2 (08:56→20:53)
[2022-07-09] MEDS: METAMUCIL (PSYLLIUM) PACKET PO SCH ×2 (08:56→20:53)
[2022-07-09] MEDS: APIXABAN 5 MG TAB (ELIQUIS) PO SCH ×2 (08:57→20:52)
[2022-07-09] MEDS: MAGNESIUM OXIDE 400MG TAB (MAG-OX) PO SCH ×2 (08:57→20:51)
[2022-07-09] MEDS: oxyCODONE 20MG CR TAB PO SCH ×2 (08:57→20:52)
[2022-07-09] MEDS: FERROUS SULFATE 325MG TAB PO SCH ×2 (08:57→20:52)
[2022-07-09] MEDS: GABAPENTIN 100 MG CAP PO SCH ×3 (08:57→20:52)
[2022-07-09] MEDS: SODIUM CHLORIDE 0.9% INJ 10 ML SYR IV SCH (08:58)
[2022-07-09] MEDS: SODIUM CHLORIDE 0.9% INJ 10 ML SYR IV PRN (15:09)
[2022-07-09] MEDS: BENZOCAINE 20% HEMORRHOIDAL OINTMENT 28GM TUBE TOP PRN (20:44)
[2022-07-09] MEDS: SIMVASTATIN 20 MG TAB PO SCH (20:53)
[2022-07-10] MEDS: LEVOTHYROXINE 150MCG TABLET (0.15MG) PO SCH (05:32)
[2022-07-10] MEDS: LEVOTHYROXINE 25MCG TABLET (0.025MG) PO SCH (05:32)
[2022-07-10] MEDS: POLYVINYL ALCOHOL OPHTH SOLN 15ML (LIQUITEARS) OU PRN (05:34)
[2022-07-10 06:00] VITALS: BP 145/55
[2022-07-10] MEDS: INSULIN LISPRO (NovoLOG) PER UNIT SC SCH ×2 (07:30→12:39)
[2022-07-10] MEDS: SENOKOT S TAB PO SCH (07:52)
[2022-07-10] MEDS: METAMUCIL (PSYLLIUM) PACKET PO SCH (07:54)
[2022-07-10] MEDS: LEVEMIR (INSULIN DETEMIR) 1 UNITS/0.01ML SC SCH (08:02)
[2022-07-10] MEDS: APIXABAN 5 MG TAB (ELIQUIS) PO SCH (08:02)
[2022-07-10] MEDS: oxyCODONE 20MG CR TAB PO SCH (08:02)
[2022-07-10] MEDS: SODIUM CHLORIDE 0.9% INJ 10 ML SYR IV SCH (08:03)
[2022-07-10] MEDS: FERROUS SULFATE 325MG TAB PO SCH (08:03)
[2022-07-10] MEDS: MAGNESIUM OXIDE 400MG TAB (MAG-OX) PO SCH (08:03)
[2022-07-10] MEDS: GABAPENTIN 100 MG CAP PO SCH ×2 (08:03→16:43)
[2022-07-10] MEDS: METOCLOPRAMIDE INJ 10MG/2ML VIAL IV PRN (08:08)
[2022-07-10] MEDS: oxyCODONE 5MG TAB PO PRN ×2 (11:10→16:44)
[2022-07-10] MEDS ORDERED: MAGN400T2 PO (14:15)
[2022-07-10] MEDS ORDERED: OXYC-517 PO (14:15)
[2022-07-10] MEDS ORDERED: INSUDET SC (14:15)
[2022-07-10] MEDS ORDERED: OXYC20TA40 PO (14:15)
[2022-07-10] MEDS ORDERED: OXYB5TAB10 PO (14:15)
[2022-07-10] MEDS ORDERED: GABA-1171 PO (14:15)
[2022-07-10] MEDS ORDERED: NYST10006 TOP (14:15)
[2022-07-10] MEDS ORDERED: FERR1TAB8 PO (14:15)
[2022-07-10] MEDS ORDERED: ELIQ5TAB PO (14:15)
[2022-07-10] MEDS ORDERED: AMER20OI TOP (14:15)
[2022-07-10] MEDS ORDERED: INSUHUMDS SC ×2 (14:15)
[2022-07-10] MEDS ORDERED: LIDO4CR TOP (14:15)
[2022-07-10] MEDS ORDERED: ACET1TAB55 PO (14:15)
[2022-07-10] MEDS ORDERED: ARTIDRO4 OU (14:16)
[2022-07-10] MEDS ORDERED: MIRA1POW3 PO (14:16)
[2022-07-10] MEDS ORDERED: META1POW PO (14:16)
[2022-07-10] MEDS ORDERED: SENN-52 PO (14:16)
[2022-07-10 15:10] LABS: ALBUMIN 2.4 G/DL (3.2-5.2); BILIRUBIN,TOTAL 0.3 MG/DL (0.3-1.2); CALCIUM LEVEL 8.2 MG/DL (8.3-10.6); CREATININE FOR GFR 1.1 MG/DL (0.55-1.30); POTASSIUM SERUM 3.6 MMOL/L (3.5-5.1); TOTAL PROTEIN 5.4 G/DL (5.7-8.2)
[2022-07-12] MEDS ORDERED: APIXABAN 5 MG TAB (ELIQUIS) PO SCH (09:00)
== END 2022-07-10 16:49 | DRG 374 ==
LOC: M MSPAV 12:54 → M PCU 06-13 21:52 → M MSPAV 06-17 15:04
PROVIDERS: ADMIT Family Medicine; ATTEND Internal Medicine
PROC: 30233N1 Transfusion of Nonautologous Red Blood Cells into Peripheral Vein, Percutaneous Approach (ICD-10-PCS; principal; 2022-07-01)
DX: C21.0 Malignant neoplasm of anus, unspecified (principal); J96.01 Acute respiratory failure with hypoxia; D61.810 Antineoplastic chemotherapy induced pancytopenia; N17.9 Acute kidney failure, unspecified; Z68.43 Body mass index [BMI] 50.0-59.9, adult; K82.1 Hydrops of gallbladder; E87.3 Alkalosis; I82.431 Acute embolism and thrombosis of right popliteal vein; E46 Unspecified protein-calorie malnutrition; E87.1 Hypo-osmolality and hyponatremia; E03.9 Hypothyroidism, unspecified; I25.10 Atherosclerotic heart disease of native coronary artery without angina pectoris; Z78.9 Other specified health status; E66.01 Morbid (severe) obesity due to excess calories; Z93.3 Colostomy status; D70.1 Agranulocytosis secondary to cancer chemotherapy; E78.5 Hyperlipidemia, unspecified; K22.70 Barrett's esophagus without dysplasia; G89.3 Neoplasm related pain (acute) (chronic); E86.0 Dehydration; R19.7 Diarrhea, unspecified; E11.40 Type 2 diabetes mellitus with diabetic neuropathy, unspecified; G62.0 Drug-induced polyneuropathy; E11.22 Type 2 diabetes mellitus with diabetic chronic kidney disease; I12.9 Hypertensive chronic kidney disease with stage 1 through stage 4 chronic kidney disease, or unspecified chronic kidney disease; N18.30 Chronic kidney disease, stage 3 unspecified; E21.3 Hyperparathyroidism, unspecified; E87.70 Fluid overload, unspecified; E87.5 Hyperkalemia; I95.9 Hypotension, unspecified; Z66 Do not resuscitate; D75.829 Heparin-induced thrombocytopenia, unspecified; D50.9 Iron deficiency anemia, unspecified; N76.6 Ulceration of vulva; K59.00 Constipation, unspecified; Z92.3 Personal history of irradiation; Z92.21 Personal history of antineoplastic chemotherapy; Z88.0 Allergy status to penicillin; Z91.013 Allergy to seafood; Z91.018 Allergy to other foods; Z88.6 Allergy status to analgesic agent; Z79.899 Other long term (current) drug therapy; R33.9 Retention of urine, unspecified

== ENCOUNTER → 2022-07-06 | Outpatient (RCR) | payer OTHER ==
[~2022-07-06] MED LIST changes: -LIDO15SO PO; +LIDO15SO4 PO; +LIDVISCBTL SSP; +MM S100C PO; +ONDA4TAB6 PO; +[UNRECOGNIZED DRUG - SUPPLY] TOP
== END ==
LOC: M ONCR 06-06 10:59
PROVIDERS: ATTEND General Practice
DX: C21.0 Malignant neoplasm of anus, unspecified (principal)

== ENCOUNTER → 2022-07-25 | Outpatient (CLI) | payer OTHER ==
[~2022-07-25] MED LIST changes: +ACET1TAB55 PO; +AMER20OI TOP; +ARTIDRO4 OU; +ELIQ5TAB PO; +FERR1TAB8 PO; +GABA-1171 PO; +INSUDET SC; +INSUHUMDS SC; +LIDO15SO PO; -LIDO15SO4 PO; +LIDO4CR TOP; +MAGN400T2 PO; +META1POW PO; +MIRA1POW3 PO; +NYST10006 TOP; +OXYB5TAB10 PO; +OXYC20TA40 PO; +SENN-52 PO
== END ==
LOC: M ONCR 11:37
PROVIDERS: ATTEND General Practice
DX: C21.0 Malignant neoplasm of anus, unspecified (principal); L59.8 Other specified disorders of the skin and subcutaneous tissue related to radiation; Z92.3 Personal history of irradiation; Z93.3 Colostomy status

== ENCOUNTER → 2022-08-09 | Outpatient (CLI) | payer OTHER | LOC: M ONCR 09:31 | PROVIDERS: ATTEND General Practice | DX: L59.8 Other specified disorders of the skin and subcutaneous tissue related to radiation (principal); K59.00 Constipation, unspecified; N89.9 Noninflammatory disorder of vagina, unspecified; T83.84XA Pain due to genitourinary prosthetic devices, implants and grafts, initial encounter; Z92.21 Personal history of antineoplastic chemotherapy; Z92.3 Personal history of irradiation; Z93.3 Colostomy status; Z96.0 Presence of urogenital implants ==

== ENCOUNTER → 2022-10-12 | Outpatient (CLI) | payer OTHER, MEDICAID ==
[2022-10-12 16:38] LABS: BASO % 0.5 % (0.0-1.0); EOS # 0.1 10^3/uL (0.0-0.5); EOS % 0.6 % (0.0-3.0); HEMATOCRIT 38.8 % (36.0-47.0); HEMOGLOBIN 12.5 g/dl (12.0-15.5); LYMPH # 0.7 10^3/uL (1.5-5.0); LYMPH % 8.7 % (24.0-44.0); MEAN CORPUSCULAR HGB CONC 32.2 g/dl (32.0-36.5); MEAN CORPUSCULAR VOLUME 99.2 fl (80.0-96.0); MONO # 0.5 10^3/uL (0.0-0.8); MONO % 5.8 % (2.0-8.0); NEUTROPHILS # 6.7 10^3/uL (1.5-8.5); NEUTROPHILS % 83.9 % (36.0-66.0); PLATELET COUNT, AUTOMATED 187 10^3/uL (150-450); RED BLOOD COUNT 3.91 10^6/uL (4.00-5.40)
[2022-10-12 16:50] LABS: ALBUMIN 3.3 G/DL (3.2-5.2); ALKALINE PHOSPHATASE 66 U/L (46-116); ALT/SGPT 13 U/L (7.0-40); AST/SGOT 11 U/L (<34); BILIRUBIN,TOTAL 0.3 MG/DL (0.3-1.2); BLOOD UREA NITROGEN 16 MG/DL (9-23); CALCIUM LEVEL 10.1 MG/DL (8.3-10.6); CARBON DIOXIDE LEVEL 25 MMOL/L (20-31); CHLORIDE LEVEL 103 MMOL/L (98-107); CREATININE FOR GFR 0.83 MG/DL (0.55-1.30); GLOMERULAR FILTRATION RATE > 60.0 (>39); GLUCOSE, FASTING 163 MG/DL (74-106); POTASSIUM SERUM 3.8 MMOL/L (3.5-5.1); SODIUM LEVEL 140 MMOL/L (136-145); TOTAL PROTEIN 6.9 G/DL (5.7-8.2)
== END ==
LOC: M ONCR 14:24
PROVIDERS: ATTEND General Practice
DX: C21.0 Malignant neoplasm of anus, unspecified (principal); R32 Unspecified urinary incontinence; Z79.01 Long term (current) use of anticoagulants; Z79.84 Long term (current) use of oral hypoglycemic drugs; Z79.890 Hormone replacement therapy; Z79.899 Other long term (current) drug therapy; Z88.0 Allergy status to penicillin; Z88.5 Allergy status to narcotic agent; Z88.6 Allergy status to analgesic agent; Z88.8 Allergy status to other drugs, medicaments and biological substances; Z91.013 Allergy to seafood; Z91.018 Allergy to other foods; Z91.041 Radiographic dye allergy status; Z91.048 Other nonmedicinal substance allergy status; Z92.21 Personal history of antineoplastic chemotherapy; Z92.3 Personal history of irradiation; Z93.3 Colostomy status
CPT/HCPCS: 36415; 80053; 85025; G0463

== ENCOUNTER → 2022-12-13 | Outpatient (CLI) | payer OTHER ==
[2022-12-13 14:58] LABS: BASO % 0.3 % (0.0-1.0); EOS # 0.1 10^3/uL (0.0-0.5); EOS % 0.7 % (0.0-3.0); HEMATOCRIT 34.9 % (36.0-47.0); HEMOGLOBIN 11.2 g/dl (12.0-15.5); LYMPH # 0.7 10^3/uL (1.5-5.0); MEAN CORPUSCULAR HEMOGLOBIN 30.8 pg (27.0-33.0); MEAN CORPUSCULAR HGB CONC 32.1 g/dl (32.0-36.5); MEAN CORPUSCULAR VOLUME 95.9 fl (80.0-96.0); MONO # 0.5 10^3/uL (0.0-0.8); MONO % 4.3 % (2.0-8.0); NEUTROPHILS # 10.3 10^3/uL (1.5-8.5); NEUTROPHILS % 88.1 % (36.0-66.0); PLATELET COUNT, AUTOMATED 199 10^3/uL (150-450); RED BLOOD COUNT 3.64 10^6/uL (4.00-5.40); WHITE BLOOD COUNT 11.7 10^3/uL (4.0-10.0)
[2022-12-13 15:30] LABS: ALKALINE PHOSPHATASE 60 U/L (46-116); ALT/SGPT 20 U/L (7.0-40); AST/SGOT 9 U/L (<34); BILIRUBIN,TOTAL 0.4 MG/DL (0.3-1.2); BLOOD UREA NITROGEN 16 MG/DL (9-23); CALCIUM LEVEL 9.2 MG/DL (8.3-10.6); CARBON DIOXIDE LEVEL 28 MMOL/L (20-31); CHLORIDE LEVEL 99 MMOL/L (98-107); CREATININE FOR GFR 0.89 MG/DL (0.55-1.30); GLOMERULAR FILTRATION RATE > 60.0 (>39); GLUCOSE, FASTING 188 MG/DL (74-106); MAGNESIUM LEVEL 1.4 MG/DL (1.8-2.4); POTASSIUM SERUM 3.8 MMOL/L (3.5-5.1); SODIUM LEVEL 134 MMOL/L (136-145); TOTAL PROTEIN 6.7 G/DL (5.7-8.2)
== END ==
LOC: M PAL 14:30
PROVIDERS: ATTEND Nurse Practitioner Adult Health
DX: C21.0 Malignant neoplasm of anus, unspecified (principal); Z51.5 Encounter for palliative care; G89.3 Neoplasm related pain (acute) (chronic); R06.02 Shortness of breath; I10 Essential (primary) hypertension; E11.9 Type 2 diabetes mellitus without complications; M06.9 Rheumatoid arthritis, unspecified; R63.0 Anorexia; R11.10 Vomiting, unspecified; R32 Unspecified urinary incontinence; R54 Age-related physical debility; Z79.4 Long term (current) use of insulin; Z79.899 Other long term (current) drug therapy; Z79.891 Long term (current) use of opiate analgesic; Z88.5 Allergy status to narcotic agent; Z88.8 Allergy status to other drugs, medicaments and biological substances; Z88.0 Allergy status to penicillin; Z88.6 Allergy status to analgesic agent; Z93.3 Colostomy status; Z91.013 Allergy to seafood; Z91.018 Allergy to other foods; Z66 Do not resuscitate
CPT/HCPCS: 36591; 80053; 82378; 83735; 85025; G0463

== ENCOUNTER → 2022-12-13 | Outpatient (REF) | payer OTHER ==
[2022-12-13 14:59] LABS: BASO % 0.3 % (0.0-1.0); EOS # 0.1 10^3/uL (0.0-0.5); EOS % 0.7 % (0.0-3.0); HEMATOCRIT 34.7 % (36.0-47.0); HEMOGLOBIN 11.2 g/dl (12.0-15.5); LYMPH # 0.7 10^3/uL (1.5-5.0); LYMPH % 6.2 % (24.0-44.0); MEAN CORPUSCULAR HGB CONC 32.3 g/dl (32.0-36.5); MEAN CORPUSCULAR VOLUME 96.1 fl (80.0-96.0); MONO # 0.6 10^3/uL (0.0-0.8); NEUTROPHILS # 10.5 10^3/uL (1.5-8.5); NEUTROPHILS % 87.4 % (36.0-66.0); PLATELET COUNT, AUTOMATED 193 10^3/uL (150-450); RED BLOOD COUNT 3.61 10^6/uL (4.00-5.40)
[2022-12-13 15:30] LABS: CPK CREATINE PHOSPHOKINASE 32 U/L (34-145)
[2022-12-13 15:31] LABS: ALKALINE PHOSPHATASE 60 U/L (46-116); ALT/SGPT 18 U/L (7.0-40); AST/SGOT 9 U/L (<34); BILIRUBIN,TOTAL 0.4 MG/DL (0.3-1.2); BLOOD UREA NITROGEN 16 MG/DL (9-23); CALCIUM LEVEL 9.1 MG/DL (8.3-10.6); CARBON DIOXIDE LEVEL 27 MMOL/L (20-31); CHLORIDE LEVEL 102 MMOL/L (98-107); CHOLESTEROL LEVEL 125 MG/DL (<200); CHOLESTEROL RISK RATIO 3.18 (<5); CREATININE FOR GFR 0.89 MG/DL (0.55-1.30); GLOMERULAR FILTRATION RATE > 60.0 (>39); GLUCOSE, FASTING 190 MG/DL (74-106); HDL CHOLESTEROL 39.2 MG/DL (>40); IRON (FE) 23 UG/DL (50-170); LDL CHOLESTEROL 58.2 MG/DL (<100); NON-HDL-C 85.8 MG/DL; PERCENT SATURATION 9.9 % (13.2-45.0); POTASSIUM SERUM 3.8 MMOL/L (3.5-5.1); SODIUM LEVEL 134 MMOL/L (136-145); TOTAL IRON BINDING CAPACITY 233 UG/DL (250-425); TOTAL PROTEIN 6.5 G/DL (5.7-8.2); TRIGLYCERIDES LEVEL 138 MG/DL (<150)
[2022-12-13 15:32] LABS: FERRITIN 285.8 NG/ML (7.3-270.7); FOLATE 10.32 NG/ML (>5.4); THYROID STIMULATING HORMONE 16.187 uIU/ML (0.55-4.78)
[2022-12-13 15:33] LABS: FREE T4 1.07 NG/DL (0.89-1.76); VITAMIN B12 LEVEL 503 PG/ML (211-911)
== END ==
LOC: M LAB REF 14:31
PROVIDERS: ATTEND Family Medicine
DX: E78.2 Mixed hyperlipidemia (principal); R53.83 Other fatigue; D50.9 Iron deficiency anemia, unspecified

== ENCOUNTER → 2022-12-14 | Outpatient (CLI) | payer OTHER | LOC: M PLAIMG 11:07 | PROVIDERS: ATTEND General Practice | DX: C21.0 Malignant neoplasm of anus, unspecified (principal) ==

== ENCOUNTER → 2023-03-14 | Outpatient (CLI) | payer OTHER ==
[~2023-03-14] MED LIST changes: +LACT10SO3 PO; -OXYB5TAB10 PO; +OXYB5TAB11 PO; +OXYC-141 PO
== END ==
LOC: M ONCR 15:18
PROVIDERS: ATTEND General Practice
DX: C21.0 Malignant neoplasm of anus, unspecified (principal); Z71.2 Person consulting for explanation of examination or test findings; Z92.21 Personal history of antineoplastic chemotherapy; Z92.3 Personal history of irradiation; Z79.4 Long term (current) use of insulin; Z79.01 Long term (current) use of anticoagulants; Z79.890 Hormone replacement therapy; Z79.891 Long term (current) use of opiate analgesic; Z79.899 Other long term (current) drug therapy; Z88.0 Allergy status to penicillin; Z88.1 Allergy status to other antibiotic agents; Z88.5 Allergy status to narcotic agent; Z88.6 Allergy status to analgesic agent; Z88.8 Allergy status to other drugs, medicaments and biological substances; Z91.013 Allergy to seafood; Z91.018 Allergy to other foods; Z91.048 Other nonmedicinal substance allergy status

== ENCOUNTER → 2023-03-14 | Outpatient (CLI) | payer OTHER ==
[~2023-03-14] MED LIST changes: +OXYC-1 PO; +OXYC-673 PO; +OXYC20TA64 PO; +POLY17PO18 PO; +PROC5TAB57 PO
== END ==
LOC: M PAL 15:18 → M ONCR 03-20 15:18 → M PAL 03-20 15:18
PROVIDERS: ATTEND Nurse Practitioner Family
DX: C21.0 Malignant neoplasm of anus, unspecified (principal); G89.3 Neoplasm related pain (acute) (chronic); E11.9 Type 2 diabetes mellitus without complications; M19.90 Unspecified osteoarthritis, unspecified site; M62.81 Muscle weakness (generalized); R29.6 Repeated falls; Z51.5 Encounter for palliative care; Z74.1 Need for assistance with personal care; Z79.4 Long term (current) use of insulin; Z79.84 Long term (current) use of oral hypoglycemic drugs; Z79.890 Hormone replacement therapy; Z79.891 Long term (current) use of opiate analgesic; Z79.899 Other long term (current) drug therapy; Z88.0 Allergy status to penicillin; Z88.5 Allergy status to narcotic agent; Z88.6 Allergy status to analgesic agent; Z88.8 Allergy status to other drugs, medicaments and biological substances; Z93.3 Colostomy status; Z91.013 Allergy to seafood; Z91.018 Allergy to other foods; Z66 Do not resuscitate

== ENCOUNTER → 2023-03-26 | Outpatient (CLI) | payer OTHER | LOC: M PAL 08:14 | PROVIDERS: ATTEND Nurse Practitioner Adult Health | DX: C21.0 Malignant neoplasm of anus, unspecified (principal); G89.3 Neoplasm related pain (acute) (chronic); G57.93 Unspecified mononeuropathy of bilateral lower limbs; I10 Essential (primary) hypertension; E11.9 Type 2 diabetes mellitus without complications; M19.90 Unspecified osteoarthritis, unspecified site; M62.81 Muscle weakness (generalized); R29.6 Repeated falls; Z51.5 Encounter for palliative care; Z74.1 Need for assistance with personal care; Z79.4 Long term (current) use of insulin; Z79.84 Long term (current) use of oral hypoglycemic drugs; Z79.890 Hormone replacement therapy; Z79.891 Long term (current) use of opiate analgesic; Z79.899 Other long term (current) drug therapy; Z88.0 Allergy status to penicillin; Z88.5 Allergy status to narcotic agent; Z88.6 Allergy status to analgesic agent; Z88.8 Allergy status to other drugs, medicaments and biological substances; Z93.3 Colostomy status; Z91.013 Allergy to seafood; Z91.018 Allergy to other foods; Z66 Do not resuscitate ==

== ENCOUNTER → 2023-03-28 | Outpatient (CLI) | payer OTHER | LOC: M PAL 08:05 | PROVIDERS: ATTEND Nurse Practitioner Adult Health | DX: C21.0 Malignant neoplasm of anus, unspecified (principal); G89.3 Neoplasm related pain (acute) (chronic); K43.5 Parastomal hernia without obstruction or gangrene; K59.00 Constipation, unspecified; R29.6 Repeated falls; R63.0 Anorexia; Z51.5 Encounter for palliative care; Z74.1 Need for assistance with personal care; Z79.4 Long term (current) use of insulin; Z79.84 Long term (current) use of oral hypoglycemic drugs; Z79.890 Hormone replacement therapy; Z79.891 Long term (current) use of opiate analgesic; Z79.899 Other long term (current) drug therapy; Z88.0 Allergy status to penicillin; Z88.5 Allergy status to narcotic agent; Z88.6 Allergy status to analgesic agent; Z88.8 Allergy status to other drugs, medicaments and biological substances; Z91.013 Allergy to seafood; Z91.018 Allergy to other foods; Z66 Do not resuscitate; Z92.21 Personal history of antineoplastic chemotherapy; Z92.3 Personal history of irradiation; Z93.3 Colostomy status ==